=== PATIENT | female | born 1935 | race Caucasian/White ===

== ENCOUNTER 2017-10-05 14:32 | Emergency (ER) | payer MEDICARE, BC, OTHER ==
[2017-10-05 14:56] VITALS: BP 127/57
--- NOTE | 2017-10-05 15:51 | RAD ---
Indication: Posterior LEFT knee pain and edema. No preceding injury. Comparison: No relevant prior exams available on the [facility] PACS for comparison. Technique: LEFT knee: AP, tunnel, crosstable lateral, and sunrise views. Report: Negative for joint effusion, fracture, or malalignment. Minimal osteophytosis. Negative for significant joint space narrowing. Unremarkable soft tissue contours. IMPRESSION: Kellgren and Stewart grade 1 osteoarthritis.
--- NOTE | 2017-10-05 16:08 | UC ---
Knee Pain HPI - HPI Summary HPI Summary: 82 yo female with left knee pain (popliteal) x about a day last pm her leg buckled and she fell on knee hurts to lift leg no hip pain - History of Current Complaint Chief Complaint: UCLowerExtremity Stated Complaint: LEG COMPLAINT Time Seen by Provider: 10/05/17 14:57 Hx Obtained From: Patient Onset/Duration: Gradual Onset, Lasting Days Severity Initially: Moderate Severity Currently: Moderate Location Of Injury: leftt knee pain Pain Intensity: 6 - wt bearing Pain Scale Used: 0-10 Numeric Character: Dull, Aching Aggravating Factor(s): Movement, Weight Bearing Alleviating Factor(s): Rest Associated Signs And Symptoms: Positive: Negative Able to Bear Weight: Yes - Allergies/Home Medications Allergies/Adverse Reactions: Allergies Allergy/AdvReac Type Severity Reaction Status Date / Time Nabumetone [From Relafen] Allergy Swelling Verified 10/05/17 14:44 Of Face,Lips,& Throat Sulfa Antibiotics Allergy Rash Verified 10/05/17 14:44 PMH/Surg Hx/FS Hx/Imm Hx Endocrine History: Diabetes, Hypothyroidism, Dyslipidemia Cardiovascular History: Hypertension - Surgical History Surgical History: Yes Surgery Procedure, Year, and Place: HYSTERECTOMY 1984-APPENDECTOMY AGE 15- DETACHED RETINA-CLEARED BY ORBIT XRAY IN 2003 - Family History Known Family History: Positive: Hypertension Negative: Other - no breast cancer - Social History Alcohol Use: None Substance Use Type: None Smoking Status (MU): Never Smoked Tobacco Review of Systems Constitutional: Negative Skin: Negative Eyes: Negative ENT: Negative Respiratory: Negative Cardiovascular: Negative Gastrointestinal: Negative Genitourinary: Negative Motor: Negative Neurovascular: Negative Musculoskeletal: Arthralgia Neurological: Negative Psychological: Negative Is Patient Immunocompromised?: No All Other Systems Reviewed And Are Negative: Yes Physical Exam Triage Information Reviewed: Yes Appearance: Well-Appearing, No Pain Distress, Well-Nourished Vital Signs: Initial Vital Signs Temp 99.6 F 10/05/17 14:49 Pulse 74 10/05/17 14:49 Resp 16 10/05/17 14:49 BP 127/57 10/05/17 14:49 Pulse Ox 97 10/05/17 14:49 Vital Signs Reviewed: Yes Eyes: Positive: Conjunctiva Clear ENT: Positive: Hearing grossly normal. Negative: Nasal congestion, Nasal drainage, Trismus, Muffled voice, Uvula midline Neck: Positive: Supple, Nontender, No Lymphadenopathy Respiratory: Positive: Lungs clear, Normal breath sounds Cardiovascular: Positive: RRR, No Murmur Musculoskeletal: Positive: Strength Intact, No Edema - left calf not tender or warm, ROM Limited @ - left knee- pain with full extension, Other: - tender left popliteal fossa/no venous cords palpated Psychological Exam: Normal Skin Exam: Normal Knee Pain Course/Dx - Differential Dx/Diagnosis Provider Diagnoses: left knee pain. mild DJD. ? Bakers cyst Discharge - Discharge Plan Condition: Stable Disposition: HOME Patient Education Materials: Bakers Cyst (ED), Knee Pain (ED) Referrals: Prateek Hayes MD [Medical Doctor] - As Soon As Possible Additional Instructions: I am unsure of the cause of the pain behind your left knee It may be a Louis's Cyst You need further work up Dr. Hayes is the orthopedist decontaminator if you leg starts to swell or turns red/warm to touch you need to go to the ER try the knee immobilizer when wt bearing Images Front/Back of Body, Lg ([place]): 1 - circumference =R&L 2 - 10 cm below tibial turbercle. L=R
== END 2017-10-05 16:23 | disposition home or self-care (01) ==
LOC: UCEAST 14:32
DX: M25.562 Pain in left knee (principal); M17.12 Unilateral primary osteoarthritis, left knee; E11.9 Type 2 diabetes mellitus without complications; E03.9 Hypothyroidism, unspecified; E78.5 Hyperlipidemia, unspecified; I10 Essential (primary) hypertension; Z90.710 Acquired absence of both cervix and uterus; Z88.2 Allergy status to sulfonamides; Z88.8 Allergy status to other drugs, medicaments and biological substances
CPT/HCPCS: 99211; G0463

== ENCOUNTER 2017-12-14 17:12 | Emergency (ER) | payer MEDICARE, BC, OTHER ==
[2017-12-14 17:24] VITALS: BP 146/66
[2017-12-14] MEDS ORDERED: Acetaminophen TAB* 325 MG PO ONE (17:44)
--- NOTE | 2017-12-14 17:58 | UC ---
Enzo Hassan Gabriel, scribed for Brittney Sutherland MD on 12/14/17 at 1743 . Upper Extremity HPI - HPI Summary HPI Summary: This patient is a 82 year old F 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 Pt was bending over and pushing a box across the floor and she "tipped over" forward. It was a low impact fall since she was already bent over and land she landed on the carpet. Pt states she has frontal head discomfort since, but it getting better. Pt also reports discomfort in forearm. States put arm out to support self. No LOC. Pt denies bleeding from ears,, nose, mouth. No neck pain, back pain, ABD pain, SOB, nausea, increased LE pain from baseline, bruising, and any abrasions. no bleeding. Pt is on Plavix. She was able to get up by herself and ambulate after, she also ambulated into . pt has a cane but rarely uses. Pt is on plavix for a prior CVA. No analgesia taken pt's live with SO son present with her in room Patients medication reviewed during this visit. - History of Current Complaint Chief Complaint: UCUpperExtremity Stated Complaint: HEAD INJURY Time Seen by Provider: 12/14/17 17:20 Hx Obtained From: Patient Hx Last Menstrual Period: post menopause Onset/Duration: Lasting Minutes - 30, Still Present Severity Initially: Moderate Severity Currently: Moderate Pain Intensity: 6 Pain Scale Used: 0-10 Numeric Aggravating Factor(s): Movement Alleviating Factor(s): Rest, Other: - time Associated Signs And Symptoms: Negative: Bruising - Allergies/Home Medications Allergies/Adverse Reactions: Allergies Allergy/AdvReac Type Severity Reaction Status Date / Time nabumetone [From Relafen] Allergy Swelling Verified 12/14/17 17:25 Of Face,Lips,& Throat Sulfa (Sulfonamide Allergy Rash Verified 12/14/17 17:25 Antibiotics) PMH/Surg Hx/FS Hx/Imm Hx Previously Healthy: Yes Cardiovascular History: Cardiac Disease, Hypertension Neurological History: CVA - Surgical History Surgical History: Yes Surgery Procedure, Year, and Place: HYSTERECTOMY 1984-APPENDECTOMY AGE 15- DETACHED RETINA-CLEARED BY ORBIT XRAY IN 2003. MEDTRONIC LINQ 11-OK FOR UP TO 3T-PLACED AT [facility] 06/2016-ALL INFO DOCUTMENTED - Family History Known Family History: Positive: Hypertension, Renal Disease Negative: Respiratory Disease, Seizure Disorder, Other - no breast cancer - Social History Occupation: Retired Lives: With Family Alcohol Use: None Substance Use Type: None Smoking Status (MU): Never Smoked Tobacco Review of Systems Constitutional: Negative Skin: Other - no brusing, no abraison ENT: Negative Respiratory: Negative Musculoskeletal: Other: - RUE pain Neurological: Headache - frontal All Other Systems Reviewed And Are Negative: Yes Physical Exam Triage Information Reviewed: Yes Appearance: Well-Appearing, No Pain Distress, Well-Nourished Vital Signs: Initial Vital Signs Temp 97.7 F 12/14/17 17:17 Pulse 77 12/14/17 17:17 Resp 16 12/14/17 17:17 BP 146/66 12/14/17 17:17 Pulse Ox 99 12/14/17 17:17 Vital Signs Reviewed: Yes Eye Exam: Normal Eyes: Positive: Conjunctiva Clear ENT Exam: Normal ENT: Positive: Normal ENT inspection, Hearing grossly normal, Pharynx normal, TMs normal Dental Exam: Normal Neck exam: Normal Neck: Positive: Supple, Nontender, No Lymphadenopathy Respiratory Exam: Normal Respiratory: Positive: Chest non-tender, Lungs clear, Normal breath sounds, No respiratory distress, No accessory muscle use Cardiovascular Exam: Normal Cardiovascular: Positive: RRR, No Murmur, Pulses Normal Abdominal Exam: Normal Abdomen Description: Positive: Nontender, No Organomegaly, Soft Musculoskeletal: Positive: Other: - no pain c/t/l/s Full AROM c spine without difficulty or limitation Full AROM LUE RUE: + abduction, extend right shoulder + flex/ext elbow with mild discomfort prox forearm + pronate/supinate with mild discomfort prox forearm + flex/ext wrist minimal discomfort with direct palp right prox forearm, dorsal side no crepitus, ecchymosis, edema Neurological Exam: Normal Psychological Exam: Normal Skin Exam: Normal, Other - No ecchymosis, abraison Diagnostics - Radiology forearm Xray Radiology Interpretation Completed By: Radiologist - SOFT TISSUE SWELLING, NO FRACTURE IS SEEN. Dr. Sutherland has reviewed this report. CT BRain Radiology Interpretation Completed By: Radiologist - 1. NO EVIDENCE FOR ACUTE INTRACRANIAL ABNORMALITY. 2. TINY AIR-FLUID LEVEL WITHIN THE LEFT MAXILLARY SINUS Dr. Sutherland has reviewed this report. Re-Evaluation - Re-Evaluation First Eval Comment: reviewed imagingwith pt and son. apap Q6-8. ice. stretch. cane. return precautions Upper Extremity Course/Dx - Course Course Of Treatment: BP noted and advised to follow up with PCP. Pt with mechanical fall forward while bending forward. Pt struck frontal scalp and discomfort to right forearm. No bleeding, skin wounds. will CT head and forearm - low suspicion for fx or bleed. APAP. reassess - Differential Dx/Diagnosis Provider Diagnoses: hypertension, contusion Discharge - Discharge Plan Condition: Stable Disposition: HOME Patient Education Materials: Contusion in Adults (ED) Referrals: Estefanía MOTLEY,Roxanne Munguia [Primary Care Provider] - Additional Instructions: Your blood pressure was elevated during today's visit. Please follow up with your primary care provider in 1-2 weeks. - Okay to take Tylenol every 6-8 hours for discomfort. Take with food - anticipate increased discomfort over the next 1-2 days. This is normal after a fall - okay to apply ice (wrapped in a towel) 20 minutes at a time, 2-3 times a day for pain. Do not put directly on your skin - this may cause vides bite - slow, gentle stretching exercises is important to help with body aches following a fall - call your doctor or return with questions or concerns The documentation as recorded by the Enzo short Gabriel accurately reflects the service I personally performed and the decisions made by me, Brittney Sutherland MD.
--- NOTE | 2017-12-14 18:15 | RAD ---
INDICATION: Right forearm injury. TECHNIQUE: 2 views of the right forearm were obtained. FINDINGS: There is soft tissue swelling in the proximal forearm. The bones are normal limits. No fracture is seen. IMPRESSION: SOFT TISSUE SWELLING, NO FRACTURE IS SEEN.
--- NOTE | 2017-12-14 18:34 | RAD ---
INDICATION: Head injury. COMPARISON: Comparison is made with a prior CT of the brain from May 13, 2016. TECHNIQUE: Contiguous axial sections of the brain were obtained from the skull base to the vertex without contrast. FINDINGS: The ventricles, cisterns and sulci are enlarged consistent with diffuse atrophy. There are small areas of decreased density in the subcortical and periventricular white matter suggestive of mild chronic small vessel ischemic changes. No other focal abnormality or mass effect is seen. There is no evidence for hemorrhage. There is a tiny air-fluid level within the left maxillary sinus. The visualized portion of the paranasal sinuses and mastoid air cells otherwise appear clear. IMPRESSION: 1. NO EVIDENCE FOR ACUTE INTRACRANIAL ABNORMALITY. 2. TINY AIR-FLUID LEVEL WITHIN THE LEFT MAXILLARY SINUS
== END 2017-12-14 18:54 | disposition home or self-care (01) ==
LOC: UCEAST 17:12
DX: S09.90XA Unspecified injury of head, initial encounter (principal); S50.11XA Contusion of right forearm, initial encounter; W18.30XA Fall on same level, unspecified, initial encounter; Y93.89 Activity, other specified; Y92.9 Unspecified place or not applicable; I11.9 Hypertensive heart disease without heart failure; Z86.73 Personal history of transient ischemic attack (TIA), and cerebral infarction without residual deficits; Z79.01 Long term (current) use of anticoagulants; Z88.2 Allergy status to sulfonamides; Z88.8 Allergy status to other drugs, medicaments and biological substances
CPT/HCPCS: 70450; 99212; A9270-GY; G0463

== ENCOUNTER 2018-02-15 07:57 | Emergency (ER) | payer MEDICARE, BC, OTHER ==
--- OUTSIDE RECORDS SUMMARY | 2018-02-15 08:08 | XMS REPORT ---
:1935 External Reference #:[id number] Author Organization [facility] Address [address] [place] [address] Phone [phone] Care Team Providers Name Role Phone Roxanne José Primary Care Physician Unavailable Payers Type Date Identification Numbers Payment Provider Subscriber Medicare Primary Policy Number: [id number] Medicare - NGS Emma Vergara PayID: [id number] [address] [place] [address] [employer] Policy Number: [id number] [place] [employer] Emma Vergara Group Number: [id number] [address] [address] PayID: [id number] [place] [id number] Commercial Policy Number: [id number] Janice Neeraj Vergara Group Number: [id number] [address] PayID: [id number] [place] [address] Problems Date Description Provider Status Onset: Hearing loss Active Onset: Gastroesophageal reflux disease Active Onset: Hyperthyroidism Active Onset: Tachycardia Active Onset: Arthritis Active Onset: Neuralgia Active Onset: Anxiety attack Active Onset: 05/02/2015 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 Active Onset: 05/02/2015 Cortical senile cataract Vale Charles O.D. 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 Active Onset: 02/13/2016 Retinal detachment Vale Charles O.D. Active Onset: 02/13/2016 Hypermetropia Vale Charles O.D. Active Onset: 02/13/2016 Regular astigmatism Vale Charles O.D. Active Onset: 02/13/2016 Presbyopia Vale Charles O.D. 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 twice a day prn Omeprazole Active Capsules DR 20mg Unknown 000 Synthroid Active Tablets 75mcg Unknown 000 Atenolol Active Tablets 50mg Unknown [address] 81mg twice a Unknown 000 day by mouth Vitamin B-12 Active Tablets Sub 500mcg Unknown 000 Clonazepam Active Tablets 1mg Unknown 000 Lexapro Active Tablets 10mg Unknown 000 Vitamin D3 Active Tablets 1000Unit Unknown 000 Carbamazepine ER Active Caps ER 200mg Unknown 000 12HR Atorvastatin Active Tablets 20mg Unknown Calcium 000 Clopidogrel Active Tablets 75mg Unknown Bisulfate 000 Medications Administered in Office Medication Date Status Form Strength Qnty SIG Indications Ordering Provider Crizal Administered Injection [place] 3 Elinor Thrasher Results Description No Information Procedures Date CPT Code Description Status 01/15/2017 85390 Est Patient Comprehensive Exam Completed 02/13/2016 51550 Determination Of Refractive State Completed 02/13/2016 17935 Est Patient Comprehensive Exam Completed 05/02/2015 51791 Est Patient Comprehensive Exam Completed 04/28/2014 95283 Determination Of Refractive State Completed 04/28/2014 93012 Est Patient Comprehensive Exam Completed 09/21/2013 39297 Est Patient Comprehensive Exam Completed 03/24/2013 75263 Est Patient Intermediate Exam Completed 09/21/2012 54775 Pachymetry Completed 03/25/2012 45367 Est Patient Intermediate Exam Completed 03/25/2011 59881 Est Patient Comprehensive Exam Completed 07/24/2010 07062 Est Patient Intermediate Exam Completed 03/20/2010 48260 Est Patient Comprehensive Exam Completed 06/21/2009 68741 Determination Of Refractive State Completed 06/21/2009 72147 Est Patient Comprehensive Exam Completed 12/11/2008 36600 Est Patient Intermediate Exam Completed 07/24/2008 21952 Determination Of Refractive State Completed 07/24/2008 61838 Est Patient Comprehensive Exam Completed 11/11/2006 60422 Recheck Completed 01/15/2006 11000 Determination Of Refractive State Completed 01/15/2006 11635 Est Patient Comprehensive Exam Completed 08/15/2003 113 Crizal Completed Encounters Type Date Location Provider CPT E/M Dx Office Visit 09/21/2012 11:15a Scar Alvarez MD, Dave Carrillo M.D. [id number] 366.15 pc 371.57 Office Visit 09/24/2011 1:00p Scar Alvarez MD, Dave Carrillo M.D. 69591 371.57 pc Office Visit 09/02/2010 4:15p Scar Alvarez MD, Denise Bell O.D. 47756 375.15 pc Office Visit 08/26/2010 2:15p Scar Alvarez MD, Denise Bell O.D. 77861 375.15 pc 371.57 Office Visit 08/01/2010 11:45a Scar Alvarez MD, Denise Bell O.D. 54746 371.57 pc Plan of Care 02/10/2018 - Vale Charles O.D.H25.13 Age-related nuclear cataract, bilateralComments:You have nuclear sclerosis, which is hardening of your natural lens. This is normal as a person ages.Follow up:1 year You can expect to have your eyes dilated at your next visit. If Dr. Charles orders any additional testing, it may require extra time. We recommend that you bring sunglasses, as dilation drops often make you light sensitive until they wear off. We always recommend you bring someone to drive you home if you are uncomfortable driving with your eyes dilated. If you have any questions before your next visit, feel free to call our office at .H18.51 Endothelial corneal dystrophyComments:You have Fuch's corneal dystrophy. This may cause reduced vision. If you are noticing blurred vision, especially in the morning, use Karolina 128 ointment in affected eyes before bedtime.H52.03 Hypermetropia, [id number] Regular astigmatism, bilateralComments: Astigmatism is a common vision condition that happens when a person's cornea is not symmetrical. Dr. Charles has given you a prescription to correct for this.H52.4 PresbyopiaComments:Smoking can increase the risk of developing or worsening any eye related disease, as well as affect your overall health. If you are a smoker, we strongly recommend that you quit.If you are not a smoker, we strongly recommend that you do not start. You have presbyopia. This is when the lens in your eye loses the ability to change focus, and happens as we age. A pair of reading glasses will help you see up close.
--- OUTSIDE RECORDS SUMMARY | 2018-02-15 08:08 | XMS REPORT ---
:1935 External Reference #:[id number] Author Organization [facility] [employer] Address [address] [place] [address] Phone [phone] Care Team Providers Name Role Phone Roxanne José Primary Care Physician Unavailable Payers Type Date Identification Numbers Payment Provider Subscriber Medicare Primary Policy Number: [id number] Medicare - NGS Emma Vergara PayID: [id number] [address] [place] [address] [employer] Policy Number: [id number] [place] [employer] Emma Vergara Group Number: [id number] [address] [address] PayID: [id number] [place] [address] Commercial Policy Number: [id number] Janice Neeraj Vergara Group Number: [id number] [address] PayID: [id number] [place] [address] Problems Date Description Provider Status Onset: Hearing [...] Marital Status Has been 1 time 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 twice a day prn Omeprazole [...] Procedures Date CPT Code Description Status 01/15/2017 08907 Est Patient Comprehensive Exam Completed 02/13/2016 82602 Determination Of Refractive State Completed 02/13/2016 48145 Est Patient Comprehensive Exam Completed 05/02/2015 67493 Est Patient Comprehensive Exam Completed 04/28/2014 08305 Determination Of Refractive State Completed 04/28/2014 30871 Est Patient Comprehensive Exam Completed 09/21/2013 97332 Est Patient Comprehensive Exam Completed 03/24/2013 75149 Est Patient Intermediate Exam Completed 09/21/2012 53982 Pachymetry Completed 03/25/2012 53568 Est Patient Intermediate Exam Completed 03/25/2011 23043 Est Patient Comprehensive Exam Completed 07/24/2010 09120 Est Patient Intermediate Exam Completed 03/20/2010 94557 Est Patient Comprehensive Exam Completed 06/21/2009 50752 Determination Of Refractive State Completed 06/21/2009 78643 Est Patient Comprehensive Exam Completed 12/11/2008 32071 Est Patient Intermediate Exam Completed 07/24/2008 69609 Determination Of Refractive State Completed 07/24/2008 21295 Est Patient Comprehensive Exam Completed 11/11/2006 54295 Recheck Completed 01/15/2006 41951 Determination Of Refractive State Completed 01/15/2006 63978 Est Patient Comprehensive Exam Completed 08/15/2003 113 Crizal Completed Encounters Type Date Location Provider CPT E/M Dx Office Visit 09/21/2012 11:15a Scar Alvarez MD, Dave Carrillo M.D. 99753 366.15 pc 371.57 Office Visit 09/24/2011 1:00p Scar Alvarez MD, Dave Carrillo M.D. 89104 371.57 pc Office Visit 09/02/2010 4:15p Scar Alvarez MD, Denise Bell O.D. 67595 375.15 pc Office Visit 08/26/2010 2:15p Scar Alvarez MD, Denise Bell O.D. 42326 375.15 pc 371.57 Office Visit 08/01/2010 11:45a Scar Alvarez MD, Denise Bell O.D. 35800 371.57 pc Plan of Care 02/10/2018 - [...] ointment in affected eyes before bedtime.H52.03 Hypermetropia, [id number] Regular astigmatism, bilateralComments: Astigmatism is a common [...]
--- OUTSIDE RECORDS SUMMARY | 2018-02-15 08:09 | XMS REPORT ---
:1935 External Reference #:[id number] Author Organization [facility] Address [address] [address] Phone [phone] Care Team Providers Name Role Phone Roxanne José PA Primary Care Physician Unavailable Payers Type Date Identification Numbers Payment Provider Subscriber Medicare Primary Effective: Policy Number: Medicare Emma Vergara 2000 [id number] PayID: [id number] [address] [place] [address] Medigap Part B Effective: 2012 Policy Number: BS Facets Emma Vergara [id number] PayID: [id number] [address] [address] [place] [address] Medigap Part B Policy Number: [id number] [facility] Emma Vergara Group Number: [id number] [address] PayID: [id number] [place] [address] Problems Date Description Provider Status Onset: 05/30/2015 Trigeminal neuralgia Gui Rich M.D. Active Onset: 03/20/2016 Essential hypertension Ria Brothers M.D. Active Onset: 06/02/2016 Cerebral artery occlusion Ria Brothers M.D. Active Onset: 06/02/2016 Mixed hyperlipidemia Ria Brothers M.D. Active Onset: 12/05/2016 Presence of other cardiac implants Ria Brothers M.D. Active and grafts Onset: 01/22/2017 Sinus node dysfunction Ria Brothers M.D. Active Onset: 01/22/2017 Supraventricular premature beats Ria Brothers M.D. Active Onset: 01/22/2017 History of cerebrovascular accident Ria Brothers M.D. Active without residual deficits Onset: 10/09/2017 Localized, primary osteoarthritis Ruthy Tolliver M.D. Active Family History Date Family Member(s) Problem(s) Comments General Heart Disease General Hypertension General Stroke General Cancer Father Emphysema Mother Kidney Disease First Brother Emphysema Second Brother Liver Cancer Third Brother Lung Cancer First Sister Cerebrovascular Accident (CVA) ? arrhythmia, in [place], occured 2016. Social History Type Date Description Comments Lives With Occupation Retired Cigarette Use Never Smoked Cigarettes ETOH Use Never used alcohol Smoking Patient has never smoked Recreational Drug Use Denies Drug Use Daily Caffeine once or twice a week hot chocolate only Exercise Type/Frequency Exercises sporadically General Hx Text Worked in a [employer] ([place]) Allergies, Adverse Reactions, Alerts Date Description Reaction Status Severity Comments 04/12/2013 Relafen active 04/12/2013 Sulfa Antibiotics active Medications Medication Date Status Form Strength Qnty SIG Indications Ordering Provider Clonazepam 00/00/ Active Tablets 1mg 20tabs 1 tab Unknown 0000 three times a day . MDD=3 Lexapro 00/00/ Active Tablets 10mg 30tabs 1 po bid Unknown 0000 Refresh 00/00/ Active Solution 1% 1 gtt each Unknown Liquigel 0000 eye prn Karolina 128 00/00/ Active Solution 2% 1 gtt each Unknown 0000 eye bid Synthroid 00/00/ Active Tablets 75mcg 90tabs 1 po qd Unknown 0000 Carbamazepine 00/00/ Active Tablets 200mg 180tab 1 tab by Gui Mcintosh 0000 s mouth Hilario, twice a M.D. day Atenolol 0000/ Active Tablets 50mg 180tab 1 by mouth Ria 0000 s every Deneen, morning M.D. and 1 tab every evening Vitamin B-12 00/00/ Active Tablets 500mcg 1 tab po Unknown 0000 every day Natural Vitamin D-3 00/00/ Active Capsule 1000mg 1 cap po Unknown 0000 daily Atorvastatin 00/00/ Active Tablets 20mg take 1 Unknown Calcium 0000 tablet at bedtime Clopidogrel 00/00/ Active Tablets 75mg 90tabs 1 by mouth Gui Mcintosh Bisulfate 0000 every day Rama Rich Acetaminophen 00/00/ Active Tablets 325mg 2 tablets Unknown 0000 by mouth every 6 hours as needed for pain/fever Vitamin C / Active Tablets 500mg 1 by mouth Unknown 0000 twice a day Omeprazole / Hx Capsules 20mg 1 po qam Unknown 0000 - DR 2015 Aspirin Low / Hx Tablets 81mg 30tabs 1 po qd Unknown Dose 0000 - 2016 Iron Supplement / Hx Tablets 325(65Fe) by mouth Unknown 0000 - mg every day 2016 Acetaminophen / Hx Tablets 500mg 2 tab by Unknown Extra Strength 0000 - mouth daily 2015 needed for arthritis Medications Administered in Office Medication Date Status Form Strength Qnty SIG Indications Ordering Provider Depomedrol 40MG 10/09/ Administered Injection Ruthy 2017 Rama Tolliver Inj, 03/18/ Administered Injection Mario Gorman Regadenoson, 0.1 2015 MG Rama Tong, FACC, FASNC Aminophylline 03/18/ Administered Injection Mario Gorman 2015 Rama Tong, FACC, FASDOMINGO Technetium TC 03/18/ Administered Injection Mario Gorman 99M Tetrofosmin, 2016 Ran, Per Unit Dose Up M.D., To 40 FACC, Millicuries FASNC Technetium TC 03/18/ Administered Injection Ria 99M Tetrofosmin, 2016 Deneen, Per Unit Dose Up M.D. To 40 Millicuries Vital Signs Date Vital Result Comment 01/22/2018 Height 60 inches 5'0" Weight 180.75 lb with shoes Heart Rate 80 /min BP Systolic Sitting 128 mmHg Rue reg cuff BP Diastolic Sitting 60 mmHg Rue reg cuff BP Systolic Standing 122 mmHg Rue reg cuff BP Diastolic Standing 70 mmHg Rue reg cuff Respiratory Rate 16 /min BMI (Body Mass Index) 35.3 kg/m2 11/04/2017 Height 60 inches 5'0" Weight 179.00 lb Heart Rate 72 /min BP Systolic 150 mmHg BP Diastolic 60 mmHg Pain Level 10 BMI (Body Mass Index) 35.0 kg/m2 11/02/2017 Height 60 inches 5'0" Weight 179.00 lb Heart Rate 71 /min BP Systolic Sitting 136 mmHg BP Diastolic Sitting 72 mmHg Respiratory Rate 17 /min BMI (Body Mass Index) 35.0 kg/m2 10/21/2017 Height 60 inches 5'0" Weight 179.00 lb BP Systolic 126 mmHg BP Diastolic 60 mmHg Body Temperature 97.5 F Pain Level 8 BMI (Body Mass Index) 35.0 kg/m2 10/09/2017 Height 63 inches 5'3" Weight 179.00 lb BP Systolic 148 mmHg BP Diastolic 80 mmHg Body Temperature 97.6 F BMI (Body Mass Index) 31.7 kg/m2 07/24/2017 Height 63.5 inches 5'3.50" Weight 180.00 lb w/ shoes Heart Rate 70 /min reg BP Systolic Sitting 130 mmHg Lue, lg cuff BP Diastolic Sitting 70 mmHg Lue, lg cuff Respiratory Rate 16 /min BMI (Body Mass Index) 31.4 kg/m2 Ejection Fraction 60% as of 04/2006 echo 05/28/2017 Height 63.5 inches 5'3.50" Weight 178.25 lb with shoes Heart Rate 76 /min BP Systolic Sitting 148 mmHg Rue reg cuff BP Diastolic Sitting 66 mmHg Rue reg cuff BP Systolic Standing 142 mmHg Rue reg cuff BP Diastolic Standing 66 mmHg Rue reg cuff Respiratory Rate 16 /min BMI (Body Mass Index) 31.1 kg/m2 Ejection Fraction 60% 04/27/2006-echo 03/03/2017 Height 63.5 inches 5'3.50" Weight 176.00 lb with shoes Heart Rate 72 /min BP Systolic Sitting 134 mmHg Rue reg cuff BP Diastolic Sitting 56 mmHg Rue reg cuff BP Systolic Standing 138 mmHg Rue regc uff BP Diastolic Standing 66 mmHg Rue regc uff Respiratory Rate 16 /min BMI (Body Mass Index) 30.7 kg/m2 Ejection Fraction 60% echo 04/200601/22/2017 Height 63.5 inches 5'3.50" Weight 172.00 lb w/ shoes Heart Rate 72 /min reg BP Systolic Sitting 138 mmHg Lue, reg cuff BP Diastolic Sitting 70 mmHg Lue, reg cuff BP Systolic Standing 130 mmHg Lue BP Diastolic Standing 66 mmHg Lue Respiratory Rate 16 /min BMI (Body Mass Index) 30.0 kg/m2 12/05/2016 Height 63.5 inches 5'3.50" Weight 172.00 lb Heart Rate 64 /min BP Systolic Sitting 142 mmHg left arm, reg cuff BP Diastolic Sitting 74 mmHg left arm, reg cuff BP Systolic Standing 134 mmHg left arm, reg cuff BP Diastolic Standing 72 mmHg left arm, reg cuff Respiratory Rate 16 /min BMI (Body Mass Index) 30.0 kg/m2 Ejection Fraction 55-60% 05/15/16 Fernando 10/08/2016 Height 63.5 inches 5'3.50" Weight 178.00 lb Heart Rate 68 /min BP Systolic Sitting 116 mmHg BP Diastolic Sitting 60 mmHg Respiratory Rate 16 /min BMI (Body Mass Index) 31.0 kg/m2 08/08/2016 Height 63.5 inches 5'3.50" Weight 168.00 lb Heart Rate 78 /min BP Systolic Sitting 136 mmHg BP Diastolic Sitting 64 mmHg BMI (Body Mass Index) 29.3 kg/m2 06/27/2016 Height 63.5 inches 5'3.50" Weight 169.00 lb with shoes Heart Rate 64 /min BP Systolic Sitting 132 mmHg Ra reg cuff BP Diastolic Sitting 64 mmHg Ra reg cuff BP Systolic Standing 132 mmHg Ra reg cuff BP Diastolic Standing 66 mmHg Ra reg cuff Respiratory Rate 17 /min BMI (Body Mass Index) 29.5 kg/m2 Ejection Fraction 60% 04/27/06 06/16/2016 Height 63.5 inches 5'3.50" Weight 170.00 lb Heart Rate 69 /min BP Systolic Sitting 130 mmHg BP Diastolic Sitting 72 mmHg Respiratory Rate 16 /min O2 % BldC Oximetry 97 % BMI (Body Mass Index) 29.6 kg/m2 06/02/2016 Height 63.5 inches 5'3.50" Weight 170.00 lb without shoes Heart Rate 75 /min BP Systolic Sitting 110 mmHg Ra reg cuff BP Diastolic Sitting 60 mmHg Ra reg cuff BP Systolic Standing 118 mmHg Ra reg cuff BP Diastolic Standing 74 mmHg Ra reg cuff Respiratory Rate 17 /min BMI (Body Mass Index) 29.6 kg/m2 Ejection Fraction 60% date 04/27/06 ECHO 03/20/2016 Height 63.5 inches 5'3.50" Weight 175.00 lb with shoes Heart Rate 72 /min regular BP Systolic Sitting 112 mmHg right arm reg cuff BP Diastolic Sitting 64 mmHg right arm reg cuff BP Systolic Standing 116 mmHg right arm reg cuff BP Diastolic Standing 68 mmHg right arm reg cuff Respiratory Rate 18 /min BMI (Body Mass Index) 30.5 kg/m2 12/07/2015 Height 63.5 inches 5'3.50" Weight 173.31 lb with shoes Heart Rate 84 /min BP Systolic Sitting 132 mmHg Ra reg cuff BP Diastolic Sitting 62 mmHg Ra reg cuff BP Systolic Standing 136 mmHg Ra reg cuff BP Diastolic Standing 58 mmHg Ra reg cuff Respiratory Rate 16 /min BMI (Body Mass Index) 30.2 kg/m2 05/30/2015 Height 63.5 inches 5'3.50" Weight 180.00 lb Heart Rate 80 /min BP Systolic Sitting 130 mmHg BP Diastolic Sitting 70 mmHg Respiratory Rate 17 /min BMI (Body Mass Index) 31.4 kg/m2 04/11/2014 Height 63.5 inches 5'3.50" Weight 184.00 lb Heart Rate 72 /min BP Systolic Standing 136 mmHg BP Diastolic Standing 64 mmHg Respiratory Rate 16 /min BMI (Body Mass Index) 32.1 kg/m2 04/12/2013 Heart Rate 72 /min BP Systolic Sitting 126 mmHg BP Diastolic Sitting 26 mmHg Respiratory Rate 15 /min Results Test Date Test Result H/L Range Note Urinalysis Profile 05/13/2016 Urine Color Yellow Urine Appearance Clear Urine Specific [place] > 1.060 High 1.010-1.030 Urine pH 5.0 5-9 Urine Urobilinogen Negative Negative Urine Ketones Negative Negative Urine Protein Negative Negative Urine Leukocytes Negative Negative Urine Blood Negative Negative Urine Nitrite Negative Negative Urine Bilirubin Negative Negative Urine Glucose Negative Negative Type & Screen 05/13/2016 Patient Blood Type A Negative Antibody Screen NEGATIVE Laboratory test finding 05/13/2016 Troponin-I (TnI) 0.00 ng/mL <0.03 1 Lipid Profile (Trig/Chol/HDL) 05/13/2016 Triglycerides 215 mg/dL 2 Cholesterol 224 mg/dL 3 HDL Cholesterol 44.7 mg/dL 4 LDL Cholesterol 136 mg/dL 5 Comp Metabolic Panel 05/13/2016 Sodium 135 mmol/L 133-145 Potassium 4.2 mmol/L 3.5-5.0 Chloride 101 mmol/L 101-111 Co2 Carbon Dioxide 29 mmol/L 22-32 Anion Gap 5 mmol/L 2-11 Glucose 95 mg/dL 70-100 Blood Urea Nitrogen 26 mg/dL High 6-24 Creatinine 1.04 mg/dL High 0.51-0.95 BUN/Creatinine Ratio 25.0 High 8-20 Calcium 8.7 mg/dL 8.6-10.3 Total Protein 6.5 g/dL 6.4-8.9 Albumin 3.7 g/dL 3.2-5.2 Globulin 2.8 g/dL 2-4 Albumin/Globulin Ratio 1.3 1-3 Total Bilirubin 0.20 mg/dL 0.2-1.0 Alkaline Phosphatase 97 U/L 34-104 Alt 11 U/L 7-52 Ast 15 U/L 13-39 Egfr Non- 50.6 >60 Egfr 65.1 >60 6 Laboratory test finding 05/13/2016 Partial Thrombo Time 27.5 seconds 26.0 -36.3 PTT Inr/Protime 05/13/2016 Inr 0.91 0.89-1.11 Laboratory test finding 05/13/2016 Lactic Acid 0.7 mmol/L 0.5-2.0 7 CBC Auto Diff 05/13/2016 White Blood Count 6.7 10^3/uL 3.5-10.8 Red Blood Count 3.81 10^6/uL Low 4.0-5.4 Hemoglobin 10.0 g/dL Low 12.0-16.0 Hematocrit 31 % Low 35-47 Mean Corpuscular Volume 81 fL 80-97 Mean Corpuscular Hemoglobin 26 pg Low 27-31 Mean Corpuscular HGB Conc 33 g/dL 31-36 Red Cell Distribution Width 18 % High 10.5-15 Platelet Count 345 10^3/uL 150-450 Mean Platelet Volume 7 um3 Low 7.4-10.4 Abs Neutrophils 4.4 10^3/uL 1.5-7.7 Abs Lymphocytes 1.4 10^3/uL 1.0-4.8 Abs Monocytes 0.6 10^3/uL 0-0.8 Abs Eosinophils 0.1 10^3/uL 0-0.6 Abs Basophils 0.1 10^3/uL 0-0.2 Abs Nucleated RBC 0 10^3/uL Granulocyte % 66.5 % 38-83 Lymphocyte % 21.6 % Low 25-47 Monocyte % 9.4 % High 1-9 Eosinophil % 1.7 % 0-6 Basophil % 0.8 % 0-2 Nucleated Red Blood Cells % 0 1 Reference Range and Interpretation: TnI (ng/mL) Interpretation Less Than 0.03 ng/mL Not supportive of diagnosis of [place] 0.03 - 0.50 ng/mL Indeterminate: suggest serial studies if clinically indicated. Greater than 0.5 ng/mL Consistent with diagnosis of [place] 2 Desirable <150 Borderline high 150-199 High 200-499 Very High >500 3 Desirable <200 Borderline high 200-239 High >239 4 Low <40 Desirable: 40-60 High: >60 5 Desirable: <100 mg/dL Near Optimal: 100-129 mg/dL Borderline High: 130-159 mg/dL High: 160-189 mg/dL Very High: >189 mg/dL 6 Because ethnic data is not always readily available, this report includes an eGFR for both -Americans and non- Americans. The National Kidney Disease Education Program (NKDEP) does not endorse the use of the MDRD equation for patients that are not between the ages of 18 and 70, are , have extremes of body size, muscle mass, or nutritional status, or are non- or non-. According to the National Kidney Foundation, irrespective of diagnosis, the stage of the disease is based on the level of kidney function: Stage Description GFR(mL/min/1.73 m(2)) 1 Kidney damage with normal or decreased GFR 90 2 Kidney damage with mild decrease in GFR 60-89 3 Moderate decrease in GFR 30-59 4 Severe decrease in GFR 15-29 5 Kidney failure <15 (or dialysis) 7 [facility] Severe Sepsis and Septic Shock Management Bundle Measure requires all lactic acids initially measuring >2.0 mmol/L be repeated. Procedures Date CPT Code Description Status 01/22/2018 50643 EKG Tracing & Interpretation Completed 12/30/2017 19806 Implantable Cardio System Loop Recorder Sys Remota Data Completed Acquistio 12/30/2017 71927 Interrogation Dev Loop Recorder Incl Physician Completed Analysis,Rev,Repor 11/29/2017 47991 Implantable Cardio System Loop Recorder Sys Remota Data Completed Acquistio 11/29/2017 57849 Interrogation Dev Loop Recorder Incl Physician Completed Analysis,Rev,Repor 10/29/2017 87432 Implantable Cardio System Loop Recorder Sys Remota Data Completed Acquistio 10/29/2017 59878 Interrogation Dev Loop Recorder Incl Physician Completed Analysis,Rev,Repor 10/09/2017 00882 Inject/Drain Joint/Bursa Major Completed 09/28/2017 94795 Implantable Cardio System Loop Recorder Sys Remota Data Completed Acquistio 09/28/2017 89838 Interrogation Dev Loop Recorder Incl Physician Completed Analysis,Rev,Repor 08/28/2017 42620 Implantable Cardio System Loop Recorder Sys Remota Data Completed Acquistio 08/28/2017 25398 Interrogation Dev Loop Recorder Incl Physician Completed Analysis,Rev,Repor 07/28/2017 52521 Interrogation Dev Loop Recorder Incl Physician Completed Analysis,Rev,Repor 07/28/2017 75907 Implantable Cardio System Loop Recorder Sys Remota Data Completed Acquistio 06/27/2017 57082 Implantable Cardio System Loop Recorder Sys Remota Data Completed Acquistio 06/27/2017 65620 Interrogation Dev Loop Recorder Incl Physician Completed Analysis,Rev,Repor 05/28/2017 78088 EKG Tracing & Interpretation Completed 05/27/2017 11387 Implantable Cardio System Loop Recorder Sys Remota Data Completed Acquistio 05/27/2017 12796 Interrogation Dev Loop Recorder Incl Physician Completed Analysis,Rev,Repor 04/26/2017 70614 Implantable Cardio System Loop Recorder Sys Remota Data Completed Acquistio 04/26/2017 48925 Interrogation Dev Loop Recorder Incl Physician Completed Analysis,Rev,Repor 03/26/2017 75972 Implantable Cardio System Loop Recorder Sys Remota Data Completed Acquistio 03/26/2017 16467 Interrogation Dev Loop Recorder Incl Physician Completed Analysis,Rev,Repor 02/23/2017 15380 Implantable Cardio System Loop Recorder Sys Remota Data Completed Acquistio 02/23/2017 90432 Interrogation Dev Loop Recorder Incl Physician Completed Analysis,Rev,Repor 01/23/2017 63912 Interrogation Dev Loop Recorder Incl Physician Completed Analysis,Rev,Repor 01/23/2017 82555 Implantable Cardio System Loop Recorder Sys Remota Data Completed Acquistio 01/22/2017 10412 EKG Tracing & Interpretation Completed 12/23/2016 95356 Implantable Cardio System Loop Recorder Sys Remota Data Completed Acquistio 12/23/2016 36596 Interrogation Dev Loop Recorder Incl Physician Completed Analysis,Rev,Repor 12/05/2016 36994 EKG Tracing & Interpretation Completed 11/22/2016 57587 Implantable Cardio System Loop Recorder Sys Remota Data Completed Acquistio 11/22/2016 08841 Interrogation Dev Loop Recorder Incl Physician Completed Analysis,Rev,Repor 10/22/2016 75198 Implantable Cardio System Loop Recorder Sys Remota Data Completed Acquistio 10/22/2016 26438 Interrogation Dev Loop Recorder Incl Physician Completed Analysis,Rev,Repor 09/21/2016 48386 Implantable Cardio System Loop Recorder Sys Remota Data Completed Acquistio 09/21/2016 88912 Interrogation Dev Loop Recorder Incl Physician Completed Analysis,Rev,Repor 08/21/2016 29832 Interrogation Dev Loop Recorder Incl Physician Completed Analysis,Rev,Repor 08/21/2016 08785 Implantable Cardio System Loop Recorder Sys Remota Data Completed Acquistio 08/08/2016 02162 Nerve Conduction 07-08 Studies Completed 07/21/2016 06656 Implantable Cardio System Loop Recorder Sys Remota Data Completed Acquistio 07/21/2016 28755 Interrogation Dev Loop Recorder Incl Physician Completed Analysis,Rev,Repor 06/19/2016 54566 Implant Cardiac Loop Recorder Completed 06/02/2016 46029 EKG Tracing & Interpretation Completed 05/15/2016 86409 Color Flow Doppler/Interp & Reprt Completed 05/15/2016 93108 Pulse Wave/Continuous-Interp.RPT Completed 05/15/2016 94329 Echocardiography, Transesophageal, Real Time W/Image 2D Completed W/W/O M-M 05/14/2016 02044 EKG, Interpretation Only Completed 03/18/2016 59745 Stress Test Completed 03/18/2016 50573 Myocardial Perfusion Imaging Tomographic (Spect) Completed Multiple Studies 12/07/2015 38528 EKG Tracing & Interpretation Completed Encounters Type Date Location Provider CPT E/M Dx Office Visit 11/04/2017 [facility] Ruthy Tolliver M.D. 69234 M25.562 11:15a Of Maria G M17.12 M25.462 S83.522D Office Visit 11/02/2017 11:45a [facility] Gui Rich, 17917 G50.0 Services Of Brendan Ontiveros M13.0 Z79.899 Z86.73 Office Visit 10/21/2017 11:15a [facility] Of Ruthy Tolliver M.D. 62746 M25.562 Maria G M17.12 M25.462 Office Visit 10/09/2017 2:45p [facility] Of Ruthy Tolliver M.D. 81790 M25.562 Maria G M17.12 M25.462 Office Visit 07/24/2017 11:40a [facility] Ria Brothers M.D. 86788 I63.9 [employer] [place] [facility] [place].1 I10 E78.2 I49.5 Office Visit 05/28/2017 1:00p [facility] Ria Brothers M.D. 76704 R00.0 [employer] F41.9 I49.1 I49.5 Office Visit 03/03/2017 11:45a [facility] Ria Brothers M.D. 75784 Z95.818 [employer] I49.5 Office Visit 01/22/2017 2:00p [facility] Ria Brothers M.D. 78916 I49.5 [employer] [place] [facility] [place].1 R00.2 Z86.73 D64.9 Office Visit 12/05/2016 1:00p [facility] Devi Brothers M.D. 86352 I63.9 [facility] E78.2 I10 Z95.818 D64.9 Office Visit 10/08/2016 1:45p [facility] Gui Rich, 66720 G56.03 Services Of [facility] M.D. G50.0 Z86.73 Z79.02 Office Visit 06/16/2016 10:45a [facility] Gui Rich, 22167 G50.0 Services Of [employer] M.D. G56.00 Z86.73 Z79.02 Office Visit 06/02/2016 1:00p [facility] Devi Brothers M.D. 15426 I63.9 [facility] R00.2 E78.2 I10 Office Visit 05/15/2016 1:30p [facility] [place], 37491 I63.9 M.DDiana I10 E78.5 Z79.82 Office Visit 05/15/2016 8:43a [facility] Shayla Jang, 76514 G45.9 Assoc,pc [employer] Hospitalists E03.9 Office Visit 05/14/2016 1:29p [facility] [place] [place], 06180 I63.9 M.D. I10 E78.5 Z79.82 Office Visit 05/13/2016 8:42a [facility] Isiah Zimmerman M.D. 79349 G45.9 Hospitalists E03.9 Office Visit 03/20/2016 4:00p [facility] Ria Brothers M.D. 56471 R07.9 [facility] I10 D64.9 E03.9 Office Visit 12/07/2015 2:00p [facility] Ria Brothers M.D. 98894 R07.9 [facility] M79.621 R06.02 Office Visit 05/30/2015 10:30a [facility] Gui Rich, 18705 350.1 Services Of [facility] Marycarmen.Michael 724.2 781.2 Office Visit 04/11/2014 11:45a [facility] Gui Rich 32162 350.1 Services Of [employer] Marycarmen.Michael Office Visit 04/12/2013 11:45a [facility] Gui Rich 31299 350.1 Services Of [facility] M.Michael Office Visit 07/14/2012 11:45a [facility] Gui Rich, 90642 350.1 Services Of [facility] Marycarmen.Michael 354.0 785.9 Plan of Care 01/22/2018 - Ria Brothers M.D.I63.9 Cerebral infarction, unspecifiedComments: The heart monitor did not show any rhythm problems other than the early beats.Follow up:6 month OV with Qi Ward [employer] Annual OV with MD with ECG.Recommendations:Continue Atenalol.I49.1 Atrial premature rhkcvfhnsfulwgR64.2 Mixed hyperlipidemia
[2018-02-15 08:12] VITALS: BP 139/73
--- NOTE | 2018-02-15 08:57 | RAD ---
HISTORY: Neck pain, trauma COMPARISONS: None TECHNIQUE: Multiple contiguous axial CT scans were obtained of the cervical spine without intravenous contrast, with coronal and sagittal multiplanar reformations. FINDINGS: BRAIN: The visualized brain is unremarkable CENTRAL CANAL: Evaluation of the central canal is limited on CT technique; however, there is no obvious canalicular mass or epidural hemorrhage. ALIGNMENT: There is straightening of the cervical lordosis. VERTEBRAL BODIES: There is multilevel anterolateral marginal osteophyte formation. There is no displaced fracture. JOINTS: There is uncovertebral and facet osteoarthritis. There is osteoarthritis of the atlantoaxial articulation. MUSCULATURE: Unremarkable INTERVERTEBRAL DISCS: There is diffuse loss of intervertebral disc height. AXIAL IMAGES: C2-C3: There is no osseous neural foraminal narrowing or central canal stenosis. C3-C4: There is bilateral uncovertebral and facet hypertrophy. There is mild bilateral neural foraminal narrowing. There is no osseous central canal stenosis. C4-C5: There is broad-based disc osteophyte complex with bilateral uncovertebral facet hypertrophy. There is moderate bilateral neural foraminal narrowing. There is no osseous central canal stenosis. C5-C6: There is bilateral uncovertebral and facet hypertrophy. There is severe left and moderate right neural foraminal narrowing. There is no osseous central canal stenosis. C6-C7: There is no osseous neural foraminal narrowing or central canal stenosis. C7-T1: There is no osseous neural foraminal narrowing or central canal stenosis. SOFT TISSUES: There is calcification of the carotid bifurcations bilaterally.. The prevertebral fat stripe is preserved. OTHER: None. IMPRESSION: 1. STRAIGHTENING OF THE CERVICAL LORDOSIS. 2. DEGENERATIVE DISC DISEASE AND OSTEOARTHRITIS. 3. ATHEROSCLEROSIS. 4. NO ACUTE OSSEOUS INJURY TO THE SPINE.
--- NOTE | 2018-02-15 09:00 | RAD ---
Indication: Back pain. CT of the brain was performed without IV contrast. Ventricular structures are midline. No midline shift is noted. The extra-axial spaces are unremarkable. Central and cortical atrophy is noted. There is no evidence of intracranial mass or hemorrhage. No other high or low density lesions are identified. When compared to previous exam of December 14, 2017 no significant change is noted. IMPRESSION: Central and cortical atrophy without evidence of intracranial mass or hemorrhage.
--- NOTE | 2018-02-15 16:27 | UC ---
Hesham Hassan Angela, scribed for Mahamed Armendariz MD on 02/15/18 at 0822 . Head Injury HPI - HPI Summary HPI Summary: This pt is a 83 y/o female presenting to [facility] c/o head pain s/p fall and head strike today. Pt reports she woke up this morning to go to the bathroom. She states she lost her balance and she fell forward. Pt notes positive head strike , she struck her forehead. No LOC. Pt denies dizziness, chest pain, palpitations , nausea, vomiting. Pt reports some blurred vision for more than [address] Alvarez dilated her pupil on the left. PMHx includes atrial fibrillation. She is on anticoagulants, Plavix. - History Of Current Complaint Chief Complaint: UCHeadInjury Stated Complaint: HEAD INJURY Time Seen by Provider: 02/15/18 08:14 Hx Obtained From: Patient Hx Last Menstrual Period: post menopause Onset/Duration: Sudden Onset, Still Present Severity Initially: Moderate Pain Intensity: 6 Pain Scale Used: 0-10 Numeric Aggravating Factor(s): Nothing Alleviating Factor(s): Nothing Associated Signs And Symptoms: Negative: LOC (Time In Secs./Mins/Hrs), Memory Loss, Nausea, Vomiting - Allergies/Home Medications Allergies/Adverse Reactions: Allergies Allergy/AdvReac Type Severity Reaction Status Date / Time nabumetone [From Relafen] Allergy Swelling Verified 02/15/18 08:22 Of Face,Lips,& Throat Sulfa (Sulfonamide Allergy Rash Verified 02/15/18 08:22 Antibiotics) PMH/Surg Hx/FS Hx/Imm Hx Endocrine History: Hypothyroidism Other Endocrine History: DENIES: diabetes Cardiovascular History: Atrial Fibrillation Other Cardiovascular History: trigeminal neuralgia Neurological History: CVA - Surgical History Surgical History: Yes Surgery Procedure, Year, and Place: HYSTERECTOMY 1984-APPENDECTOMY AGE 15- DETACHED RETINA-CLEARED BY ORBIT XRAY IN 2003. MEDTRONIC LINQ 11-OK FOR UP TO 3T-PLACED AT [facility] [place]-ALL INFO DOCUTMENTED - Family History Known Family History: Positive: Hypertension, Renal Disease Negative: Respiratory Disease, Seizure Disorder, Other - no breast cancer - Social History Alcohol Use: None Substance Use Type: None Smoking Status (MU): Never Smoked Tobacco Review of Systems Constitutional: Negative Skin: Negative Eyes: Blurred Vision - since 1 week ago ENT: Negative Respiratory: Negative Cardiovascular: Negative Gastrointestinal: Negative Genitourinary: Negative Motor: Negative Neurovascular: Negative Musculoskeletal: Negative Neurological: Headache Psychological: Negative All Other Systems Reviewed And Are Negative: Yes Physical Exam - Summary Physical Exam Summary: VITAL SIGNS: Reviewed. GENERAL: Patient is a well-developed and nourished female who is lying comfortable in the stretcher. Patient is not in any acute respiratory distress. HEAD AND FACE: Normocephalic. Erythematous area on the central forehead. EYES: PERRLA, EOMI x 2. EARS: Hearing grossly intact. MOUTH: Oropharynx within normal limits. NECK: Supple, trachea is midline, no adenopathy, no JVD, no carotid bruit. Some c-spine tenderness. CHEST: Symmetric, no tenderness at palpation LUNGS: Clear to auscultation bilaterally. No wheezing or crackles. CVS: Regular rate and rhythm, S1 and S2 present, no murmurs or gallops appreciated. ABDOMEN: Soft, non-tender. Bowel sounds are normal. No abdominal abnormal pulsations. EXTREMITIES: Full ROM in all major joints, no edema, no cyanosis or clubbing. NEURO: Alert and oriented x 3. No acute neurological deficits. Speech is normal and follows commands. SKIN: Dry and warm Triage Information Reviewed: Yes Vital Signs: Initial Vital Signs Temp 98 F 02/15/18 08:09 Pulse 80 02/15/18 08:09 Resp 15 02/15/18 08:09 BP 139/73 02/15/18 08:09 Pulse Ox 98 02/15/18 08:09 Vital Signs Reviewed: Yes Diagnostics - Laboratory Diagnostic Studies Completed/Ordered: Brain CT, as read by radiologist. IMPRESSION: Central and cortical atrophy without evidence of intracranial mass or hemorrhage. Cervical spine CT, as read by radiologist. IMPRESSION: 1. Straightening of the cervical lordosis. 2. Degenerative disc disease and osteoarthritis. 3. Atherosclerosis. 4. No acute osseous injury to the spine. Dr. Armendariz has reviewed these radiology reports. - EKG Cardiac Rate: NL - at 71 bpm Cardiac Rhythm: Sinus: Normal - EKG at 08:26: No ST elevations. Normal axis Ectopy: PVCs Re-Evaluation - Re-Evaluation First Eval Re-Evaluation Time: 09:03 Comment: I reviewed the CT results with pt and family member. Pt will be discharged home. Head Injury Course/Dx - Course Course Of Treatment: This pt is a 83 y/o female presenting to [facility] c/o head pain s/p fall and head strike today. Pt reports she woke up this morning to go to the bathroom. She states she lost her balance and she fell forward. Pt notes positive head strike, she struck her forehead. No LOC. Pt denies dizziness, chest pain, palpitations, nausea, vomiting. Pt reports some blurred vision for more than [address] Alvarez dilated her pupil on the left. PMHx includes atrial fibrillation. She is on anticoagulants, Plavix. Initially the pt was recommended to go to the emergency room for further assessment. However, she declines at this time. She refuses to go to the ER, she understands the advice but she declines. Brain CT: Central and cortical atrophy without evidence of intracranial mass or hemorrhage. Cervical spine CT: 1. Straightening of the cervical lordosis. 2. Degenerative disc disease and osteoarthritis. 3. Atherosclerosis. 4. No acute osseous injury to the spine. I discussed all the CT findings with the patient and powerhouse helper. Pt was instructed to return to the urgent care or go to ER immediately if any of the symptoms return or worsens. Plan of care was discussed with the patient, and pt understands and agrees. All questions were answered to patient satisfaction. There were no further complaints or concerns. Pt is hemodynamically stable, alert and oriented x3. The patient was found to have increased blood pressure in UC. The patient will follow up with PCP for better control of BP. - Differential Dx/Diagnosis Provider Diagnoses: Head contusion. Fall Discharge - Sign-Out/Discharge Documenting (check all that apply): Discharge/Admit/Transfer - Discharge - Discharge Plan Condition: Stable Disposition: HOME Patient Education Materials: Fall Prevention for Older Adults (ED), Contusion in Adults (ED) Referrals: Roxanen Corrales [Primary Care Provider] - Additional Instructions: FOLLOW UP WITH YOUR PRIMARY CARE PROVIDER WITHIN ONE WEEK FOR HIGH BLOOD PRESSURE NOTED TODAY. RETURN TO URGENT CARE OR THE ED FOR ANY WORSENING OR NEW SYMPTOMS. The documentation as recorded by the Hesham short Angela accurately reflects the service I personally performed and the decisions made by me, Mahamed Armendariz MD.
== END 2018-02-15 09:06 | disposition home or self-care (01) ==
LOC: UCEAST 07:57
DX: S00.83XA Contusion of other part of head, initial encounter (principal); W18.00XA Striking against unspecified object with subsequent fall, initial encounter; Y93.89 Activity, other specified; Y92.009 Unspecified place in unspecified non-institutional (private) residence as the place of occurrence of the external cause; M50.30 Other cervical disc degeneration, unspecified cervical region; M47.812 Spondylosis without myelopathy or radiculopathy, cervical region; I70.90 Unspecified atherosclerosis; H53.8 Other visual disturbances; E03.9 Hypothyroidism, unspecified; I48.91 Unspecified atrial fibrillation; Z79.01 Long term (current) use of anticoagulants; G50.0 Trigeminal neuralgia; Z88.2 Allergy status to sulfonamides; Z88.8 Allergy status to other drugs, medicaments and biological substances
CPT/HCPCS: 70450; 72125; 93005; 99212; G0463

== ENCOUNTER 2018-11-20 12:39 | Inpatient (IN) | payer MEDICARE, BC, OTHER ==
--- NOTE | 2018-11-20 13:21 | ED ---
Complex/Multi-Sys Presentation - HPI Summary HPI Summary: 83 year old F presenting to [facility] from [facility] office after being seen by Kati ELAINE, accompanied by son Ronaldo with concern for dehydration, GI bleed or pneumonia after persistent copious vomiting that is thick and brown and copious diarrhea and persistent cough. Pt has chief complaint of productive cough since 2 days ago. This cough was preceded by URI/ bronchitis a few weeks ago that was not treated with antibiotics and now has worsened. The patient rates chest pain with cough 5/10 in severity. Symptoms aggravated by nothing. Symptoms alleviated by nothing. Patient reports vomiting x2 (PA reported more), diarrhea x10. Patient additionally notes chest pain radiating to her back and abdominal pain. Son reports decreased appetite, and altered mental status (more irritable than usual in the last week). Pt was seen if [facility] last week and had some edema and BNP was 195. Pt has PMH mitral valve prolapse, kidney disease and kidney stones and trigeminal neuralgia. Per ARGENTINA Welch patient takes Plavix for "conductive heart disorder", also Synthroid, atenolol, tegretol (for trigeminal neuralgia), atorvastatin and lexapro. Last week with edema noted in the office pt was given lasix, but she is not taking that. Patient is not taking an antibiotic currently. Vital signs while in room: HR 81 bpm, BP 149/81. - History Of Current Complaint Chief Complaint: EDNauseaVomitDiarrh Time Seen by Provider: 11/20/18 13:13 Hx Obtained From: Patient, Family/Cell Coverer - Son, Other: - ARGENTINA Welch, at [facility] Onset/Duration: Lasting Days - 2, Still Present Timing: Constant Severity Currently: Severe Severity Initially: Moderate Location: Pain At: - chest with coughing, Radiates To: - back Character: Dull Aggravating Factor(s): Nothing Alleviating Factor(s): Nothing Associated Signs And Symptoms: Positive: Weakness, Cough, Nausea, Vomiting, Diarrhea, Abdominal Pain, Back Pain, Decreased Oral Intake, Anticoagulation Therapy - plavix, Other - vomiting x2, diarrhea x10, chest pain radiating to her back, abdominal pain, decreased appetite Related History: Recent Illness - URI/bronchitis - Allergies/Home Medications Allergies/Adverse Reactions: Allergies Allergy/AdvReac Type Severity Reaction Status Date / Time nabumetone [From Relafen] Allergy Swelling Verified 02/15/18 08:22 Of Face,Lips,& Throat Sulfa (Sulfonamide Allergy Rash Verified 02/15/18 08:22 Antibiotics) Home Medications: Home Medications Acetaminophen TAB* [Tylenol TAB*] 650 mg PO Q4H PRN 11/20/18 [History Confirmed 11/20/18] Furosemide TAB* [Lasix TAB*] 20 mg PO DAILY 11/20/18 [History Confirmed 11/20/18 ] raNITIdine HCl [Acid Chef & Owner] 150 mg PO BID 11/20/18 [History Confirmed 11/20/18 ] PMH/Surg Hx/FS Hx/Imm Hx Previously Healthy: No Endocrine/Hematology History: Reports: Hx Thyroid Disease, Hx Anemia Denies: Hx Diabetes Cardiovascular History: Reports: Hx Hypertension, Hx Valvular Heart Disease - MVP Denies: Hx Pacemaker/ICD GI History: Reports: Hx Gastroesophageal Reflux Disease History: Reports: Hx Kidney Stones, Hx Renal Disease Musculoskeletal History: Reports: Hx Arthritis Sensory History: Reports: Hx Cataracts, Hx Contacts or Glasses, Hx Eye Injury - Retina detachment on left eye, Hx Hearing Aid Opthamlomology History: Reports: Hx Cataracts, Hx Contacts or Glasses, Hx Eye Injury - Retina detachment on left eye EENT History: Reports: Hx Hearing Aid Neurological History: Reports: Other Neuro Impairments/Disorders - Pt states tegretol used for right cheek, trigeminal neuralgia Psychiatric History: Reports: Hx Anxiety, Hx Depression, Hx Panic Disorder - Cancer History Hx Chemotherapy: No Hx Radiation Therapy: No - Surgical History Surgery Procedure, Year, and Place: HYSTERECTOMY 1984-APPENDECTOMY AGE 15- DETACHED RETINA-CLEARED BY ORBIT XRAY IN 2003. MEDTRONIC LINQ 11-OK FOR UP TO 3T-PLACED AT [facility] [place] 06/2016-ALL INFO DOCUMENTED - Immunization History Date of Tetanus Vaccine: 2012 Infectious Disease History: No Infectious Disease History: Denies: Hx of Known/Suspected MRSA, Traveled Outside the [place] in Last 30 Days - Family History Known Family History: Positive: Hypertension, Renal Disease, Other - no breast cancer Negative: Respiratory Disease, Seizure Disorder - Social History Alcohol Use: None Hx Substance Use: No Substance Use Type: Reports: None Hx Tobacco Use: No Smoking Status (MU): Never Smoked Tobacco Review of Systems Constitutional: Negative Positive: Chest Pain - radiating to back Positive: Cough - productive Positive: Abdominal Pain, Vomiting - x2, Diarrhea - x10 Positive: no symptoms reported Musculoskeletal: Negative Skin: Negative Neurological: Other - change in mental status per son, more irritable x 1 week Positive: Weakness - generalized Psychological: Normal - calm, cooperative in ED All Other Systems Reviewed And Are Negative: Yes Physical Exam - Summary Physical Exam Summary: Appearance: ill-appearing, moderate pain distress, well-nourished Skin: Warm, color reflects adequate perfusion, dry Head: Normal Head/Face inspection, atraumatic Eyes: Conjunctiva clear ENT: Normal inspection Neck: Supple, no nodes, no JVD Respiratory: inspiratory and expiratory wheezes, rhonchi at the left base Cardio: RRR, No murmur, pulses normal, brisk capillary refill Abdomen: Soft, nontender, no masses, nondistended, no guarding, no rebound, no CVAT Bowel sounds: Present Musculoskeletal: Strength Intact/ROM intact, no calf tenderness, no edema. Psychological: calm, cooperative, mild confusion Neuro: Alert, muscle tone normal, no focal deficit GCS: 14 Triage Information Reviewed: Yes Vital Signs On Initial Exam: Initial Vitals Temp Pulse Resp BP Pulse Ox 100.0 F 81 16 149/81 96 11/20/18 13:05 11/20/18 13:05 11/20/18 13:05 11/20/18 13:05 11/20/18 13:05 Vital Signs Reviewed: Yes Diagnostics - Vital Signs Vital Signs Temp Pulse Resp BP Pulse Ox 11/20/18 13:05 100.0 F 81 16 149/81 96 - Laboratory Result Diagrams: 11/21/18 07:01 11/21/18 07:01 Lab Statement: Any lab studies that have been ordered have been reviewed, and results considered in the medical decision making process. - Radiology CXR Radiology Interpretation Completed By: Radiologist Summary of Radiographic Findings: NO ACTIVE CARDIOPULMONARY DISEASE. ED physician has reviewed this report. - CT Brain CT Interpretation Completed By: Radiologist Summary of CT Findings: NO ACUTE INTRACRANIAL PATHOLOGY. CHRONIC SMALL VESSEL ISCHEMIC CHANGE. MODERATE SINUS MUCOSAL INFLAMMATORY DISEASE, WITH AIR-FLUID LEVELS IN THE MAXILLARY SINUSES AND SPHENOID SINUS . IN THE CORRECT CLINICAL SETTING, THIS MAY REPRESENT ACUTE SINUSITIS. ED physician has reviewed this report. - EKG 1313 Cardiac Rate: NL - BPM EKG Rhythm: Sinus Rhythm ST Segment: Non-Specific Ectopy: None, PACs - 1 EKG Comparison: No Significant Change - From 02/15/18 Summary of EKG Findings: An EKG at 13:13 reveals nml AV/IV CT, nml QTc, and nml axis. No acute changes. Re-Evaluation - Re-Evaluation First Eval Re-Evaluation Time: 16:16 Change: Improved Comment: She is still wheezing on right but increased airation. She has a headache and requests Tylenol. Complex Multi-Symp Course/Dx Course Of Treatment: Nuses notes reviewed. Pt was discussed with ARGENTINA Welch prior to admission. Patient medications reviewed this visit. Allergies noted. High blood pressure noted. In ED course, patient given Zithromax, Rocephin, Duoneb, and IV fluids for possible UTI and possible community acquired pneumonia. Labs showed normal WBC count, elevated CRP, minimally elevated BNP, elevated TSH, low T3,mild anemia, normal lactic acid x 2, hypocalcemia. Influenza tests were negative. Urinalysis consistent with UTI. EKG showed SR with no acute changes. CT Brain done for altered mental status noted by son and ARGENTINA showed no acute intracranial abnormality,and CXR showed no acute processes (despite clinically appearing to have pneumonia with inspiratory and expiratory wheezes and rhonchi left base, temp 100 and preceding URI). Discussed with Dr. Betancourt, hospitalist, at 16:04, who agrees to admit patient. The Hospitalist will admit the patient. - Diagnoses Differential Diagnoses/HQI/PQRI: Metabolic Abnormality, Sepsis, Urinary Tract Infection, Other - dehydration Provider Diagnoses: Pneumonia, Urinary tract infection, Bronchospasm, Vomiting and diarrhea - Physician Notifications Discussed Care Of Patient With: [place] Betancourt Time Discussed With Above Provider: 16:04 Instructed by Provider To: Other - Dr. Betancourt, hospitalist, agrees to admit patient. Discharge - Sign-Out/Discharge Documenting (check all that apply): Patient Departure - Admit Patient Received Moderate/Deep Sedation with Procedure: No - Discharge Plan Condition: Improved Disposition: ADMITTED TO [facility] - Billing Disposition and Condition Condition: IMPROVED Disposition: Admitted to [facility] - Attestation Statements Document Initiated by Scribe: Yes Documenting Scribe: Krystal Romeo Provider For Whom Scribe is Documenting (Include Credential): Marilyn Shelton MD Scribe Attestation: I, Krystal Romeo, scribed for Marilyn Shelton MD on 11/24/18 at 0002. Scribe Documentation Reviewed: Yes Provider Attestation: The documentation as recorded by the scribe, Krystal Romeo accurately reflects the service I personally performed and the decisions made by me, Marilyn Shelton MD Status of Scribe Document: Viewed
[2018-11-20] MEDS ORDERED: NS 0.9% 1000 ML** 1,000 ML IV.FLUID IV ONE (13:26)
[2018-11-20] MEDS ORDERED: cefTRIAXone(*) 1 GM in NS 0.9% 50 ML* 50 ML IVPB ONE (13:32)
[2018-11-20] MEDS ORDERED: ED Azithromycn 500 mg/250 ml 500 MG/250 ML PREMIX.SET IVPB ONE ×2 (13:32→15:06)
[2018-11-20 14:56] LABS: Hematocrit 32 % (35-47); Hemoglobin 10.5 g/dl (12.0-16.0); Mean Corpuscular HGB Conc 33 g/dl (31-36); Mean Corpuscular Hemoglobin 29 pg (27-31); Mean Corpuscular Volume 88 fL (80-97); Mean Platelet Volume 6.6 fL (7.4-10.4); Platelet Count 312 10^3/ul (150-450); Red Blood Count 3.61 10^6/ul (4.00-5.40); Red Cell Distribution Width 25 % (10.5-15); White Blood Count 8.8 10^3/ul (3.5-10.8)
[2018-11-20] MEDS ORDERED: Azithromycin IV(*) 500 MG in NS 0.9% 250 ML* 250 ML IVPB ONE (15:00)
[2018-11-20 15:03] LABS: Activated Partial Thrombo Time 30.1 seconds (26.0-36.3); INR 0.95 (0.77-1.02)
[2018-11-20 15:19] LABS: Albumin 3.9 g/dL (3.2-5.2); Albumin/Globulin Ratio 1.3 (1-3); C Reactive Protein 189.34 mg/L (<8.01); EGFR Non-African American 48.7 (>60); Potassium 3.6 mmol/L (3.5-5.0); Total Bilirubin 0.3 mg/dL (0.2-1.0); Total Protein 6.9 g/dL (6.4-8.9)
[2018-11-20 15:21] LABS: Troponin I 0.01 ng/mL (<0.04)
[2018-11-20 15:23] LABS: ABS Basophils 0 10^3/ul (0-0.2); ABS Eosinophils 0.1 10^3/ul (0-0.6); ABS Lymphocytes 1.3 10^3/ul (1.0-4.8); ABS Neutrophils 6.3 10^3/ul (1.5-7.7); ABS Nucleated RBC 0 10^3/ul; Eosinophil % 1.6 %; Lymphocyte % 15.1 %; Nucleated Red Blood Cells % 0
[2018-11-20] MEDS ORDERED: Albuterol/Ipratropium NEB.SOL* Albuterol 2.5 MG/Ipratropium 0.5 MG 3 ML INH ONE (15:50)
[2018-11-20 16:03] LABS: Influenza A Molecular NEGATIVE (Negative); Influenza B Molecular NEGATIVE (Negative)
[2018-11-20 16:13] LABS: Urine Appearance Cloudy; Urine Bacteria 1+ (Absent); Urine Bilirubin Negative (Negative); Urine Blood 2+ (Negative); Urine Color Yellow; Urine Glucose Negative (Negative); Urine Ketones Trace (Negative); Urine Nitrite Negative (Negative); Urine Protein Negative (Negative); Urine Red Blood Cell Trace(0-2/hpf) (Absent); Urine Specific Gravity 1.008 (1.010-1.030); Urine Squamous Epithelial Cell Present (Absent); Urine Urobilinogen Negative (Negative); Urine White Blood Cell 2+(11-20/hpf) (Absent)
[2018-11-20] MEDS ORDERED: Acetaminophen TAB* 325 MG PO ONE (16:19)
[2018-11-20 16:55] LABS: TSH (Thyroid Stimulating Horm) 9.42 mcIU/mL (0.34-5.60)
[2018-11-20 16:57] LABS: Free T3 2.1 pg/mL (2.5-3.9)
[2018-11-20 16:58] LABS: Free T4 0.67 ng/dL (0.61-1.12)
[2018-11-20] MEDS ORDERED: NS 0.9% 1000 ML** 1,000 ML IV SCH (18:45)
[2018-11-20] MEDS: Heparin VIAL(*) 5000 UNITS/ML VIAL (FIVE THOUSAND) SUBCUT SCH (21:34)
[2018-11-20] MEDS: Atenolol TAB* 50 MG PO SCH (23:25)
[2018-11-20] MEDS: clonazePAM TAB(*) 1 MG PO SCH (23:25)
[2018-11-20] MEDS: carBAMazepine TAB(*) 200 MG PO SCH (23:25)
[2018-11-20] MEDS: Atorvastatin* 20 MG TAB PO SCH (23:25)
--- NOTE | 2018-11-21 00:34 | HP ---
CC: ARGENTINA Amador * HISTORY AND PHYSICAL: DATE OF ADMISSION: 11/20/18 PRIMARY CARE PROVIDER: ARGENTINA Amador. ATTENDING PHYSICIAN: Dr. Lev Rondon * (dictated by Deyanira Landry NP) CHIEF COMPLAINT: Not feeling well for few weeks including nasal congestion, cough and now with vomiting and diarrhea and concerns for a dehydration. HISTORY OF PRESENT ILLNESS: Ms. Vergara is an 83-year-old female with past medical history significant for hypothyroidism, anemia, hypertension, GERD, arthritis, anxiety, depression who states that few weeks ago, she initially began not feeling well with nasal congestion, mucus production, and hoarseness. She was seen by her primary care provider who diagnosed her with a viral urinary tract infection and recommended supportive care. A few nights after the diagnosis, she took Mucinex and said this made her sick and her primary also recommended saline nasal spray, but she had not been using that. She had been using acetaminophen and a vaporizer. She states she had been finally feeling better and then last night she developed thick clear mucus and return of her cough having 5/10 back and abdominal pain. She had 3 episodes of dark emesis that she described as dark mucus. She also reported some loose stools. She denied any fevers, reported intermittent chills. She had had some chest discomfort earlier in the week at rest. She is unsure what day that was. She reports that her cough has resolved today and reported few loose stools today and reports some nausea. When her symptoms were started she reported some facial discomfort has resolved. She reports frequent urination at baseline with occasional urinary incontinence. Denies dysuria. She denies any joint pain, muscle pain. She reports having a poor appetite, but reports that this happens occasionally and resolves on its own. Due to concerns when they called her PCP for dehydration, she came to the emergency room for further evaluation. While in the emergency room, she had labs showing no leukocytosis. She had a low- grade fever of 100.0, slightly elevated creatinine, slightly anemic, but near her baseline, significantly elevated CRP of 189.34, BNP 167, TSH 9.42. She had a urinalysis significant that appears to be a UTI. Influenza A and B negative. She had an EKG showing sinus rhythm. The hospitalists was asked to evaluate the patient for admission. PAST MEDICAL HISTORY: 1. Hypothyroidism. 2. Anemia. 3. Hypertension. 4. GERD. 5. Arthritis. 6. Anxiety, depression. 7. Trigeminal neuralgia. 8. History of ischemic stroke. PAST SURGICAL HISTORY: 1. Status post repair of a left retinal detachment. 2. Status post hysterectomy. 3. Status post appendectomy. HOME MEDICATIONS: Include: 1. Clonazepam 1 mg oral twice daily. 2. Refresh 1 drop to both eyes every 2 hours as needed for dry eye. 3. Ranitidine 150 mg oral twice daily. 4. Furosemide 20 mg oral daily. 5. Tegretol 200 mg oral twice daily. 6. Levothyroxine 75 mcg oral daily. 7. Plavix 75 mg oral daily. 8. Acetaminophen 650 oral every 4 hours as needed for fever or pain. 9. Atorvastatin 20 mg oral every evening. 10. Atenolol 50 mg oral twice daily. ALLERGIES: RELAFEN causes facial, lip, and throat swelling. SULFA causes a rash. FAMILY HISTORY: She denies family history of coronary artery disease and diabetes. Her brother with a history of lung cancer and her brother with a history of liver cancer. SOCIAL HISTORY: She denies tobacco, alcohol, or recreational drug use. Her , Neeraj Vergara, will be her surrogate decision maker in the event she is unable to make decisions for herself. REVIEW OF SYSTEMS: I performed an 11-point review of systems. All the pertinent positives and negatives are mentioned in the history of present illness. Remaining review of systems are negative. PHYSICAL EXAMINATION GENERAL APPEARANCE: She is alert, pleasant, and appears to be in no acute distress. VITAL SIGNS: Temperature 100.0, heart rate 81, respiratory rate 16, O2 sat 96% on room air, blood pressure 149/81. HEENT: Normocephalic, atraumatic. Pupils are equal and reactive to light. Extraocular movements are intact. No tenderness with palpation of face. NECK: She is able to bend her neck. There is no lymphadenopathy noted. RESPIRATORY: Scattered rhonchi, bilateral. CARDIOVASCULAR: Regular rate and rhythm. S1 and S2 present. No murmurs, rubs , or gallops heard. ABDOMEN: Soft, nontender, nondistended. There are hypoactive bowel sounds x4. EXTREMITIES: No lower extremity edema bilateral. DP and PT pulses are 1+ and symmetric. MUSCULOSKELETAL: There is no clubbing or cyanosis noted. The patient exhibits good strength in all extremities. She has full range of motion of all joints. There is no tenderness with palpation. No redness or swelling of any joints. She is able to touch her chin to chest. NEUROLOGIC: Alert and oriented. PSYCHOLOGICAL: Calm and cooperative. SKIN: There are no rashes or abnormalities seen on the exposed skin. DIAGNOSTIC STUDIES/LAB DATA: Sodium 134, potassium 3.6, chloride 100, CO2 26, BUN 16, creatinine 1.07. White blood cell count 8.8, hemoglobin 10.5, hematocrit 32, platelet count 312. CRP 189.34, BNP 167. Influenza A and B is negative. Urinalysis significant for specific gravity 1.008, trace ketones, blood 2+, 2+ leukocyte esterase, 2+ wbc's, squamous epithelial cells present and bacteria 1+. EKG shows a sinus rhythm, rate of 85. There are no acute signs of ischemia. The EKG is similar to previous EKG from 02/15/18. Chest x-ray from today. Radiologist's impression: No active cardiopulmonary disease. Brain CT from today. Radiologist's impression: No acute intracranial pathology. Chronic small vessel ischemic changes. Moderate sinus mucosal inflammatory disease with air fluid levels in the maxillary sinus and sphenoid sinus. In a correct clinical setting, this may represent acute sinusitis. IMPRESSION: Ms. Vergara is an 83-year-old female with past medical history significant for hypothyroidism, anemia, hypertension, gastroesophageal reflux disease, arthritis, anxiety, depression, trigeminal neuralgia and history of ischemic stroke, who presents to the emergency room with complaints of vomiting , recent upper respiratory infection, chest pain this week and thick mucus production. She will be admitted as an inpatient for left lower lobe pneumonia , possibly urinary tract infection. ASSESSMENT/PLAN: 1. Left lower lobe pneumonia. She appears to have an area of consolidation in her left lower lobe. I suspect this represents pneumonia. She has a low-grade fever. Currently has no leukocytosis, but significant elevation in her CRP. She is influenza A and B negative. She received a dose of azithromycin and ceftriaxone in the ER. I will continue this. We will check urine antigens for legionella and S. pneumoniae. Also, get a sputum sample if she is able to produce one. Additionally, blood cultures have been recollected and are pending. I do not hear significant wheezing. I do not feel that she needs steroids at this time. 2. Suspected urinary tract infection. Already going to cover her with ceftriaxone for her pneumonia. She should be placed on ceftriaxone. She denies any urinary tract infections at this time. 3. Significantly elevated C-reactive protein. Again, I suspect this is in the setting of pneumonia and possible urinary tract infection. She has no pain or stiffness in any of her joints. No redness or swelling. She is able to move all joints including her shoulders, elbows, wrist, hips, knees, and ankles. She has no meningeal signs. She is able to touch her chin to her chest without any difficulty. 3. Reported altered mental status. At this point, there is no family at bedside. I am unclear if she still has some altered mental status. She had a negative brain CT. We will give her supportive care. 4. Hypertension. I am going to continue her home atenolol and hold her Lasix as I gave her IV fluids overnight. This can be resumed when she no longer needs IV fluids. 5. Trigeminal neuralgia. We will continue her on her Tegretol. She is noted to have mild hyponatremia. This could be in the setting of her Tegretol, just monitor this closely while she is here. 6. Hypothyroidism. Her TSH is elevated. It is unclear off of her medical list if she has recently had her Synthroid adjusted. I would like to get primary care medication list just to make sure that her levothyroxine has not recently been adjusted. If it has, I recommend considering increasing her levothyroxine, her T4 is within normal range. 7. Anemia. She appears to be near her baseline. 8. Irritable bowel syndrome. Continue supportive care. 9. Anxiety, depression. Continue her on her clonazepam. 10. Gastroesophageal reflux disease. Continue ranitidine or hospital auto substitute. 11. Hypertension. We will continue her on atenolol. 12. Hyperlipidemia. Continue Lipitor. 13. History of cerebrovascular accident. We will continue her on her statin and Plavix. 14. Fluids, electrolytes, and nutrition: Be on a heart healthy diet. 15. Code status: Full code. 16. DVT prophylaxis. She is at high risk, will be on subcu heparin. 17. Disposition: Inpatient. TIME SPENT: Time for this admission was approximately 60 minutes, greater than half of that was spent with the patient discussing medications, past medical history, the events leading up to her arrival today, and performing her physical examination. Case has been reviewed with the attending, Dr. Rondon, who agrees with the plan of care. DEYANIRA LANDRY, ENVIRONMENTAL INTERN [id number]/CPS #: [id number] [place]
[2018-11-21] MEDS ORDERED: Levothyroxine TAB* 75 MCG TAB PO SCH (06:00)
[2018-11-21] MEDS: Heparin VIAL(*) 5000 UNITS/ML VIAL (FIVE THOUSAND) SUBCUT SCH ×3 (06:11→20:26)
[2018-11-21 07:22] LABS: Hematocrit 27 % (35-47); Mean Corpuscular HGB Conc 33 g/dl (31-36); Mean Corpuscular Hemoglobin 29 pg (27-31); Mean Corpuscular Volume 88 fL (80-97); Mean Platelet Volume 6.7 fL (7.4-10.4); Platelet Count 280 10^3/ul (150-450); Red Blood Count 3.08 10^6/ul (4.00-5.40); Red Cell Distribution Width 25 % (10.5-15)
[2018-11-21 07:31] LABS: BUN/Creatinine Ratio 10.9 (8-20); Calcium 8.1 mg/dL (8.6-10.3); EGFR African American 70.2 (>60); Potassium 3.6 mmol/L (3.5-5.0)
[2018-11-21 07:46] LABS: ABS Basophils 0 10^3/ul (0-0.2); ABS Eosinophils 0.1 10^3/ul (0-0.6); ABS Lymphocytes 1.1 10^3/ul (1.0-4.8); ABS Monocytes 0.6 10^3/ul (0-0.8); ABS Neutrophils 5.2 10^3/ul (1.5-7.7); ABS Nucleated RBC 0 10^3/ul; Lymphocyte % 16.1 %; Nucleated Red Blood Cells % 0
[2018-11-21] MEDS: Famotidine TAB* 20 MG PO SCH (09:51)
[2018-11-21] MEDS: clonazePAM TAB(*) 1 MG PO SCH ×2 (09:52→20:25)
[2018-11-21] MEDS: Atenolol TAB* 50 MG PO SCH ×2 (09:52→20:26)
[2018-11-21] MEDS: Clopidogrel TAB* 75 MG PO SCH (09:52)
[2018-11-21] MEDS: carBAMazepine TAB(*) 200 MG PO SCH ×2 (09:52→20:26)
[2018-11-21] MEDS: cefTRIAXone(*) 1 GM in NS 0.9% 50 ML* 50 ML IVPB SCH (13:30)
[2018-11-21] MEDS: Azithromycin IV(*) 500 MG in NS 0.9% 250 ML* 250 ML IVPB SCH (14:16)
[2018-11-21] MEDS ORDERED: Furosemide TAB* 20 MG PO ONE (16:05)
--- NOTE | 2018-11-21 16:07 | PN ---
Subjective Interval History: afebrile, no acute events still congested. yellow brown productive cough. no SOB some abdominal discomfort from lower left to center but sometimes gets with her IBS and/or "gas" pains. was urinating a lot. expiratory wheeze relates nausea reaction to most oral antibiotics. Son Prateek expressed concerns that she is very anxious and incontinent or urine here. Objective Active Medications: Acetaminophen (Tylenol Tab*) 650 mg PO Q4H PRN PRN Reason: FEVER/PAIN Atenolol (Tenormin Tab*) 50 mg PO BID [facility] Last Admin: 11/21/18 09:52 Dose: 50 mg Atorvastatin Calcium (Lipitor*) 20 mg PO QPM [facility] Last Admin: 11/20/18 23:25 Dose: 20 mg Carbamazepine (Tegretol Tab(*)) 200 mg PO BID [facility] Last Admin: 11/21/18 09:52 Dose: 200 mg Clonazepam (Klonopin Tab(*)) 1 mg PO BID [facility] Last Admin: 11/21/18 09:52 Dose: 1 mg Clopidogrel Bisulfate (Plavix Tab*) 75 mg PO DAILY [facility] Last Admin: 11/21/18 09:52 Dose: 75 mg Famotidine (Pepcid Tab*) 20 mg PO DAILY [facility]; Protocol Last Admin: 11/21/18 09:51 Dose: 20 mg Heparin Sodium (Porcine) (Heparin Vial(*)) 5,000 units SUBCUT Q8HR [facility] Last Admin: 11/21/18 14:16 Dose: 5,000 units Ceftriaxone Sodium 1 gm/ (Sodium Chloride) 50 mls @ 200 mls/hr IVPB Q24H [facility] Last Admin: 11/21/18 13:30 Dose: 200 mls/hr Azithromycin 500 mg/ Sodium (Chloride) 250 mls @ 250 mls/hr IVPB Q24H [facility] Last Admin: 11/21/18 14:16 Dose: 250 mls/hr Levothyroxine Sodium (Synthroid Tab*) 82.5 mcg PO DAILY@0600 [facility] Vital Signs - 8 hr 11/21/18 11/21/18 11/21/18 09:52 10:00 11:19 Temperature 98.0 F Pulse Rate 85 Respiratory 18 18 16 Rate Blood Pressure 153/66 (mmHg) O2 Sat by Pulse 99 97 Oximetry Oxygen Devices in Use Now: Nasal Cannula Appearance: NAD. Eyes: No Scleral Icterus Ears/Nose/Mouth/Throat: NL Teeth, Lips, Gums Neck: NL Appearance and Movements; NL JVP, Trachea Midline Respiratory: Symmetrical Chest Expansion and Respiratory Effort, Clear to Auscultation Cardiovascular: NL Sounds; No Murmurs; No JVD, RRR Abdominal: NL Sounds; No Tenderness; No Distention Extremities: - - traced edema b/l lower extremities Skin: No Rash or Ulcers Neurological: Alert and Oriented x 3 Nutrition: Taking PO's Result Diagrams: 11/21/18 07:01 11/21/18 07:01 Additional Lab and Data: Laboratory Results - last 24 hr 11/21/18 11/21/18 07:01 07:01 WBC 7.0 RBC 3.08 L Hgb 9.0 L Hct 27 L MCV 88 MCH 29 MCHC 33 RDW 25 H Plt Count 280 MPV 6.7 L Neut % (Auto) 73.1 Lymph % (Auto) 16.1 [place] % (Auto) 9.1 Eos % (Auto) 1.0 Baso % (Auto) 0.7 Absolute Neuts (auto) 5.2 Absolute Lymphs (auto) 1.1 Absolute Monos (auto) 0.6 Absolute Eos (auto) 0.1 Absolute Basos (auto) 0 Absolute Nucleated RBC 0 Nucleated RBC % 0 Sodium 138 Potassium 3.6 Chloride 107 Carbon Dioxide 25 Anion Gap 6 BUN 10 Creatinine 0.92 Est GFR ( Amer) 70.2 Est GFR (Non-Af Amer) 58.0 BUN/Creatinine Ratio 10.9 Glucose 98 Calcium 8.1 L Microbiology and Other Data: Microbiology 11/20/18 15:33 Blood Venous Aerobic Blood Culture - Preliminary No Growth Day 1 11/20/18 15:33 Blood Venous Anaerobic Blood Culture - Preliminary No Growth Day 1 11/20/18 14:47 Blood Venous Aerobic Blood Culture - Preliminary No Growth Day 1 11/20/18 14:47 Blood Venous Anaerobic Blood Culture - Preliminary No Growth Day 1 11/21/18 09:45 Sputum Expectorated Gram Stain - Final 11/20/18 13:28 Urine Legionella Urinary Antigen - Final Negative Legionella Antigen 11/20/18 13:28 Urine Streptococcus pneumoniae Ag Screen - Final Negative S. pneumo Antigen 11/20/18 15:33 Nasal Influenza Types A,B Antigen - Final Specimen received for Influenza A/B Molecular testing Assess/Plan/Problems-Billing Assessment: 83 yo female PMH severe anxiety, hypothryoidism, IBS, GERD, anemia p/w fever, nasal congestion, urinary incontinence, productive cough, nausea, vomiting and abdominal pain. CFTZ/Azithromycin. Imaging most consistent with acute sinusitis. UTI. - Patient Problems (1) UTI (urinary tract infection) Current Visit: Yes Status: Acute Comment: Continue cftx f/u cultures symptoms of urinary incontience, suprapubic pain UA: LE 2+, 1+ bacteria. (2) Fever Current Visit: Yes Status: Acute Code(s): R50.9 - FEVER, UNSPECIFIED SNOMED Code(s): 246879178 Comment: likely secondary to UTI & acute sinusitis. resolved. (3) Sinusitis Current Visit: Yes Status: Acute Code(s): J32.9 - CHRONIC SINUSITIS, UNSPECIFIED SNOMED Code(s): 29494872 Comment: continue CFTX (4) Abdominal pain Current Visit: Yes Status: Acute Code(s): R10.9 - UNSPECIFIED ABDOMINAL PAIN SNOMED Code(s): 55035064 Comment: likely 2/2 IBS and UTI. nontender today on exam. (5) Anxiety and depression Current Visit: Yes Status: Acute Code(s): F41.9 - ANXIETY DISORDER, UNSPECIFIED; F32.9 - MAJOR DEPRESSIVE DISORDER, SINGLE EPISODE, UNSPECIFIED SNOMED Code(s): 50128182 Comment: on klonopin 1mg BID (6) IBS (irritable bowel syndrome) Current Visit: Yes Status: Acute Status and Disposition: medicine inpatient. PT ordered. likely d/c in next 24-48 hours.
[2018-11-21] MEDS: Acetaminophen TAB* 325 MG PO PRN ×2 (16:19→23:20)
[2018-11-21] MEDS: Atorvastatin* 20 MG TAB PO SCH (17:38)
[2018-11-21] MEDS: Nystatin TOP POWDER* 15 GM BTL TOPICAL SCH (20:26)
[2018-11-21] MEDS: Benzocaine/Menthol LOZ* 1 LOZENGE MT PRN (23:21)
[2018-11-22] MEDS: Heparin VIAL(*) 5000 UNITS/ML VIAL (FIVE THOUSAND) SUBCUT SCH ×3 (05:13→23:17)
[2018-11-22] MEDS: Levothyroxine TAB* 88 MCG TAB PO SCH (05:13)
[2018-11-22] MEDS: GuaiFENesin DM* 5 ML UDC PO PRN ×2 (05:22→23:17)
[2018-11-22] MEDS: Clopidogrel TAB* 75 MG PO SCH (09:22)
[2018-11-22] MEDS: Atenolol TAB* 50 MG PO SCH ×2 (09:22→23:17)
[2018-11-22] MEDS: Furosemide TAB* 20 MG PO SCH (09:22)
[2018-11-22] MEDS: carBAMazepine TAB(*) 200 MG PO SCH ×2 (09:22→23:16)
[2018-11-22] MEDS: Famotidine TAB* 20 MG PO SCH (09:22)
[2018-11-22] MEDS: clonazePAM TAB(*) 1 MG PO SCH ×2 (09:22→23:16)
[2018-11-22] MEDS: Nystatin TOP POWDER* 15 GM BTL TOPICAL SCH ×2 (09:25→23:17)
[2018-11-22] MEDS: Acetaminophen TAB* 325 MG PO PRN ×4 (09:29→23:02)
[2018-11-22] MEDS: cefTRIAXone(*) 1 GM in NS 0.9% 50 ML* 50 ML IVPB SCH (13:00)
[2018-11-22] MEDS: Azithromycin IV(*) 500 MG in NS 0.9% 250 ML* 250 ML IVPB SCH (14:06)
[2018-11-22] MEDS: Atorvastatin* 20 MG TAB PO SCH (17:48)
--- NOTE | 2018-11-22 18:51 | PN ---
Subjective Date of Service: 11/22/18 Interval History: Pt states she had an awful night. PASTRANA especially on top of head 05/14 that was relieved with Tylenol. Coughing productively but turning clearer. Fell at home 1 month ago. Worried about going home and being able to take care of her given his advanced age. States they have VNS already but that they have not been coming since she has been "so sick". Scheduled for physical therapy right across street from her house - at [facility]. Per PT, pt mentioned that she had been in hospital for 2 weeks instead of 2 days. Pt later denied this and was oriented to time on my assessment. Intermittent abdominal pain. Objective Active Medications: Acetaminophen (Tylenol Tab*) 650 mg PO Q4H PRN PRN Reason: FEVER/PAIN Last Admin: 11/22/18 17:47 Dose: 650 mg Atenolol (Tenormin Tab*) 50 mg PO BID [facility] Last Admin: 11/22/18 09:22 Dose: 50 mg Atorvastatin Calcium (Lipitor*) 20 mg PO QPM [facility] Last Admin: 11/22/18 17:48 Dose: 20 mg Carbamazepine (Tegretol Tab(*)) 200 mg PO BID [facility] Last Admin: 11/22/18 09:22 Dose: 200 mg Clonazepam (Klonopin Tab(*)) 1 mg PO BID [facility] Last Admin: 11/22/18 09:22 Dose: 1 mg Clopidogrel Bisulfate (Plavix Tab*) 75 mg PO DAILY [facility] Last Admin: 11/22/18 09:22 Dose: 75 mg Famotidine (Pepcid Tab*) 20 mg PO DAILY [facility]; Protocol Last Admin: 11/22/18 09:22 Dose: 20 mg Furosemide (Lasix Tab*) 20 mg PO DAILY [facility] Last Admin: 11/22/18 09:22 Dose: 20 mg Guaifenesin/Dextromethorphan (Robitussin Dm*) 10 ml PO Q6H PRN PRN Reason: COUGH Last Admin: 11/22/18 05:22 Dose: 10 ml Heparin Sodium (Porcine) (Heparin Vial(*)) 5,000 units SUBCUT Q8HR [facility] Last Admin: 11/22/18 14:06 Dose: 5,000 units Ceftriaxone Sodium 1 gm/ (Sodium Chloride) 50 mls @ 200 mls/hr IVPB Q24H [facility] Last Admin: 11/22/18 13:00 Dose: 200 mls/hr Azithromycin 500 mg/ Sodium (Chloride) 250 mls @ 250 mls/hr IVPB Q24H [facility] Last Admin: 11/22/18 14:06 Dose: 250 mls/hr Levothyroxine Sodium (Synthroid Tab*) 88 mcg PO DAILY@0600 [facility] Last Admin: 11/22/18 05:13 Dose: 88 mcg Nystatin (Nystatin Top Powder*) 1 applic TOPICAL BID [facility] Last Admin: 11/22/18 09:25 Dose: 1 applic Throat Lozenges (Chloraseptic Corina*) 1 corina MT Q6H PRN PRN Reason: SORE THROAT Last Admin: 11/21/18 23:21 Dose: 1 corina Vital Signs - 8 hr 11/22/18 11/22/18 11/22/18 11:02 15:25 17:49 Temperature 98.7 F 97.5 F Pulse Rate 66 75 Respiratory 16 16 16 Rate Blood Pressure 141/64 131/66 (mmHg) O2 Sat by Pulse 98 100 Oximetry Oxygen Devices in Use Now: Nasal Cannula Appearance: NAD Eyes: No Scleral Icterus Ears/Nose/Mouth/Throat: NL Teeth, Lips, Gums Neck: NL Appearance and Movements; NL JVP, Trachea Midline Respiratory: - - rhonchi and referred GI sounds at left lung base Cardiovascular: NL Sounds; No Murmurs; No JVD Abdominal: NL Sounds; No Tenderness; No Distention Extremities: - - trace edema Skin: No Rash or Ulcers Neurological: Alert and Oriented x 3, - - or Nutrition: Taking PO's Result Diagrams: 11/21/18 07:01 11/21/18 07:01 Microbiology and Other Data: Microbiology 11/20/18 15:33 Blood Venous Aerobic Blood Culture - Preliminary No Growth Day 2 11/20/18 15:33 Blood Venous Anaerobic Blood Culture - Preliminary No Growth Day 2 11/20/18 14:47 Blood Venous Aerobic Blood Culture - Preliminary No Growth Day 2 11/20/18 14:47 Blood Venous Anaerobic Blood Culture - Preliminary No Growth Day 2 11/21/18 09:45 Sputum Expectorated Gram Stain - Final 11/20/18 13:28 Urine Legionella Urinary Antigen - Final Negative Legionella Antigen 11/20/18 13:28 Urine Streptococcus pneumoniae Ag Screen - Final Negative S. pneumo Antigen 11/20/18 15:33 Nasal Influenza Types A,B Antigen - Final Specimen received for Influenza A/B Molecular testing Assess/Plan/Problems-Billing Assessment: 83 yo female PMH severe anxiety, hypothryoidism, IBS, GERD, anemia p/w fever, nasal congestion, urinary incontinence, productive cough, nausea, vomiting and abdominal pain. CFTZ/Azithromycin. Imaging most consistent with acute sinusitis. UTI. - Patient Problems (1) UTI (urinary tract infection) Current Visit: Yes Status: Acute Comment: Continue cftx f/u cultures - called lab they still need another day ?multiple orgs symptoms of urinary incontience, suprapubic pain UA: LE 2+, 1+ bacteria. (2) Fever Current Visit: Yes Status: Acute Code(s): R50.9 - FEVER, UNSPECIFIED SNOMED Code(s): 017424352 Comment: likely secondary to UTI & acute sinusitis. resolved. repeat CXR PA/LAT in AM given intermittent AMS, hypoxia, cough. ?blossomed pna? (3) Sinusitis Current Visit: Yes Status: Acute Code(s): J32.9 - CHRONIC SINUSITIS, UNSPECIFIED SNOMED Code(s): 66869824 Comment: continue CFTX (4) Abdominal pain Current Visit: Yes Status: Acute Code(s): R10.9 - UNSPECIFIED ABDOMINAL PAIN SNOMED Code(s): 08967624 Comment: likely 2/2 IBS and UTI. nontender today on exam. (5) Anxiety and depression Current Visit: Yes Status: Acute Code(s): F41.9 - ANXIETY DISORDER, UNSPECIFIED; F32.9 - MAJOR DEPRESSIVE DISORDER, SINGLE EPISODE, UNSPECIFIED SNOMED Code(s): 66911910 Comment: on klonopin 1mg BID (6) IBS (irritable bowel syndrome) Current Visit: Yes Status: Acute Status and Disposition: medicine inpatient. Likely d/c in next 24 hours. PT rec of no acute needs. VNS ordered (though pt later states already has but not coming??)
[2018-11-22] MEDS: Benzocaine/Menthol LOZ* 1 LOZENGE MT PRN (23:16)
[2018-11-23] MEDS: Heparin VIAL(*) 5000 UNITS/ML VIAL (FIVE THOUSAND) SUBCUT SCH ×2 (05:17→14:06)
[2018-11-23] MEDS: Levothyroxine TAB* 88 MCG TAB PO SCH (05:17)
[2018-11-23] MEDS: Acetaminophen TAB* 325 MG PO PRN ×2 (06:11→11:57)
[2018-11-23] MEDS: Clopidogrel TAB* 75 MG PO SCH (08:00)
[2018-11-23] MEDS: Atenolol TAB* 50 MG PO SCH (08:00)
[2018-11-23] MEDS: Furosemide TAB* 20 MG PO SCH (08:00)
[2018-11-23] MEDS: Famotidine TAB* 20 MG PO SCH (08:00)
[2018-11-23] MEDS: carBAMazepine TAB(*) 200 MG PO SCH (08:00)
[2018-11-23] MEDS: clonazePAM TAB(*) 1 MG PO SCH (08:00)
[2018-11-23] MEDS: Nystatin TOP POWDER* 15 GM BTL TOPICAL SCH (08:01)
[2018-11-23] MEDS ORDERED: Amoxicillin/Clavulanate TAB* 875 MG PO SCH (09:00)
[2018-11-23 11:55] VITALS: BP 117/54
[2018-11-23] MEDS: Azithromycin IV(*) 500 MG in NS 0.9% 250 ML* 250 ML IVPB SCH (13:28)
[2018-11-23] MEDS ORDERED: Loperamide LIQ* 2 MG/10 ML UDC PO ONE (13:42)
--- NOTE | 2018-11-23 15:19 | DS ---
DISCHARGE SUMMARY: DATE OF ADMISSION: 11/20/18 DATE OF DISCHARGE: 11/23/18 PRIMARY CARE PROVIDER: ARGENTINA Harkins. ADMITTING PROVIDER: Shayla He NP. ATTENDING PHYSICIAN ON DAY OF DISCHARGE: Esvin Polanco MD. CHIEF COMPLAINT: Nasal congestion, cough, fevers, abdominal pain, nausea, vomiting, diarrhea. PRINCIPAL DIAGNOSES: 1. Enterococcus faecalis urinary tract infection. 2. Acute sinusitis. HISTORY OF PRESENT ILLNESS: Emma Vergara is an 83-year-old female with past medical history of hypothyroidism, anemia, hypertension, GERD, anxiety, depression, arthritis, irritable bowel syndrome. Please see H&P for full details. Briefly, she had been recently diagnosed with a viral upper respiratory tract infection and recommended supportive care by her PCP. She had been getting Mucinex nasal spray without relief. She developed thick clear mucus and return of a cough, had some pain in her back and abdomen, and 3 days of more productive, darker colored mucus and some loose stools, intermittent chills, and some chest discomfort earlier in the week. She had some urinary incontinence and increased frequency. She was referred to [facility] [place], where she was found to have near fever of 100.0. She had urinalysis suspicious for urinary tract infection, was empirically started on ceftriaxone (additionally with azithromycin as the admitting provider could not rule out a component of community-acquired pneumonia given the cough, but the chest x-ray official read did not show any acute cardiopulmonary disease). She had an elevated CRP of 189 , but no leukocytosis. Her BNP was 167. Her urine culture eventually would grow back Enterococcus faecalis pansensitive, except to tetracycline and quinupristin/dalfopristin and she was changed to Augmentin on the day of discharge and will continue a course of that. She had a CT of the brain on admission, which demonstrated no acute intracranial pathology, with moderate sinus mucosal inflammatory disease with air-fluid levels in the maxillary sinus and sphenoid sinus with correct clinical settings may represent acute sinusitis. She underwent physical therapy and did well. There was a concern of the family that the patient's is also elderly and somewhat infirm and we have arranged for visiting nurses service to establish (vs re-establish) care with them. She had sputum cultures with normal jim. Blood cultures are negative x2 days. She had negative influenza swabs and she should follow up with her primary care doctor. Also, of note, her TSH was elevated at 9.42, free T3 was low at 2.1, free T4 was normal at 0.67. Her Synthroid was increased from 75 mcg to 88 mcg daily and should be repeated in 4 to 6 weeks. DISCHARGE MEDICATIONS: Include: 1. Acetaminophen 650 mg p.o. q.4 hours p.r.n. 2. Augmentin 875 mg p.o. b.i.d. for 4 days. 3. Atenolol 50 mg p.o. b.i.d. 4. Atorvastatin 20 mg q.p.m. 5. Tegretol 200 mg p.o. b.i.d. 6. Klonopin 1 mg p.o. b.i.d. 7. Plavix 75 mg daily. 8. Ranitidine 150 mg p.o. b.i.d. 9. Lasix 20 mg daily. 10. Robitussin 10 mg p.o. q.6 hours p.r.n. 11. Levothyroxine 88 mcg p.o. daily (increase from 75 mcg p.o. daily). FOLLOWUP: The patient should follow up with Roxanne José within 7 days of discharge. Visiting nurses service should be establishing. DISPOSITION: Home, improved. TIME SPENT: Time spent on discharge 35 minutes. [id number]/CPS #: [id number] MTDD
== END 2018-11-23 15:00 | disposition home health service (06) | DRG 689 ==
LOC: ED 12:39 → MED 18:32
PROVIDERS: ADMIT Internal Medicine; ATTEND Internal Medicine
DX: N39.0 Urinary tract infection, site not specified (principal); I60.2 Nontraumatic subarachnoid hemorrhage from anterior communicating artery; B95.2 Enterococcus as the cause of diseases classified elsewhere; J01.80 Other acute sinusitis; E03.9 Hypothyroidism, unspecified; D64.9 Anemia, unspecified; I10 Essential (primary) hypertension; K21.9 Gastro-esophageal reflux disease without esophagitis; M19.90 Unspecified osteoarthritis, unspecified site; F41.9 Anxiety disorder, unspecified; F32.9 Major depressive disorder, single episode, unspecified; K58.9 Irritable bowel syndrome, unspecified; R10.9 Unspecified abdominal pain; G50.0 Trigeminal neuralgia; Z79.1 Long term (current) use of non-steroidal anti-inflammatories (NSAID); Z79.02 Long term (current) use of antithrombotics/antiplatelets; Z79.899 Other long term (current) drug therapy; Z88.2 Allergy status to sulfonamides; Z88.8 Allergy status to other drugs, medicaments and biological substances; Z80.1 Family history of malignant neoplasm of trachea, bronchus and lung; Z80.0 Family history of malignant neoplasm of digestive organs
CPT/HCPCS: 36415; 70450; 71045; 71046; 80048; 80053; 81003; 81015; 82550; 83605; 83880; 84439; 84443; 84481; 84484; 85025; 85610; 85730; 86140; 87040; 87070; 87077; 87086; 87186; 87205; 87899; 93005; 99284; A9270-GY; G8978-GP-CI; G8979-GP-CI; G8980-GP-CI; J0456; J0696; J1644

== ENCOUNTER 2018-12-23 18:08 | Emergency (ER) | payer MEDICARE, BC, OTHER ==
--- NOTE | 2018-12-23 19:34 | ED ---
Head Injury - HPI Summary HPI Summary: 83 yo WF c/o neck pain s/p fall while transferring groceries with her , they both fell and her landed on top of her, SHe thinks her head was hit but doesn't recall but does c/o of neck pain, denies LOC, blurry vision, w/ o focal deficits, pt drove herself here to - History Of Current Complaint Chief Complaint: UCHeadInjury Stated Complaint: HEAD INJURY Time Seen by Provider: 12/23/18 18:20 Hx Obtained From: Patient Hx Last Menstrual Period: post Pain Intensity: 4 - Allergies/Home Medications Allergies/Adverse Reactions: Allergies Allergy/AdvReac Type Severity Reaction Status Date / Time nabumetone [From Relafen] Allergy Swelling Verified 12/23/18 18:29 Of Face,Lips,& Throat Sulfa (Sulfonamide Allergy Rash Verified 12/23/18 18:29 Antibiotics) PMH/Surg Hx/FS Hx/Imm Hx Previously Healthy: Yes Endocrine/Hematology History: Reports: Hx Thyroid Disease, Hx Anemia Denies: Hx Diabetes Cardiovascular History: Reports: Hx Hypertension, Hx Valvular Heart Disease - MVP Denies: Hx Pacemaker/ICD GI History: Reports: Hx Gastroesophageal Reflux Disease History: Reports: Hx Kidney Stones, Hx Renal Disease Musculoskeletal History: Reports: Hx Arthritis Sensory History: Reports: Hx Cataracts, Hx Contacts or Glasses, Hx Eye Injury - Retina detachment on left eye, Hx Hearing Aid Opthamlomology History: Reports: Hx Cataracts, Hx Contacts or Glasses, Hx Eye Injury - Retina detachment on left eye Neurological History: Reports: Other Neuro Impairments/Disorders - Pt states tegretol used for right cheek, trigeminal neuralgia Psychiatric History: Reports: Hx Anxiety, Hx Depression, Hx Panic Disorder - Cancer History Hx Chemotherapy: No Hx Radiation Therapy: No - Surgical History Surgery Procedure, Year, and Place: HYSTERECTOMY 1984-APPENDECTOMY AGE 15- DETACHED RETINA-CLEARED BY ORBIT XRAY IN 2003. MEDTRONIC LINQ 11-OK FOR UP TO 3T-PLACED AT [facility] [place] 06/2016-ALL INFO DOCUMENTED - Immunization History Date of Tetanus Vaccine: 2012 Date of Influenza Vaccine: Fall 2014 Infectious Disease History: No Infectious Disease History: Denies: Hx of Known/Suspected MRSA, Traveled Outside the [place] in Last 30 Days - Family History Known Family History: Positive: Hypertension, Renal Disease, Other - no breast cancer Negative: Respiratory Disease, Seizure Disorder - Social History Alcohol Use: None Hx Substance Use: No Substance Use Type: Reports: None Hx Tobacco Use: No Smoking Status (MU): Never Smoked Tobacco Review of Systems - ROS Summary Review of Systems Summary: Constitutional: Negative Eyes: Negative ENT: Negative Cardiovascular: Negative Respiratory: Negative Gastrointestinal: Negative Genitourinary: Negative Musculoskeletal: neck pain Skin: Negative Neurological: Negative Psychological: Normal All Other Systems Reviewed And Are Negative: Yes All Other Systems Reviewed And Are Negative: Yes Physical Exam - Summary Physical Exam Summary: Vital Signs Reviewed: Yes Appearance: Positive: No Pain Distress Skin: Positive: Warm Head/Face: Positive: Normal Head/Face Inspection Eyes: Positive: Normal ENT: Positive: Normal ENT inspection Neck: Positive: Supple Respiratory/Lung Sounds: Positive: Clear to Auscultation. Negative: Rales, Rhonchi, Wheezes Cardiovascular: Positive: Normal, RRR, S1, S2 Abdomen Description: Positive: Nontender Musculoskeletal: Positive: neck ROM intact, mild TTP in paraspinal muscle in cervical spine Neurological: Positive: Normal, CN Intact II-III, NO focal deficits Psychiatric: Positive: Normal, Affect/Mood Appropriate Triage Information Reviewed: Yes Vital Signs On Initial Exam: Initial Vitals Temp Pulse Resp BP Pulse Ox 37.2 C 75 17 152/74 97 12/23/18 18:17 12/23/18 18:17 12/23/18 18:17 12/23/18 18:17 12/23/18 18:17 Diagnostics - Vital Signs Vital Signs Temp Pulse Resp BP Pulse Ox 12/23/18 18:17 37.2 C 75 17 152/74 97 - Laboratory Lab Statement: Any lab studies that have been ordered have been reviewed, and results considered in the medical decision making process. Head Injury Course/Dx Assessment/Plan: right intraventricular hemorrhage s/p fall- [place] called, pt to be transferred to [facility] [place] ER, Dr Gao informed - Diagnoses Differential Diagnosis/HQI/PQRI: Intracranial Bleed Provider Diagnoses: Fall, Neck pain, acute, Intraventricular hemorrhage Discharge - Sign-Out/Discharge Documenting (check all that apply): Patient Departure All imaging exams completed and their final reports reviewed: Yes - Discharge Plan Condition: Stable Disposition: HOME Referrals: Estefanía MOTLEY,Roxanne Munguia [Primary Care Provider] - - Billing Disposition and Condition Condition: STABLE Disposition: Home
[2018-12-23 20:31] VITALS: BP 154/73
== END 2018-12-23 20:56 | disposition short-term general hospital (02) ==
LOC: UCEAST 18:08
DX: M54.2 Cervicalgia (principal); I61.5 Nontraumatic intracerebral hemorrhage, intraventricular; Z88.2 Allergy status to sulfonamides; Z88.8 Allergy status to other drugs, medicaments and biological substances; W19.XXXA Unspecified fall, initial encounter
CPT/HCPCS: 70450; 72125; 99213; G0463

== ENCOUNTER 2018-12-23 21:09 | Inpatient (IN) | payer MEDICARE, BC, OTHER ==
--- NOTE | 2018-12-23 21:24 | ED ---
Head Injury - HPI Summary HPI Summary: Patient is an 83 y/o female who presents to the ED s/p head injury. She was sent here from the for further evaluation. A brain CT at the revealed Posttraumatic right intraventricular hemorrhage. A cervical spine CT was negative. Patient states she fell earlier today and hit the back of her head on a small rock. She states she also hit the same area a few weeks ago as well. She denies any LOC. Patient currently reports neck pain, but denies any head pain or headache. She is on Plavix for a TIA. - History Of Current Complaint Stated Complaint: HEAD INJURY PER EMS Time Seen by Provider: 12/23/18 21:13 Hx Obtained From: Patient, Medical Records Hx Last Menstrual Period: post Mechanism Of Injury: Blunt Trauma - fell onto rock Onset/Duration: Started Hours Ago, Still Present Severity Currently: None Pain Intensity: 0 Pain Scale Used: 0-10 Numeric Location of Head Injury: Other: - posterior apex Associated Signs And Symptoms: Neck Pain Anticoagulant Therapy: Platelet Inhibitors - Plavix - Allergies/Home Medications Allergies/Adverse Reactions: Allergies Allergy/AdvReac Type Severity Reaction Status Date / Time nabumetone [From Relafen] Allergy Swelling Verified 12/23/18 18:29 Of Face,Lips,& Throat Sulfa (Sulfonamide Allergy Rash Verified 12/23/18 18:29 Antibiotics) PMH/Surg Hx/FS Hx/Imm Hx Endocrine/Hematology History: Reports: Hx Thyroid Disease, Hx Anemia Denies: Hx Diabetes Cardiovascular History: Reports: Hx Hypertension, Hx Valvular Heart Disease - MVP Denies: Hx Pacemaker/ICD GI History: Reports: Hx Gastroesophageal Reflux Disease History: Reports: Hx Kidney Stones, Hx Renal Disease Musculoskeletal History: Reports: Hx Arthritis Sensory History: Reports: Hx Cataracts, Hx Contacts or Glasses, Hx Eye Injury - Retina detachment on left eye, Hx Hearing Aid Opthamlomology History: Reports: Hx Cataracts, Hx Contacts or Glasses, Hx Eye Injury - Retina detachment on left eye Neurological History: Reports: Hx Transient Ischemic Attacks (TIA), Other Neuro Impairments/Disorders - Pt states tegretol used for right cheek, trigeminal neuralgia Psychiatric History: Reports: Hx Anxiety, Hx Depression, Hx Panic Disorder - Cancer History Hx Chemotherapy: No Hx Radiation Therapy: No - Surgical History Surgery Procedure, Year, and Place: HYSTERECTOMY 1984-APPENDECTOMY AGE 15- DETACHED RETINA-CLEARED BY ORBIT XRAY IN 2003. MEDTRONIC LINQ 11-OK FOR UP TO 3T-PLACED AT [facility] [place] 06/2016-ALL INFO DOCUMENTED - Immunization History Date of Tetanus Vaccine: 2012 Date of Influenza Vaccine: Fall 2014 Infectious Disease History: No Infectious Disease History: Denies: Hx of Known/Suspected MRSA, Traveled Outside the US in Last 30 Days - Family History Known Family History: Positive: Hypertension, Renal Disease, Other - no breast cancer Negative: Respiratory Disease, Seizure Disorder - Social History Alcohol Use: None Hx Substance Use: No Substance Use Type: Reports: None Hx Tobacco Use: No Smoking Status (MU): Never Smoked Tobacco Review of Systems Positive: Myalgia - neck pain. Negative: Other - head pain Positive: Other - swelling to back of head Neurological: Other - NEGATIVE: LOC Negative: Headache All Other Systems Reviewed And Are Negative: Yes Physical Exam - Summary Physical Exam Summary: Appearance: Well appearing, no pain distress Skin: warm, dry, reflects adequate perfusion Head/face: small area of swelling to posterior apex Eyes: EOMI, CATALINA ENT: mucous membranes moist Neck: supple, non-tender Respiratory: CTA, breath sounds present Cardiovascular: irregularly irregular rhythm, pulses symmetrical, loop recorder left chest Abdomen: non-tender, soft Bowel Sounds: present Musculoskeletal: normal, strength/ROM intact Neuro: normal, sensory motor intact, A&Ox3 Triage Information Reviewed: Yes Vital Signs On Initial Exam: Initial Vitals Temp Pulse Resp BP Pulse Ox 98.6 F 70 18 165/65 98 12/23/18 21:11 12/23/18 21:11 12/23/18 21:11 12/23/18 21:11 12/23/18 21:11 Vital Signs Reviewed: Yes - Janet Coma Scale Best Eye Response: 4 - Spontaneous Best Motor Response: 6 - Obeys Commands Best Verbal Response: 5 - Oriented Coma Scale Total: 15 Diagnostics - Vital Signs Vital Signs Temp Pulse Resp BP Pulse Ox 12/23/18 21:11 98.6 F 70 18 165/65 98 - Laboratory Result Diagrams: 12/23/18 21:21 12/23/18 21:21 Lab Statement: Any lab studies that have been ordered have been reviewed, and results considered in the medical decision making process. - Radiology CXR Radiology Interpretation Completed By: ED Physician Summary of Radiographic Findings: No acute pulmonary disease. Pending official radiology report. - EKG 21:27 Cardiac Rate: Other Rate - AFib - 67 EKG Rhythm: Atrial Fibrillation ST Segment: Normal Summary of EKG Findings: Nl axis National Institutes Of Health - NIH Scale Level of Consciousness: Alert/Keenly Responsive Ask Patient the Month and His/Her Age: Both Correct Ask Pt to Open/Close Eyes and Food Service Coordinator/Release Non-Paretic Hand: Both Correctly Best Gaze (Only Horizontal Eye Movement): Normal Visual Field Testing: No Visual Loss Facial Paresis-Pt to Smile & Close Eyes or Grimace Symmetry: Normal/Symmetrical Motor Function - Right Arm: No Drift-Holds 10 Seconds Motor Function - Left Arm: No Drift-Holds 10 Seconds Motor Function - Right Leg: No Drift-Holds 10 Seconds Motor Function - Left Leg: No Drift-Holds 10 Seconds Limb Ataxia-Must be out of Proportion to Weakness Present: Absent Sensory (Use Pinprick to Test Arms/Legs/Trunk/Face): Normal Best Language (Describe Picture, Name Items): No Aphasia Dysarthria (Read Several Words): Normal Extinction and Inattention: No Abnormality Total Score: 0 Head Injury Course/Dx Course Of Treatment: Nurse's notes reviewed. Patient with small intraventricular hemorrhage seen on CT performed at urgent care. Neck CT negative. Patient does have atrial fibrillation as well and is only on Plavix. Discussed with neurosurgery who would like to have platelets transfused. Patient has neurologically intact with a GCS of 15. Discussed with the hospitalist will admit for further. Repeat head CT in the morning. - Diagnoses Differential Diagnosis/HQI/PQRI: Intracranial Bleed, Other - Medication reaction /side effect Provider Diagnoses: Traumatic intraventricular hemorrhage - Physician Notifications Discussed Care Of Patient With: Vassilios Dimopoulos Time Discussed With Above Provider: 21:16 Instructed by Provider To: Other - Admit the pt to the hospitalist, and give platelets. At 21:35 Dr. Aguirre accepts pt for admission. - Critical Care Time Critical Care Time: 30-74 min - Critical care time is exclusive of separately billable procedures. Discharge - Sign-Out/Discharge Documenting (check all that apply): Patient Departure - Admit Patient Received Moderate/Deep Sedation with Procedure: No - Discharge Plan Condition: Guarded Disposition: ADMITTED TO [facility] Referrals: Estefanía MOTLEY,Roxanne Munguia [Primary Care Provider] - - Billing Disposition and Condition Condition: GUARDED Disposition: Admitted to [facility] - Attestation Statements Document Initiated by Scribe: Yes Documenting Scribe: Rebecca Triana Provider For Whom Valorieibe is Documenting (Include Credential): Pierce Gao MD Scribe Attestation: Rebecca Hassan, scribed for Pierce Gao MD on 12/23/18 at 2157. Scribe Documentation Reviewed: Yes Provider Attestation: The documentation as recorded by the Rebecca short accurately reflects the service I personally performed and the decisions made by me, Pierce Gao MD Status of Scribe Document: Viewed
[2018-12-23 21:33] LABS: Hematocrit 32 % (33-41); Hemoglobin 10.7 g/dL (12.0-16.0); Mean Corpuscular HGB Conc 33 g/dL (31-36); Mean Corpuscular Hemoglobin 30 pg (27-31); Mean Corpuscular Volume 92 fL (80-97); Mean Platelet Volume 6.8 fL (7.4-10.4); Platelet Count 254 10^3/uL (150-450); Red Blood Count 3.51 10^6 /uL (3.70-4.87); Red Cell Distribution Width 13 % (10.5-15); White Blood Count 7.4 10^3/uL (3.5-10.8)
[2018-12-23 21:42] LABS: Activated Partial Thrombo Time 31.2 seconds (26.0-36.3); INR 0.85 (0.77-1.02)
[2018-12-23 21:48] LABS: ALT 17 U/L (7-52); Albumin 4.1 g/dL (3.2-5.2); Albumin/Globulin Ratio 1.6 (1-3); Alkaline Phosphatase 85 U/L (34-104); BUN/Creatinine Ratio 22.6 (8-20); Blood Urea Nitrogen 24 mg/dL (6-24); CO2 Carbon Dioxide 29 mmol/L (22-32); Calcium 9.1 mg/dL (8.6-10.3); Chloride 102 mmol/L (101-111); EGFR African American 59.6 (>60); EGFR Non-African American 49.3 (>60); Globulin 2.6 g/dL (2-4); Glucose 101 mg/dL (70-100); Sodium 137 mmol/L (135-145); Total Protein 6.7 g/dL (6.4-8.9)
[2018-12-23] MEDS ORDERED: Al Hydrox/Mg Hydrox/Simet LIQ* 30 ML UDC PO PRN (21:53)
[2018-12-23] MEDS ORDERED: Ondansetron INJ* 2 MG/ML VIAL IV PRN (21:53)
[2018-12-23 22:21] LABS: Anion Gap 6 mmol/L (2-11)
[2018-12-23 22:47] LABS: ABS Basophils 0.1 10^3/ul (0-0.2); ABS Eosinophils 0.2 10^3/ul (0-0.6); ABS Lymphocytes 2.1 10^3/ul (1.0-4.8); ABS Monocytes 0.6 10^3/ul (0-0.8); ABS Neutrophils 4.5 10^3/ul (1.5-7.7); ABS Nucleated RBC 0 10^3/ul; Eosinophil % 2.7 %; Lymphocyte % 28.2 %; Nucleated Red Blood Cells % 0
[2018-12-24] MEDS: carBAMazepine TAB(*) 200 MG PO SCH ×3 (00:02→21:48)
[2018-12-24] MEDS: clonazePAM TAB(*) 1 MG PO SCH ×3 (00:02→21:48)
[2018-12-24] MEDS: Acetaminophen TAB* 325 MG PO PRN ×2 (00:02→21:51)
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
[2018-12-24] MEDS: Levothyroxine TAB* 88 MCG TAB PO SCH (05:43)
[2018-12-24 06:06] LABS: ABS Basophils 0 10^3/ul (0-0.2); ABS Eosinophils 0.2 10^3/ul (0-0.6); ABS Lymphocytes 1.6 10^3/ul (1.0-4.8); ABS Monocytes 0.4 10^3/ul (0-0.8); ABS Neutrophils 2.4 10^3/ul (1.5-7.7); ABS Nucleated RBC 0 10^3/ul; Eosinophil % 3.4 %; Hematocrit 30 % (33-41); Hemoglobin 9.7 g/dL (12.0-16.0); Lymphocyte % 34.5 %; Mean Corpuscular HGB Conc 33 g/dL (31-36); Mean Corpuscular Hemoglobin 30 pg (27-31); Mean Corpuscular Volume 92 fL (80-97); Nucleated Red Blood Cells % 0; Platelet Count 266 10^3/uL (150-450); Red Blood Count 3.21 10^6 /uL (3.70-4.87); Red Cell Distribution Width 13 % (10.5-15); White Blood Count 4.6 10^3/uL (3.5-10.8)
[2018-12-24 06:36] LABS: BUN/Creatinine Ratio 22.2 (8-20); Calcium 8.7 mg/dL (8.6-10.3); EGFR African American 64.5 (>60); EGFR Non-African American 53.3 (>60)
[2018-12-24] MEDS: Famotidine TAB* 20 MG PO SCH (10:27)
[2018-12-24] MEDS: Atenolol TAB* 50 MG PO SCH (10:27)
[2018-12-24 12:05] LABS: Potassium Redraw 4.5 mmol/L (3.5-5.0)
[2018-12-24 12:15] LABS: % Iron Saturation 21 % (15-55); Iron 66 ug/dL (50-212); Total Iron Binding Capacity 321 mcg/dL (250-450); Transferrin 229 mg/dL (203-362)
[2018-12-24 12:37] LABS: Ferritin 53.3 ng/mL (11-307)
[2018-12-24 12:41] LABS: Folate 14.98 ng/mL (>3.99)
--- NOTE | 2018-12-24 17:41 | PN ---
Subjective Date of Service: 12/24/18 Interval History: Patient is asymptomatic besides occasional headache and neck/back pain which is chronic. Patient states she remembers the whole incident of falling and did not lose conciousness and did not have prodromal symptoms. Patient feels very comfortable on her feet. Patient denies CP, SOB, F/C, N/V, abdominal pain, diarrhea, or other pain. Family History: Unchanged from Admission Social History: Unchanged from Admission Past Medical History: Unchanged from Admission Objective Active Medications: Acetaminophen (Tylenol Tab*) 650 mg PO Q4H PRN PRN Reason: FEVER/PAIN Last Admin: 12/24/18 00:02 Dose: 650 mg Al Hydrox/Mg Hydrox/Simethicone (Maalox Plus*) 30 ml PO Q6H PRN PRN Reason: INDIGESTION Atenolol (Tenormin Tab*) 50 mg PO DAILY [facility] Last Admin: 12/24/18 10:27 Dose: 50 mg Atorvastatin Calcium (Lipitor*) 20 mg PO 2100 [facility] Carbamazepine (Tegretol Tab(*)) 200 mg PO BID [facility] Last Admin: 12/24/18 10:27 Dose: 200 mg Clonazepam (Klonopin Tab(*)) 1 mg PO BID [facility] Last Admin: 12/24/18 10:27 Dose: 1 mg Famotidine (Pepcid Tab*) 20 mg PO DAILY [facility] Last Admin: 12/24/18 10:27 Dose: 20 mg Levothyroxine Sodium (Synthroid Tab*) 88 mcg PO DAILY@0600 [facility] Last Admin: 12/24/18 05:43 Dose: 88 mcg Ondansetron HCl (Zofran Inj*) 4 mg IV Q4H PRN PRN Reason: NAUSEA/VOMITING Vital Signs - 8 hr 12/24/18 12/24/18 12/24/18 10:00 10:01 11:00 Temperature Pulse Rate 68 67 66 Respiratory 18 20 20 Rate Blood Pressure 140/53 114/58 (mmHg) O2 Sat by Pulse 97 97 95 Oximetry 12/24/18 12/24/18 12/24/18 12:00 13:00 16:00 Temperature 98.6 F 98.1 F Pulse Rate 66 63 Respiratory 18 16 Rate Blood Pressure 121/57 133/67 (mmHg) O2 Sat by Pulse 96 95 Oximetry Oxygen Devices in Use Now: None Appearance: Patient is an 83yo female who appears stated age and is sitting in the bed in NAD. Eyes: No Scleral Icterus, PERRLA Ears/Nose/Mouth/Throat: NL Teeth, Lips, Gums, Clear Oropharnyx, Mucous Membranes Moist Neck: NL Appearance and Movements; NL JVP, Trachea Midline Respiratory: Symmetrical Chest Expansion and Respiratory Effort, Clear to Auscultation Cardiovascular: NL Sounds; No Murmurs; No JVD, RRR, No Edema Abdominal: NL Sounds; No Tenderness; No Distention, No Hepatosplenomegaly Lymphatic: No Cervical Adenopathy Extremities: No Edema, No Clubbing, Cyanosis Skin: No Rash or Ulcers, No Nodules or Sclerosis Neurological: Alert and Oriented x 3, NL Sensation, NL Muscle Strength and Tone , - - CN II-XII intact. Result Diagrams: 12/24/18 05:47 12/24/18 05:47 Microbiology and Other Data: Microbiology 12/23/18 23:00 Nasal Screen MRSA (PCR) - Final Nasal Mrsa Not Detected Assess/Plan/Problems-Billing Assessment: Patient is an 83yo female with a PMH for CVA, UTI, CKD, who is admitted after a mechanical fall with an intraparenchymal hemorrhage and is stable. Patient's family has concerns about her behaviors and frequent falling. - Patient Problems (1) Intraparenchymal hematoma of brain due to trauma Current Visit: Yes Status: Acute Code(s): S06.369A - TRAUM HEMOR CEREB, W LOC OF UNSP DURATION, INIT SNOMED Code(s): 848006705 Comment: - Small, appreciate neurosurgical input - No hydrocephalus - No deficits, from trauma. - Transfer out of ICU and decrease neuro checks to q8h. - PT/OT consult pending. (2) History of CVA (cerebrovascular accident) Current Visit: Yes Status: Acute Code(s): Z86.73 - PRSNL HX OF TIA (TIA), AND CEREB INFRC W/O RESID DEFICITS SNOMED Code(s): 288199117 Comment: - No residual deficits, hold plavix due to intraparencymal hemorrhage. - Continue Lipitor (3) HTN (hypertension) Current Visit: No Status: Chronic Code(s): I10 - ESSENTIAL (PRIMARY) HYPERTENSION SNOMED Code(s): 69073839 Comment: - Controlled. Continue atenolol. (4) Hypothyroidism Current Visit: No Status: Chronic Code(s): E03.9 - HYPOTHYROIDISM, UNSPECIFIED SNOMED Code(s): 61675192 Comment: - Continue levothyroxine - Check TSH due to concern for mental deterioration. (5) DVT prophylaxis Current Visit: No Status: Acute Code(s): UJZ3146 - SNOMED Code(s): 112909854 Comment: - SCDs with intraparenchymal hemorrhage. (6) Full code status Current Visit: No Status: Acute Code(s): Z78.9 - OTHER SPECIFIED HEALTH STATUS SNOMED Code(s): 604201275 Status and Disposition: Inpatient, Hopeful discharge tomorrow.
[2018-12-24 18:21] LABS: TSH (Thyroid Stimulating Horm) 0.65 mcIU/mL (0.34-5.60)
[2018-12-24] MEDS ORDERED: Atorvastatin* 20 MG TAB PO SCH (21:00)
--- NOTE | 2018-12-25 01:27 | CONS ---
CONSULTATION REPORT: DATE OF CONSULT: 12/24/18 HISTORY OF PRESENT ILLNESS: The patient is a very pleasant 83-year-old female with a history of ischemic stroke, who was on Plavix, who presented to the emergency room from urgent care after she was reported to have sustained a fall. The patient reports that her lost his footing and fell on her, and then she fell backwards, hitting her head on a rock. The patient denies loss of consciousness, denies any neck pain, denies any back pain, denies any loss of memory. The patient denies any vision , hearing, or speech difficulties. She denies any seizure. Denies any weakness , numbness, or tingling of her extremities. She was able to ambulate. She denies urinary or GI incontinence. PAST MEDICAL HISTORY: Urinary tract infection, CVA, hypothyroidism, anemia, hypertension, GERD, arthritis, anxiety and depression, trigeminal neuralgia, CKD , early dementia versus cognitive impairment. PAST SURGICAL HISTORY: Left retinal detachment repair, history of hysterectomy , history of appendectomy. MEDICATIONS: The patient was on: 1. Clonazepam. 2. Refresh eye drops. 3. Ranitidine. 4. Lasix. 5. Tegretol. 6. Synthroid. 7. Plavix. 8. Tylenol. 9. Atorvastatin. 10. Atenolol. ALLERGIES: NABUMETONE and SULFA. FAMILY HISTORY: Noncontributory. SOCIAL HISTORY: Tobacco negative. Alcohol negative. Recreational drugs use negative. The patient lives at home with her who is her healthcare proxy. PHYSICAL EXAM: The patient is not in acute distress. She is awake, alert, and oriented x3. Her pupils are equal and reactive. Cranial nerves II through XII grossly intact. Motor 4-5/5 in all extremities. No pronator drift. Sensory grossly intact to light touch. Deep tendon reflexes +1 bilaterally. No clonus. No Babinski's. Matt's negative. Straight leg test negative in the sitting position. Patient has no tenderness to palpation throughout the patient's cervical, thoracic or lumbar spine. She has free range of motion of the cervical spine. DIAGNOSTIC STUDIES/LAB DATA: Studies: Patient had a CT scan of the brain revealing a very small right intraventricular hemorrhage. The patient had a CT scan of the cervical spine revealing degenerative disk disease without evidence of fracture or subluxation. ASSESSMENT AND PLAN: The patient is a very pleasant 83-year-old female with past medical history of atrial fibrillation, chronic kidney disease, cerebrovascular accident, who was on Plavix, who presented after a reported fall with CT scan findings consistent with a very small right intraventricular hemorrhage. The patient is currently admitted by the emergency service and she was monitored overnight, currently admitted to intensive care unit and she received platelets. She had a V/Q scan today that did not reveal any progression of the intraventricular hemorrhage and actually revealed almost clinical resolution. The patient does have some mild ventriculomegaly with possible ex vacuo phenomenon. The patient at this point is doing quite well. Her repeat CT revealed resolution of intraventricular hemorrhage. The patient was scheduled for an MRI that confirmed the presence of intraventricular hemorrhage without evidence of infarction or other foci of past hemorrhage. The patient at this point remains neurologically intact. No neurosurgical intervention is needed. On FLAIR imaging of the MRI, there is no significant transependymal absorption, so her ventriculomegaly most likely is the result of her cerebral atrophy. No further images or intervention at this time. Thank very much for allowing us to participate in the care of this patient. Please do not hesitate to contact our office in case you have any further questions or concerns regarding the care of this patient. [id number]/[facility] #: [id number] MERLINE
[2018-12-25] MEDS: Levothyroxine TAB* 88 MCG TAB PO SCH (05:21)
[2018-12-25 05:42] LABS: Hematocrit 30 % (33-41); Hemoglobin 10.1 g/dL (12.0-16.0); Mean Corpuscular HGB Conc 33 g/dL (31-36); Mean Corpuscular Hemoglobin 31 pg (27-31); Mean Corpuscular Volume 92 fL (80-97); Platelet Count 258 10^3/uL (150-450); Red Blood Count 3.31 10^6 /uL (3.70-4.87); Red Cell Distribution Width 13 % (10.5-15); White Blood Count 4.3 10^3/uL (3.5-10.8)
[2018-12-25 05:59] LABS: Calcium 8.6 mg/dL (8.6-10.3); EGFR African American 63.8 (>60); EGFR Non-African American 52.7 (>60); Magnesium 2.3 mg/dL (1.9-2.7); Potassium 3.9 mmol/L (3.5-5.0)
[2018-12-25 06:32] LABS: ABS Basophils 0 10^3/ul (0-0.2); ABS Eosinophils 0.2 10^3/ul (0-0.6); ABS Lymphocytes 1.5 10^3/ul (1.0-4.8); ABS Monocytes 0.4 10^3/ul (0-0.8); ABS Neutrophils 2.1 10^3/ul (1.5-7.7); ABS Nucleated RBC 0 10^3/ul; Eosinophil % 4.1 %; Lymphocyte % 35.8 %; Nucleated Red Blood Cells % 0.1; Polychromasia 1+
[2018-12-25 08:13] LABS: Urine Appearance Cloudy; Urine Bacteria Absent (Absent); Urine Bilirubin Negative (Negative); Urine Blood Negative (Negative); Urine Color Yellow; Urine Glucose Negative (Negative); Urine Ketones Negative (Negative); Urine Nitrite Positive (Negative); Urine Protein Negative (Negative); Urine Red Blood Cell Trace(0-2/hpf) (Absent); Urine Specific Gravity 1.014 (1.010-1.030); Urine Squamous Epithelial Cell Present (Absent); Urine Urobilinogen Negative (Negative); Urine White Blood Cell Trace(0-5/hpf) (Absent)
[2018-12-25] MEDS: clonazePAM TAB(*) 1 MG PO SCH (08:25)
[2018-12-25] MEDS: carBAMazepine TAB(*) 200 MG PO SCH (08:25)
[2018-12-25] MEDS: Atenolol TAB* 50 MG PO SCH (08:26)
[2018-12-25] MEDS: Famotidine TAB* 20 MG PO SCH (08:26)
[2018-12-25 11:44] VITALS: BP 145/50
--- NOTE | 2018-12-26 03:51 | DS ---
CC: ARGENTINA Amador; Dr. Eddie Mathias.* DISCHARGE SUMMARY: DATE OF ADMISSION: 12/23/18 DATE OF DISCHARGE: 12/25/18 PRIMARY CARE PROVIDER: ARGENTINA Amador MY ATTENDING WHILE IN HOSPITAL: Dr. Prateek Rangel.* (DICTATED BY ARGENTINA MILLER) CONSULTING NEUROSURGEON: Dr. Eddie Mathias. PRIMARY DISCHARGE DIAGNOSES: 1. Mechanical fall. 2. Tiny intraventricular hemorrhage. 3. History of urinary tract infection. 4. History of ischemic stroke. 5. Hypothyroidism. 6. Anemia. 7. Hypertension. 8. Gastroesophageal reflux disease. 9. Arthritis. 10. Anxiety and depression. 11. Trigeminal neuralgia. 12. Chronic kidney disease. 13. Mild cognitive impairment. STUDIES DONE WHILE IN THE HOSPITAL: Chest x-ray from 12/23/18 read as mild cardiopulmonary disease. Brain CT from 12/24/18 read as significant resolution of tiny right lateral ventricle intraventricular hemorrhage. No new intracranial hemorrhage or mass affect. Brain MRI read as small amount of intraventricular hemorrhage, diffuse involutional change, chronic small vessel ischemic changes. CT from 12/23/18 read as posttraumatic right intraventricular hemorrhage, age- related atrophy and mild chronic small vessel ischemic disease. MEDICATIONS AT DISCHARGE: 1. Refresh eye drops, 1 drop to both eyes q.2 hours as needed. 2. Clonazepam 1 mg p.o. b.i.d. 3. Tegretol 200 mg p.o. b.i.d. 4. Atenolol 50 mg p.o. b.i.d. 5. Clopidogrel 75 mg p.o. daily. 6. Atorvastatin 20 mg p.o. q.p.m. 7. Tylenol 650 mg p.o. q.4 hours as needed. 8. Ranitidine 150 mg p.o. b.i.d. 9. Guaifenesin 10 mL p.o. q.6 hours as needed. 10. Levothyroxine 88 mcg p.o. daily. 11. Loperamide 2 mg p.o. q.4 hours as needed. HOSPITAL COURSE: This is a brief summary of the patient's presentation. For more details, please see the history and physical from Dr. Brittny Aguirre from . In brief, patient is an 83-year-old female with a past medical history as above who presented to the emergency department after a mechanical fall when her was walking at the stairs and fell backwards onto her. She did not lose consciousness. She did not have prodromal symptoms. She hit her head and she reports she injured her neck while trying not to hit her head on the ground. Patient had no neurological deficits; however, she was found to be acting strangely soon after the fall. She was taken to urgent care by ambulance , which showed a posttraumatic right intraventricular hemorrhage and was sent to the emergency department. The patient in the emergency department was referred to the hospitalist service for right intraventricular hemorrhage. Patient was again found to have no neurological deficits. Patient had a repeat CT scan which was stable. Patient had numerous normal neuro checks. There was concern for possible hydrocephalus due to the intraventricular hemorrhage and patient had an MRI which showed no hydrocephalus and was read otherwise as above. Patient was seen in consultation by Dr. Mathias of Neurosurgery, who did not recommend any further images or intervention. Patient was seen in consultation by Physical Therapy and Occupational Therapy, who recommended she use a walker, but otherwise stated that she had no PT needs. Patient's was entirely appropriate with only mild forgetfulness during her hospitalization, and this was discussed with the patient's son who stated that she does not act entirely different at home than she does out in the world. The patient was stable and was discharged on . PHYSICAL EXAMINATION ON THE DATE OF DISCHARGE: General: The patient is an 83- year- old female who appears her stated age and sitting comfortably in bed, in no acute distress. Vital Signs: Temperature 97.8, pulse rate 67, respiratory rate 18, oxygen saturation 98% on room air, blood pressure 145/50. HEENT: Head normocephalic, atraumatic. Sclerae nonicteric. No conjunctival injection. Nasal mucosa moist. Oral mucosa moist. Neck: Supple, nontender. No lymphadenopathy. No carotid bruits auscultated. No JVD. Cardiac: Regular rate and rhythm. No clicks, murmurs, gallops, or rubs. Pulses are 2+ in the dorsalis pedis, posterior tibialis, and radial areas. Respiratory: Clear to auscultation bilaterally. No wheezes, rales, or rhonchi. Good air exchange bilaterally. Abdomen: Soft, nontender, nondistended. Bowel sounds present. Normoactive in all 4 quadrants. No hepatosplenomegaly. No abdominal bruits auscultated. No hepatojugular reflux. Genitourinary: No suprapubic or CVA tenderness. Skin: Clear, dry, and intact. No rash. Neuro: Cranial nerves II through XII intact. No focal deficits. Alert and oriented x3. Psychiatric: Pleasant and cooperative. DISCHARGE PLAN: Patient will be discharged to home. The patient should follow up with primary care provider within 1 week for general medical management. The patient has been cleared by her neurosurgeon who restarted her clopidogrel for secondary stroke prevention, this will be done. Patient is mildly anemic. Patient has normal B12, folate, and iron studies. Patient has been recommended to have endoscopy numerous times in the past, this would be recommended at this time as well. Patient should be referred to a geriatric psychiatrist if she continues to have aggressive and restless behaviors. Patient should have a heart healthy diet without caffeine and engage in activities as tolerated. Patient will be established by VNS and have to be evaluated by physical and occupational therapy at home. TIME SPENT: Approximately 60 minutes was spent on the discharge of this present , 30 of which was spent [id number] with the patient obtaining history and physical and discussing treatment plan. ARGENTINA MILLER [id number]/[facility] #: [id number] MTDD
[2018-12-26] MEDS ORDERED: Clopidogrel TAB* 75 MG PO SCH (09:00)
== END 2018-12-25 15:02 | disposition home health service (06) | DRG 87 ==
LOC: ED 21:09 → ICU 21:53 → MEDTELE 12-24 17:00
PROVIDERS: ADMIT Pediatrics; ATTEND Pediatrics
PROC: 30233R1 Transfusion of Nonautologous Platelets into Peripheral Vein, Percutaneous Approach (ICD-10-PCS; principal; 2018-12-23)
DX: S06.340A Traumatic hemorrhage of right cerebrum without loss of consciousness, initial encounter (principal); I48.91 Unspecified atrial fibrillation; W03.XXXA Other fall on same level due to collision with another person, initial encounter; Y92.096 Garden or yard of other non-institutional residence as the place of occurrence of the external cause; E03.9 Hypothyroidism, unspecified; D64.9 Anemia, unspecified; I10 Essential (primary) hypertension; K21.9 Gastro-esophageal reflux disease without esophagitis; M19.90 Unspecified osteoarthritis, unspecified site; F41.9 Anxiety disorder, unspecified; F32.9 Major depressive disorder, single episode, unspecified; G50.0 Trigeminal neuralgia; I12.9 Hypertensive chronic kidney disease with stage 1 through stage 4 chronic kidney disease, or unspecified chronic kidney disease; N18.9 Chronic kidney disease, unspecified; G31.84 Mild cognitive impairment of uncertain or unknown etiology; F03.90 Unspecified dementia, unspecified severity, without behavioral disturbance, psychotic disturbance, mood disturbance, and anxiety; Z86.73 Personal history of transient ischemic attack (TIA), and cerebral infarction without residual deficits; Z79.1 Long term (current) use of non-steroidal anti-inflammatories (NSAID); Z79.02 Long term (current) use of antithrombotics/antiplatelets; Z79.899 Other long term (current) drug therapy; Z88.2 Allergy status to sulfonamides; Z88.8 Allergy status to other drugs, medicaments and biological substances; Z82.49 Family history of ischemic heart disease and other diseases of the circulatory system; Z84.1 Family history of disorders of kidney and ureter; Z87.440 Personal history of urinary (tract) infections
CPT/HCPCS: 36415; 70450; 70551; 71045; 80048; 80053; 81003; 81015; 82607; 82728; 82746; 83540; 83550; 83735; 84443; 85025; 85610; 85730; 86850; 86900; 86901; 87086; 87641; 93005; 99285; A9270-GY; G8978-GP-CI; G8979-GP-CI; G8980-GP-CI; G8987-GO-CI; G8988-GO-CI; G8989-GO-CI; P9035

== ENCOUNTER 2019-03-06 20:05 | Emergency (ER) | payer MEDICARE, BC, OTHER ==
--- OUTSIDE RECORDS SUMMARY | 2019-03-06 20:15 | XMS REPORT | Continuity of Care Document ---
:1935 External Reference #:[id number] Author Name TeresaMarisa ty Care Team Providers Name Role Phone Roxanne Sanchez PA Primary Care Physician Unavailable Payers Date Identification Numbers Payment Provider Subscriber Effective: 1998 Policy Number: [id number] Medicare Emma Vergara PayID: [id number] [address] [place] [address] Effective: 2012 Policy Number: [id number] Facets Emma Main Jai PayID: [id number] [address] [address] [place] [address] Policy Number: [id number] Formerly [facility] Emma Vergara Group Number: [id number] [address] PayID: [id number] [place] [address] Problems Active Problems Provider Date Trigeminal neuralgia Gui Rich M.D. Onset: 05/30/2015 Essential hypertension Ria Brothers M.D. Onset: 03/20/2016 Cerebral artery occlusion Ria Brothers M.D. Onset: 06/02/2016 Mixed hyperlipidemia Ria Brothers M.D. Onset: 06/02/2016 Presence of other cardiac implants and Ria Brothers M.D. Onset: 12/05/2016 grafts Sinus node dysfunction Ria Brothers M.D. Onset: 01/22/2017 Supraventricular premature beats Ria Brothers M.D. Onset: 01/22/2017 History of cerebrovascular accident without Ria Brothers M.D. Onset: 2016 residual deficits Localized, primary osteoarthritis Ruthy Tolliver M.D. Onset: 10/09/2017 Family History Date Family Member(s) Observation Comments General Heart Disease General Hypertension General Stroke General Cancer Father Emphysema Mother Kidney Disease First Brother Emphysema Second Brother Liver Cancer Third Brother Lung Cancer First Sister Cerebrovascular Accident (CVA) ? arrhythmia, in [place], occured 2017. Social History Type Date Description Comments Sex Unknown Lives With Occupation Retired Tobacco Use Start: Unknown Never Smoked Cigarettes Smoking Status Reviewed: 03/04/19 Never Smoked Cigarettes ETOH Use Never used alcohol Tobacco Use Start: Unknown Patient has never smoked Recreational Drug Use Denies Drug Use Exercise Type/Frequency Exercises sporadically Allergies, Adverse Reactions, Alerts Active Allergies Reaction Severity Comments Date Relafen 04/12/2013 Sulfa Antibiotics 04/12/2013 Medications Active Medications SIG Qnty Indications Ordering Date Provider Juan Miguel Complete 1 by mouth every Unknown 60mg day Chewtabs Lasix take for leg Unknown pain as needed Synthroid 1 by mouth every Unknown 88mcg Tablets day Acetaminophen 2 tablets by Unknown 325mg mouth every 6 Tablets hours as needed for pain/fever Clopidogrel Bisulfate 1 by mouth every 90tabs Gui Mcintosh day Rama Rich 75mg Tablets Atorvastatin Calcium take 1 tablet at Unknown 20mg bedtime Tablets Vitamin B-12 1 tab po every Unknown Natural day 500mcg Tablets Atenolol 1 by mouth every 60tabs Qutaelina S. 50mg Tablets morning and 1 Rama Tubbs tab every evening Carbamazepine 1 tab by mouth 180tabs Gui Mcintosh 200mg twice a day Rama Rich Tablets Refresh Liquigel 1 gtt each eye Unknown 1% prn Solution Lexapro 1 po bid 30tabs Unknown 10mg Tablets Clonazepam 1 tab three 20tabs Unknown 1mg Tablets times a day . MDD=3 History Medications Vitamin B6 Take one tablet by 90tabs Gui Rich, 02/24/2019 - 50mg Tablets mouth daily. Take M.D. 03/02/2019 with food. Karolina 128 1 gtt each eye bid Unknown - 2% Solution 03/02/2019 Synthroid 1 po qd 90tabs Unknown - 75mcg Tablets 02/14/2019 Omeprazole 1 po qam Unknown - 20mg Capsules 12/06/2015 Aspirin Low Dose 1 po qd 30tabs Unknown - 81mg 10/07/2016 Tablets Vitamin D-3 1 cap po daily Unknown - 1000mg 02/13/2019 Capsule Iron Supplement by mouth every day Unknown - 325(65Fe) 07/05/2018 mg Tablets Acetaminophen Extra 2 tab by mouth Unknown - Strength daily needed for 06/27/2016 500mg Tablets arthritis Vitamin C 1 by mouth twice a Unknown - 500mg Tablets day 02/13/2019 Medications Administered in Office Medication SIG Qnty Indications Ordering Provider Date Depomedrol 40MG Ruthy Tolliver M.D. 10/09/2017 Injection Inj, Regadenoson, 0.1 MG Mario Tong M.D., 03/18/2016 Injection FACC, FASNC Aminophylline Mario Tong M.D., 03/18/2016 Injection FACJunaid, FASNC Technetium TC 99M Mario Tong M.D., 03/18/2016 Tetrofosmin, Per Unit Dose Up LENI KIM To 40 Millicuries Injection Technetium TC 99M Ria Brothers M.D. 03/18/2016 Tetrofosmin, Per Unit Dose Up To 40 Millicuries Injection Vital Signs Date Vital Result Comment 03/04/2019 4:03pm Height 60 inches 5'0" Weight 174.00 lb with shoes Heart Rate 68 /min BP Systolic Sitting 110 mmHg lue reg cuff BP Diastolic Sitting 68 mmHg lue reg cuff BP Systolic Standing 110 mmHg lue reg cuff BP Diastolic Standing 60 mmHg lue reg cuff BMI (Body Mass Index) 34.0 kg/m2 Ejection Fraction 55-60% echo. 08/09/18 02/14/2019 3:16pm Height 60 inches 5'0" Weight 174.00 lb Heart Rate 64 /min BP Systolic 132 mmHg BP Diastolic 72 mmHg BMI (Body Mass Index) 34.0 kg/m2 07/08/2018 2:21pm Height 60 inches 5'0" Weight 183.00 lb Heart Rate 88 /min BP Systolic Sitting 150 mmHg manual cuff left arm BP Diastolic Sitting 80 mmHg manual cuff left arm BP Systolic Standing 148 mmHg manual cuff left arm BP Diastolic Standing 78 mmHg manual cuff left arm Pain Level 7 BMI (Body Mass Index) 35.7 kg/m2 01/22/2018 2:35pm Height 60 inches 5'0" Weight 180.75 lb with shoes Heart Rate 80 /min BP Systolic Sitting 128 mmHg Rue reg cuff BP Diastolic Sitting 60 mmHg Rue reg cuff BP Systolic Standing 122 mmHg Rue reg cuff BP Diastolic Standing 70 mmHg Rue reg cuff Respiratory Rate 16 /min BMI (Body Mass Index) 35.3 kg/m2 11/04/2017 11:29am Height 60 inches 5'0" Weight 179.00 lb Heart Rate 72 /min BP Systolic 150 mmHg BP Diastolic 60 mmHg Pain Level 10 BMI (Body Mass Index) 35.0 kg/m2 11/02/2017 11:48am Height 60 inches 5'0" Weight 179.00 lb Heart Rate 71 /min BP Systolic Sitting 136 mmHg BP Diastolic Sitting 72 mmHg Respiratory Rate 17 /min BMI (Body Mass Index) 35.0 kg/m2 10/21/2017 11:46am Height 60 inches 5'0" Weight 179.00 lb BP Systolic 126 mmHg BP Diastolic 60 mmHg Body Temperature 97.5 F Pain Level 8 BMI (Body Mass Index) 35.0 kg/m2 10/09/2017 3:27pm Height 63 inches 5'3" Weight 179.00 lb BP Systolic 148 mmHg BP Diastolic 80 mmHg Body Temperature 97.6 F BMI (Body Mass Index) 31.7 kg/m2 07/24/2017 11:29am Height 63.5 inches 5'3.50" Weight 180.00 lb w/ shoes Heart Rate 70 /min reg BP Systolic Sitting 130 mmHg Lue, lg cuff BP Diastolic Sitting 70 mmHg Lue, lg cuff Respiratory Rate 16 /min BMI (Body Mass Index) 31.4 kg/m2 Ejection Fraction 60% as of 04/2006 echo 05/28/2017 12:54pm Height 63.5 inches 5'3.50" Weight 178.25 lb with shoes Heart Rate 76 /min BP Systolic Sitting 148 mmHg Rue reg cuff BP Diastolic Sitting 66 mmHg Rue reg cuff BP Systolic Standing 142 mmHg Rue reg cuff BP Diastolic Standing 66 mmHg Rue reg cuff Respiratory Rate 16 /min BMI (Body Mass Index) 31.1 kg/m2 Ejection Fraction 60% 04/27/2006-echo 03/03/2017 11:51am Height 63.5 inches 5'3.50" Weight 176.00 lb with shoes Heart Rate 72 /min BP Systolic Sitting 134 mmHg Rue reg cuff BP Diastolic Sitting 56 mmHg Rue reg cuff BP Systolic Standing 138 mmHg Rue regc uff BP Diastolic Standing 66 mmHg Rue regc uff Respiratory Rate 16 /min BMI (Body Mass Index) 30.7 kg/m2 Ejection Fraction 60% echo 04/200601/22/2017 1:56pm Height 63.5 inches 5'3.50" Weight 172.00 lb w/ shoes Heart Rate 72 /min reg BP Systolic Sitting 138 mmHg Lue, reg cuff BP Diastolic Sitting 70 mmHg Lue, reg cuff BP Systolic Standing 130 mmHg Lue BP Diastolic Standing 66 mmHg Lue Respiratory Rate 16 /min BMI (Body Mass Index) 30.0 kg/m2 12/05/2016 12:57pm Height 63.5 inches 5'3.50" Weight 172.00 lb Heart Rate 64 /min BP Systolic Sitting 142 mmHg left arm, reg cuff BP Diastolic Sitting 74 mmHg left arm, reg cuff BP Systolic Standing 134 mmHg left arm, reg cuff BP Diastolic Standing 72 mmHg left arm, reg cuff Respiratory Rate 16 /min BMI (Body Mass Index) 30.0 kg/m2 Ejection Fraction 55-60% 05/15/16 Fernando 10/08/2016 1:54pm Height 63.5 inches 5'3.50" Weight 178.00 lb Heart Rate 68 /min BP Systolic Sitting 116 mmHg BP Diastolic Sitting 60 mmHg Respiratory Rate 16 /min BMI (Body Mass Index) 31.0 kg/m2 08/08/2016 3:08pm Height 63.5 inches 5'3.50" Weight 168.00 lb Heart Rate 78 /min BP Systolic Sitting 136 mmHg BP Diastolic Sitting 64 mmHg BMI (Body Mass Index) 29.3 kg/m2 06/27/2016 2:25pm Height 63.5 inches 5'3.50" Weight 169.00 lb with shoes Heart Rate 64 /min BP Systolic Sitting 132 mmHg Ra reg cuff BP Diastolic Sitting 64 mmHg Ra reg cuff BP Systolic Standing 132 mmHg Ra reg cuff BP Diastolic Standing 66 mmHg Ra reg cuff Respiratory Rate 17 /min BMI (Body Mass Index) 29.5 kg/m2 Ejection Fraction 60% 04/27/06 06/16/2016 10:56am Height 63.5 inches 5'3.50" Weight 170.00 lb Heart Rate 69 /min BP Systolic Sitting 130 mmHg BP Diastolic Sitting 72 mmHg Respiratory Rate 16 /min O2 % BldC Oximetry 97 % BMI (Body Mass Index) 29.6 kg/m2 06/02/2016 1:06pm Height 63.5 inches 5'3.50" Weight 170.00 lb without shoes Heart Rate 75 /min BP Systolic Sitting 110 mmHg Ra reg cuff BP Diastolic Sitting 60 mmHg Ra reg cuff BP Systolic Standing 118 mmHg Ra reg cuff BP Diastolic Standing 74 mmHg Ra reg cuff Respiratory Rate 17 /min BMI (Body Mass Index) 29.6 kg/m2 Ejection Fraction 60% date 04/27/06 ECHO 03/20/2016 4:03pm Height 63.5 inches 5'3.50" Weight 175.00 lb with shoes Heart Rate 72 /min regular BP Systolic Sitting 112 mmHg right arm reg cuff BP Diastolic Sitting 64 mmHg right arm reg cuff BP Systolic Standing 116 mmHg right arm reg cuff BP Diastolic Standing 68 mmHg right arm reg cuff Respiratory Rate 18 /min BMI (Body Mass Index) 30.5 kg/m2 12/07/2015 1:45pm Height 63.5 inches 5'3.50" Weight 173.31 lb with shoes Heart Rate 84 /min BP Systolic Sitting 132 mmHg Ra reg cuff BP Diastolic Sitting 62 mmHg Ra reg cuff BP Systolic Standing 136 mmHg Ra reg cuff BP Diastolic Standing 58 mmHg Ra reg cuff Respiratory Rate 16 /min BMI (Body Mass Index) 30.2 kg/m2 05/30/2015 10:39am Height 63.5 inches 5'3.50" Weight 180.00 lb Heart Rate 80 /min BP Systolic Sitting 130 mmHg BP Diastolic Sitting 70 mmHg Respiratory Rate 17 /min BMI (Body Mass Index) 31.4 kg/m2 04/11/2014 12:00pm Height 63.5 inches 5'3.50" Weight 184.00 lb Heart Rate 72 /min BP Systolic Standing 136 mmHg BP Diastolic Standing 64 mmHg Respiratory Rate 16 /min BMI (Body Mass Index) 32.1 kg/m2 04/12/2013 11:47am Heart Rate 72 /min BP Systolic Sitting 126 mmHg BP Diastolic Sitting 26 mmHg Respiratory Rate 15 /min Results Test Date Facility Test Result H/L Range Note CBC Auto Diff 07/12/2018 [facility] White Blood 3.7 10^3/uL N 3.5-10.[address] [place] [address] [phone] Red Blood Count 3.39 10^6/uL Low 4.00-5.40 Hemoglobin 7.1 g/dL Low 12.0-16.0 Hematocrit 23 % Low 35-47 Mean Corpuscular Volume 67 fL Low 80-97 1 Mean Corpuscular Hemoglobin 21 pg Low 27-31 Mean Corpuscular HGB Conc 31 g/dL N 31-36 Red Cell Distribution Width 19 % High 10.5-15 Platelet Count 407 10^3/uL N 150-450 Mean Platelet Volume 6.6 um3 Low 7.4-10.4 Abs Neutrophils 2.1 10^3/uL N 1.5-7.7 Abs Lymphocytes 1.0 10^3/uL N 1.0-4.8 Abs Monocytes 0.3 10^3/uL N 0-0.8 Abs Eosinophils 0.2 10^3/uL N 0-0.6 Abs Basophils 0 10^3/uL N 0-0.2 Abs Nucleated RBC 0 10^3/uL Granulocyte % 57.6 % N 38-83 Lymphocyte % 28.2 % N 25-47 Monocyte % 8.1 % High 0-7 Eosinophil % 5.0 % N 0-6 Basophil % 1.1 % N 0-2 Nucleated Red Blood Cells % 0 Comp Metabolic Panel 07/12/2018 [facility] Sodium 139 mmol/L N 135-[address] [place] [address] [phone] Potassium 4.2 mmol/L N 3.5-5.0 Chloride 104 mmol/L N 101-111 Co2 Carbon Dioxide 27 mmol/L N 22-32 Anion Gap 8 mmol/L N 2-11 Glucose 140 mg/dL High 70-100 Blood Urea Nitrogen 17 mg/dL N 6-24 Creatinine 1.02 mg/dL High 0.51-0.95 BUN/Creatinine Ratio 16.7 N 8-20 Calcium 8.7 mg/dL N 8.6-10.3 Total Protein 6.3 g/dL Low 6.4-8.9 Albumin 4.0 g/dL N 3.2-5.2 Globulin 2.3 g/dL N 2-4 Albumin/Globulin Ratio 1.7 N 1-3 Total Bilirubin 0.30 mg/dL N 0.2-1.0 Alkaline Phosphatase 90 U/L N 34-104 Alt 9 U/L N 7-52 Ast 13 U/L N 13-39 Egfr Non- 51.5 >60 Egfr 62.3 >60 2 Laboratory test 07/12/2018 [facility] B-Type 215 pg/mL High [address] [place] [address] Peptide BNP [phone] Comp Metabolic 01/27/2018 [facility] Sodium 138 mmol/L Low 139 -[address] [place] [address] [phone] Potassium 4.8 mmol/L N 3.5-5.0 Chloride 103 mmol/L N 101-111 Co2 Carbon Dioxide 27 mmol/L N 22-32 Anion Gap 8 mmol/L N 2-11 Glucose 102 mg/dL High 70-100 Blood Urea Nitrogen 18 mg/dL N 6-24 Creatinine 1.07 mg/dL High 0.51-0.95 BUN/Creatinine Ratio 16.8 N 8-20 Calcium 8.7 mg/dL N 8.6-10.3 Total Protein 6.3 g/dL Low 6.4-8.9 Albumin 3.7 g/dL N 3.2-5.2 Globulin 2.6 g/dL N 2-4 Albumin/Globulin Ratio 1.4 N 1-3 Total Bilirubin 0.30 mg/dL N 0.2-1.0 Alkaline Phosphatase 85 U/L N 34-104 Alt 9 U/L N 7-52 Ast 14 U/L N 13-39 Egfr Non- 48.9 >60 Egfr 62.8 >60 4 CBC Auto Diff 01/27/2018 [facility] White Blood 4.6 10^3/uL N 3.5-10.[address] [place] [address] [phone] Red Blood Count 3.22 10^6/uL Low 4.0-5.4 Hemoglobin 7.4 g/dL Low 12.0-16.0 Hematocrit 23 % Low 35-47 Mean Corpuscular Volume 70 fL Low 80-97 Mean Corpuscular Hemoglobin 23 pg Low 27-31 Mean Corpuscular HGB Conc 33 g/dL N 31-36 Red Cell Distribution Width 18 % High 10.5-15 Platelet Count 508 10^3/uL High 150-450 Mean Platelet Volume 6.9 um3 Low 7.4-10.4 Abs Neutrophils 2.2 10^3/uL N 1.5-7.7 Abs Lymphocytes 1.7 10^3/uL N 1.0-4.8 Abs Monocytes 0.5 10^3/uL N 0-0.8 Abs Eosinophils 0.2 10^3/uL N 0-0.6 Abs Basophils 0 10^3/uL N 0-0.2 Abs Nucleated RBC 0 10^3/uL Granulocyte % 47.2 % N 38-83 Lymphocyte % 37.1 % N 25-47 Monocyte % 10.1 % High 0-7 Eosinophil % 5.2 % N 0-6 Basophil % 0.4 % N 0-2 Nucleated Red Blood Cells % 0.1 Laboratory 01/27/2018 [facility] TSH (Thyroid Stim 5.02 N 0.34 -5.60 5 test finding [facility] Horm) mcIU/mL [place], [place] [address] [phone] Lipid Panel - 01/27/2018 [facility] Creatine 103 U/L N 10-223 6 JFM [facility] Kinase(CK) [place] [address] [phone] Lipid Profile 01/27/2018 [facility] Triglycerides 168 mg/dL 7 (Trig/Chol/HDL [facility] ) [place] [address] [phone] Cholesterol 157 mg/dL 8 HDL Cholesterol 48.3 mg/dL 9 LDL Cholesterol 75 mg/dL 10 Urinalysis Profile 05/13/2016 [facility] Urine Color Yellow [address] [place] [address] [phone] Urine Appearance Clear N Urine Specific [place] > 1.060 High 1.010-1.030 Urine pH 5.0 N 5-9 Urine Urobilinogen Negative N Negative Urine Ketones Negative N Negative Urine Protein Negative N Negative Urine Leukocytes Negative N Negative Urine Blood Negative N Negative Urine Nitrite Negative N Negative Urine Bilirubin Negative N Negative Urine Glucose Negative N Negative Type & Screen 05/13/2016 [facility] Patient Blood Type A Negative N [address] [place] [address] [phone] Antibody Screen NEGATIVE N Laboratory test 05/13/2016 [facility] Troponin-I (TnI) 0.00 ng/ mL N <0.[address] [place] [address] [phone] Lipid Profile 05/13/2016 [facility] Triglycerides 215 mg/dL N 12 (Trig/Chol/HDL) [address] [place] [address] [phone] Cholesterol 224 mg/dL N 13 HDL Cholesterol 44.7 mg/dL N 14 LDL Cholesterol 136 mg/dL N 15 Comp Metabolic Panel 05/13/2016 [facility] Sodium 135 mmol/L N 133-145 [address] [place] [address] [phone] Potassium 4.2 mmol/L N 3.5-5.0 Chloride 101 mmol/L N 101-111 Co2 Carbon Dioxide 29 mmol/L N 22-32 Anion Gap 5 mmol/L N 2-11 Glucose 95 mg/dL N 70-100 Blood Urea Nitrogen 26 mg/dL High 6-24 Creatinine 1.04 mg/dL High 0.51-0.95 BUN/Creatinine Ratio 25.0 High 8-20 Calcium 8.7 mg/dL N 8.6-10.3 Total Protein 6.5 g/dL N 6.4-8.9 Albumin 3.7 g/dL N 3.2-5.2 Globulin 2.8 g/dL N 2-4 Albumin/Globulin Ratio 1.3 N 1-3 Total Bilirubin 0.20 mg/dL N 0.2-1.0 Alkaline Phosphatase 97 U/L N 34-104 Alt 11 U/L N 7-52 Ast 15 U/L N 13-39 Egfr Non- 50.6 N >60 Egfr 65.1 N >60 16 Laboratory test 05/13/2016 [facility] Partial 27.5 seconds N 26.0-36.[address] [place] [address] PTT [phone] Inr/Protime 05/13/2016 [facility] Inr 0.91 N 0.89-1.[address] [place] [address] [phone] Laboratory test 05/13/2016 [facility] Lactic Acid 0.7 mmol/L N 0.5-2.0 [address] [place] [address] [phone] CBC Auto Diff 05/13/2016 [facility] White Blood 6.7 10^3/uL N 3.5-10.[address] [place] [address] [phone] Red Blood Count 3.81 10^6/uL Low 4.0-5.4 Hemoglobin 10.0 g/dL Low 12.0-16.0 Hematocrit 31 % Low 35-47 Mean Corpuscular Volume 81 fL N 80-97 Mean Corpuscular Hemoglobin 26 pg Low 27-31 Mean Corpuscular HGB Conc 33 g/dL N 31-36 Red Cell Distribution Width 18 % High 10.5-15 Platelet Count 345 10^3/uL N 150-450 Mean Platelet Volume 7 um3 Low 7.4-10.4 Abs Neutrophils 4.4 10^3/uL N 1.5-7.7 Abs Lymphocytes 1.4 10^3/uL N 1.0-4.8 Abs Monocytes 0.6 10^3/uL N 0-0.8 Abs Eosinophils 0.1 10^3/uL N 0-0.6 Abs Basophils 0.1 10^3/uL N 0-0.2 Abs Nucleated RBC 0 10^3/uL N Granulocyte % 66.5 % N 38-83 Lymphocyte % 21.6 % Low 25-47 Monocyte % 9.4 % High 1-9 Eosinophil % 1.7 % N 0-6 Basophil % 0.8 % N 0-2 Nucleated Red Blood Cells % 0 N 1 Consistent with Previous Results Reported on 01/27/18 2 Because ethnic data is not always readily [...] 15-29 5 Kidney failure <15 (or dialysis) 3 >100 to <200 pg/mL: likely compensated congestive heart failure (CHF) 200 to 400 pg/mL: likely moderate CHF >400 pg/mL: likely moderate to severe CHF 4 Because ethnic data is not always readily [...] 15-29 5 Kidney failure <15 (or dialysis) 5 FASTING Copy Result to: ROXANNE SANCHEZ ([id number]) 6 FASTING Copy Result to: ROXANNE SANCHEZ ([id number]) 7 Desirable: <150 Borderline High: 150-199 High: 200-499 Very High: >500 8 Desirable: <200 Borderline High: 200-239 High: >239 9 Low: <40 Desirable: 40-60 High: >60 10 Desirable: <100 Near Optimal: 100-129 Borderline High: 130-159 High: 160-189 Very High: >189 11 Reference Range and Interpretation: TnI (ng/mL) Interpretation Less Than 0.03 ng/mL Not supportive of diagnosis of GA 0.03 - 0.50 ng/mL Indeterminate: suggest serial studies if clinically indicated. Greater than 0.5 ng/mL Consistent with diagnosis of GA 12 Desirable <150 Borderline high 150-199 High 200-499 Very High >500 13 Desirable <200 Borderline high 200-239 High >239 14 Low <40 Desirable: 40-60 High: >60 15 Desirable: <100 mg/dL Near Optimal: 100-129 mg/dL Borderline High: 130-159 mg/dL High: 160-189 mg/dL Very High: >189 mg/dL 16 Because ethnic data is not always readily [...] 15-29 5 Kidney failure <15 (or dialysis) 17 [facility] Severe Sepsis and Septic Shock Management Bundle Measure requires all lactic acids initially measuring >2.0 mmol/L be repeated. Procedures Date Code Description Status 03/04/2019 19404 EKG Tracing & Interpretation Completed 2019 39005 Implantable Cardio System Loop Recorder Sys Remota Data Completed Acquistio 2019 91867 Interrogation Dev Loop Recorder Incl Physician Completed Analysis,Rev,Repor 01/06/2019 66547 Implantable Cardio System Loop Recorder Sys Remota Data Completed Acquistio 01/06/2019 05701 Interrogation Dev Loop Recorder Incl Physician Completed Analysis,Rev,Repor 12/06/2018 [id number] Implantable Cardio System Loop Recorder Sys Remota Data Completed Acquistio 12/06/2018 23816 Interrogation Dev Loop Recorder Incl Physician Completed Analysis,Rev,Repor 11/05/2018 [id number] Implantable Cardio System Loop Recorder Sys Remota Data Completed Acquistio 11/05/2018 56965 Interrogation Dev Loop Recorder Incl Physician Completed Analysis,Rev,Repor 10/05/2018 40942 Interrogation Dev Loop Recorder Incl Physician Completed Analysis,Rev,Repor 10/05/2018 [id number] Implantable Cardio System Loop Recorder Sys Remota Data Completed Acquistio 09/04/2018 97069 Implantable Cardio System Loop Recorder Sys Remota Data Completed Acquistio 09/04/2018 36269 Interrogation Dev Loop Recorder Incl Physician Completed Analysis,Rev,Repor 08/09/2018 19631 ECHO Transthoracic, Real-Time 2D With Doppler And Color Completed Flow 08/09/2018 68383 ECHO Transthoracic, Real-Time 2D With Doppler And Color Completed Flow 08/04/2018 68104 Implantable Cardio System Loop Recorder Sys Remota Data Completed Acquistio 08/04/2018 90225 Interrogation Dev Loop Recorder Incl Physician Completed Analysis,Rev,Repor 07/08/2018 07708 EKG Tracing & Interpretation Completed 07/04/2018 95624 Implantable Cardio System Loop Recorder Sys Remota Data Completed Acquistio 07/04/2018 92552 Interrogation Dev Loop Recorder Incl Physician Completed Analysis,Rev,Repor 06/03/2018 [id number] Interrogation Dev Loop Recorder Incl Physician Completed Analysis,Rev,Repor 06/03/2018 07774 Implantable Cardio System Loop Recorder Sys Remota Data Completed Acquistio 05/03/2018 43923 Implantable Cardio System Loop Recorder Sys Remota Data Completed Acquistio 05/03/2018 67907 Interrogation Dev Loop Recorder Incl Physician Completed Analysis,Rev,Repor 04/02/2018 41259 Implantable Cardio System Loop Recorder Sys Remota Data Completed Acquistio 04/02/2018 87687 Interrogation Dev Loop Recorder Incl Physician Completed Analysis,Rev,Repor 03/02/2018 [id number] Implantable Cardio System Loop Recorder Sys Remota Data Completed Acquistio 03/02/2018 82318 Interrogation Dev Loop Recorder Incl Physician Completed Analysis,Rev,Repor 01/30/2018 [id number] Implantable Cardio System Loop Recorder Sys Remota Data Completed Acquistio 01/30/2018 94035 Interrogation Dev Loop Recorder Incl Physician Completed Analysis,Rev,Repor 01/22/2018 66514 EKG Tracing & Interpretation Completed 12/30/2017 03494 Interrogation Dev Loop Recorder Incl Physician Completed Analysis,Rev,Repor 12/30/2017 85951 Implantable Cardio System Loop Recorder Sys Remota Data Completed Acquistio 11/29/2017 77784 Implantable Cardio System Loop Recorder Sys Remota Data Completed Acquistio 11/29/2017 56056 Interrogation Dev Loop Recorder Incl Physician Completed Analysis,Rev,Repor 10/29/2017 67414 Implantable Cardio System Loop Recorder Sys Remota Data Completed Acquistio 10/29/2017 18654 Interrogation Dev Loop Recorder Incl Physician Completed Analysis,Rev,Repor 10/09/2017 39474 Inject/Drain Joint/Bursa Major W/O US Completed 09/28/2017 38029 Implantable Cardio System Loop Recorder Sys Remota Data Completed Acquistio 09/28/2017 59764 Interrogation Dev Loop Recorder Incl Physician Completed Analysis,Rev,Repor 08/28/2017 13686 Interrogation Dev Loop Recorder Incl Physician Completed Analysis,Rev,Repor 08/28/2017 [id number] Implantable Cardio System Loop Recorder Sys Remota Data Completed Acquistio 07/28/2017 04023 Implantable Cardio System Loop Recorder Sys Remota Data Completed Acquistio 07/28/2017 10933 Interrogation Dev Loop Recorder Incl Physician Completed Analysis,Rev,Repor 06/27/2017 40364 Implantable Cardio System Loop Recorder Sys Remota Data Completed Acquistio 06/27/2017 53626 Interrogation Dev Loop Recorder Incl Physician Completed Analysis,Rev,Repor 05/28/2017 69295 EKG Tracing & Interpretation Completed 05/27/2017 91529 Implantable Cardio System Loop Recorder Sys Remota Data Completed Acquistio 05/27/2017 13287 Interrogation Dev Loop Recorder Incl Physician Completed Analysis,Rev,Repor 04/26/2017 [id number] Implantable Cardio System Loop Recorder Sys Remota Data Completed Acquistio 04/26/2017 49479 Interrogation Dev Loop Recorder Incl Physician Completed Analysis,Rev,Repor 03/26/2017 58027 Interrogation Dev Loop Recorder Incl Physician Completed Analysis,Rev,Repor 03/26/2017 94569 Implantable Cardio System Loop Recorder Sys Remota Data Completed Acquistio 02/23/2017 21927 Implantable Cardio System Loop Recorder Sys Remota Data Completed Acquistio 02/23/2017 90141 Interrogation Dev Loop Recorder Incl Physician Completed Analysis,Rev,Repor 01/23/2017 [id number] Implantable Cardio System Loop Recorder Sys Remota Data Completed Acquistio 01/23/2017 61482 Interrogation Dev Loop Recorder Incl Physician Completed Analysis,Rev,Repor 01/22/2017 14499 EKG Tracing & Interpretation Completed 12/23/2016 45575 Implantable Cardio System Loop Recorder Sys Remota Data Completed Acquistio 12/23/2016 60364 Interrogation Dev Loop Recorder Incl Physician Completed Analysis,Rev,Repor 12/05/2016 99933 EKG Tracing & Interpretation Completed 11/22/2016 51595 Interrogation Dev Loop Recorder Incl Physician Completed Analysis,Rev,Repor 11/22/2016 52449 Implantable Cardio System Loop Recorder Sys Remota Data Completed [facility] 10/22/2016 79073 Implantable Cardio System Loop Recorder Sys Remota Data Completed [facility] 10/22/2016 62782 Interrogation Dev Loop Recorder Incl Physician Completed Analysis,Rev,Repor 09/21/2016 77042 Implantable Cardio System Loop Recorder Sys Remota Data Completed [facility] 09/21/2016 03597 Interrogation Dev Loop Recorder Incl Physician Completed Analysis,Rev,Repor 08/21/2016 25800 Implantable Cardio System Loop Recorder Sys Remota Data Completed [facility] 08/21/2016 46319 Interrogation Dev Loop Recorder Incl Physician Completed Analysis,Rev,Repor 08/08/2016 66433 Nerve Conduction 07-08 Studies Completed 07/21/2016 30091 Interrogation Dev Loop Recorder Incl Physician Completed Analysis,Rev,Repor 07/21/2016 77547 Implantable Cardio System Loop Recorder Sys Remota Data Completed [facility] 06/19/2016 47766 Implant Cardiac Loop Recorder Completed 06/02/2016 07766 EKG Tracing & Interpretation Completed 05/15/2016 17358 Color Flow Doppler/Interp & Reprt Completed 05/15/2016 00819 Pulse Wave/Continuous-Interp.RPT Completed 05/15/2016 71117 Echocardiography, Transesophageal, Real Time W/Image 2D Completed W/W/O M-M 05/14/2016 95673 EKG, Interpretation Only Completed 03/18/2016 07190 Stress Test Completed 03/18/2016 18067 Myocardial Perfusion Imaging Tomographic (Spect) Multiple Completed Studies 12/07/2015 23721 EKG Tracing & Interpretation Completed Encounters Type Date Location Provider Dx Diagnosis Office Visit 03/04/2019 [facility] Ria Brothers, I63.9 Cerebral 4:00p Of Brendan Ontiveros infarction, unspecified I10 Essential (primary) hypertension E78.5 Hyperlipidemia, unspecified 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, subs Z79.899 Other long term care social worker (current) drug therapy Office Visit 12/25/2018 [facility] King S06.360A Traum hemor cereb, 11:04a Assoc,noah Salmeron PA w/o loss of Hospitalists consciousness, init W19.xxxA Unspecified fall, initial encounter E03.9 Hypothyroidism, unspecified D64.9 Anemia, unspecified I10 Essential (primary) hypertension Office 12/24/2018 [facility] S06.340A Traum hemor right Visit 7:00a Services Of Brendan Mathias MD cerebrum w/o loss of consciousness, init Office 12/24/2018 [facility] King Salmeron, S06.360A Traum hemor cereb, Visit 11:04a Assoc,noah PA w/o loss of Hospitalists consciousness, init Z86.73 Prsnl hx of TIA (TIA), and cereb infrc w/o resid deficits I10 Essential (primary) hypertension Office Visit 12/23/2018 [facility] Brittny S06.360A Traum hemor cereb, 11:03a Assocnoah Root, DO w/o loss of Hospitalists consciousness, init I48.91 Unspecified atrial fibrillation I10 Essential (primary) hypertension Z86.73 Prsnl hx of TIA (TIA), and cereb infrc w/o resid deficits Office Visit 11/23/2018 9:54a [facility] Esvin Polanco, N39.0 Urinary tract Assocnoah MD infection, site Hospitalists not specified B95.2 Enterococcus as the cause of diseases classified elsewhere J01.90 Acute sinusitis, unspecified Office Visit 11/22/2018 9:53a [facility] Esvin Polanco, N39.0 Urinary tract Assocnoah MD infection, site Hospitalists not specified J01.90 Acute sinusitis, unspecified R50.9 Fever, unspecified R10.9 Unspecified abdominal pain K58.9 Irritable bowel syndrome without diarrhea F41.8 Other specified anxiety disorders Office Visit 11/21/2018 9:53a [facility] Esvin Polanco, N39.0 Urinary tract Assocnoah MD infection, site Hospitalists not specified J01.90 Acute sinusitis, unspecified R50.9 Fever, unspecified R10.9 Unspecified abdominal pain K58.9 Irritable bowel syndrome without diarrhea Office Visit 11/20/2018 [facility] Shayla Contreras J18.1 Lobar pneumonia, 9:52a Assoc,pc Janet, RISK COMPLIANCE ANALYST unspecified Hospitalists organism R41.82 Altered mental status, unspecified I10 Essential (primary) hypertension D64.9 Anemia, unspecified E03.9 Hypothyroidism, unspecified K21.9 Gastro-esophageal reflux disease without esophagitis Office Visit 07/08/2018 2:30p [facility] SDiana I49.1 Atrial premature Cardiology Of Catalina Ward depolarization [facility] I10 Essential (primary) hypertension 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 M.D. 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 M.D. knee M17.12 Unilateral primary osteoarthritis, left knee M25.462 Effusion, left knee Office Visit 10/09/2017 2:45p [facility] Ruthy Tolliver M25.562 Pain in left Of C.M.A. M.D. knee M17.12 Unilateral primary osteoarthritis, left knee M25.462 Effusion, left knee Office Visit 07/24/2017 11:40a [facility] Ria Deneen, I63.9 Cerebral Of [employer] [facility] M.D. infarction, unspecified I49.1 Atrial premature depolarization I10 Essential (primary) hypertension E78.2 Mixed hyperlipidemia I49.5 Sick sinus syndrome Office Visit 05/28/2017 1:00p [facility] Ria Brothers, R00.0 Tachycardia, Of [employer] M.D. unspecified F41.9 Anxiety disorder, unspecified I49.1 Atrial premature depolarization I49.5 Sick sinus syndrome Office Visit 03/03/2017 11:45a [facility] Ria Brothers, Z95.818 Presence of Of [employer] M.D. other cardiac implants and grafts I49.5 Sick sinus syndrome Office Visit 01/22/2017 2:00p [facility] Ria Brothers, I49.5 Sick sinus Of [facility] AT [facility] M.D. syndrome I49.1 Atrial premature depolarization R00.2 Palpitations Z86.73 Prsnl hx of TIA (TIA), and cereb infrc w/o resid deficits D64.9 Anemia, unspecified Office Visit 12/05/2016 1:00p [facility] Ria Brothers, I63.9 Cerebral Of [facility] M.D. 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 infarction, unspecified R00.2 Palpitations E78.2 Mixed hyperlipidemia I10 Essential (primary) hypertension Office Visit 05/15/2016 [facility]hospital[facility] Josie I63.9 Cerebral 1:30p [facility] [place] infarction, unspecified I10 Essential (primary) hypertension E78.5 Hyperlipidemia, unspecified Z79.82 long term care social worker (current) use of aspirin Office Visit 05/15/2016 [facility] Shayladarnell Contreras G45.9 Transient 8:43a Assoc,noah Gonzales NP cerebral Hospitalists ischemic attack, unspecified E03.9 Hypothyroidism, unspecified Office Visit 05/14/2016 [facility] Josie I63.9 Cerebral 1:29p [facility] [place] infarction, unspecified I10 Essential (primary) hypertension E78.5 Hyperlipidemia, unspecified Z79.82 long term care social worker (current) use of aspirin Office Visit 05/13/2016 8:42a [facility] Isiah Erasmo, G45.9 Transient Assoc,noah Ontiveros cerebral ischemic Hospitalists attack, unspecified E03.9 Hypothyroidism, unspecified Office Visit 03/20/2016 4:00p [facility] Ria Brothers, R07.9 Chest pain, Of [facility] M.D. unspecified I10 Essential (primary) hypertension D64.9 Anemia, unspecified E03.9 Hypothyroidism, unspecified Office Visit 12/07/2015 2:00p [facility] Ria Brothers, R07.9 Chest pain, Of [employer] M.D. unspecified M79.621 Pain in right upper arm R06.02 Shortness of breath Office Visit 05/30/2015 10:30a [facility] Bella Mcintosh 350.1 Neuralgia Services Of Brendan Rich M.D. Trigeminal 724.2 Lumbago 781.2 Gait Abnormality Office Visit 04/11/2014 11:45a [facility] Bella Mcintosh 350.1 Neuralgia Services Of Brendan Rich M.D. Trigeminal Office Visit 04/12/2013 11:45a [facility] Mc[facility] 350.1 Neuralgia Services Of Brendan Rich M.D. Trigeminal Office Visit 07/14/2012 11:45a [facility] Bella Mcintosh 350.1 Neuralgia Services Of Brendan Rich M.D. Trigeminal 354.0 Carpal Tunnel Syndrome 785.9 Cardiovascular Symptoms Other Plan of Treatment Future Appointment(s):09/15/2019 1:30 pm - Ria Brothers M.D. at [facility]03/04/2019 - Ria Brothers M.D.I63.9 Cerebral infarction, unspecifiedComments:Continue Plavix (clopidegrel)NO EVENTS seen on your monitor- good news.I10 Essential (primary) hypertensionComments:Well controlledContinue QgpjgfgoE63.5 Hyperlipidemia, unspecifiedComments:Good control last year.Labs given to update.Z95.818 Presence of other cardiac implants and graftsComments: Your battery will likely run out at the end of this year, we will let you know.Follow up:6 months
--- OUTSIDE RECORDS SUMMARY | 2019-03-06 20:16 | XMS REPORT | Continuity of Care Document ---
:1935 External Reference #:[id number] Author Name Kylah Cisse Care Team Providers Name Role Phone Roxanne Sanchez PA Primary Care Physician Unavailable Payers Date Identification Numbers Payment Provider Subscriber Effective: 1998 Policy Number: [id number] Medicare Emma Vergara PayID: [id number] [address] [place] [address] Effective: 2012 Policy Number: [id number] Facets Emma Conradálvaro PayID: [id number] [address] [address] [place] [address] Policy Number: [id number] [facility] Emma Vergara Group Number: [id number] [address] PayID: [id number] [place] [address] Problems Active Problems Provider Date Trigeminal neuralgia [...] Sister Cerebrovascular Accident (CVA) ? arrhythmia, in [place], occured 2017. Social History Type Date Description Comments Sex Unknown Lives With Occupation Retired Tobacco Use Start: Unknown Never Smoked Cigarettes Smoking Status Reviewed: 02/14/19 Never Smoked Cigarettes ETOH Use Never used alcohol Tobacco Use Start: Unknown Patient has never smoked Recreational Drug Use Denies Drug Use Exercise Type/Frequency Exercises sporadically Allergies, Adverse Reactions, Alerts Active Allergies Reaction Severity Comments Date Relafen 04/12/2013 Sulfa Antibiotics 04/12/2013 Medications Active Medications SIG Qnty Indications Ordering Date Provider Vitamin B6 Take one tablet 90tabs Gui S. 02/24/2019 50mg Tablets by mouth daily. Rama Rich Take with food. Lasix take for leg Unknown pain as needed Synthroid 1 by mouth every Unknown 88mcg Tablets day Acetaminophen 2 tablets by Unknown 325mg mouth every 6 Tablets hours as needed for pain/fever Clopidogrel Bisulfate 1 by mouth every 90tabs Gui S. day Rama Rich 75mg Tablets Atorvastatin Calcium take 1 tablet at Unknown 20mg bedtime Tablets Vitamin B-12 1 tab po every Unknown Natural day 500mcg Tablets Atenolol 1 by mouth every 60tabs Qutaybwhit S. 50mg Tablets morning and 1 Rama Tubbs tab every evening Carbamazepine 1 tab by mouth 180tabs Gui S. 200mg twice a day Rama Rich Tablets Karolina 128 1 gtt each eye Unknown 2% Solution bid Refresh Liquigel 1 gtt each eye Unknown 1% prn Solution Lexapro 1 po bid 30tabs Unknown 10mg Tablets Clonazepam 1 tab three 20tabs Unknown 1mg Tablets times a day . MDD=3 History Medications Synthroid 1 po qd 90tabs Unknown - 75mcg Tablets 02/14/2019 Omeprazole 1 po qam Unknown - 20mg Capsules 12/06/2015 Aspirin Low Dose 1 po qd 30tabs Unknown - 81mg Tablets 10/07/2016 Vitamin D-3 1 cap po daily Unknown - 1000mg Capsule 02/13/2019 Iron Supplement by mouth every day Unknown - 325(65Fe) mg 07/05/2018 Tablets Acetaminophen Extra 2 tab by mouth daily Unknown - Strength needed for arthritis 06/27/2016 500mg Tablets Vitamin C 1 by mouth twice a Unknown - 500mg Tablets day 02/13/2019 Medications Administered in Office Medication SIG Qnty Indications Ordering Provider Date Depomedrol 40MG Ruthy Tolliver M.D. 10/09/2017 Injection Inj, Regadenoson, 0.1 MG Mario Tong M.D., 03/18/2016 Injection FACC, FASNC Aminophylline Mario Tong M.D., 03/18/2016 Injection FACC, FASNC Technetium TC 99M Mario Tong M.D., 03/18/2016 Tetrofosmin, Per Unit Dose Up FACC, FASNC To 40 Millicuries Injection Technetium TC 99M Ria Brothers M.D. 03/18/2016 Tetrofosmin, Per Unit Dose Up To 40 Millicuries Injection Vital Signs Date Vital Result Comment 02/14/2019 3:16pm Height 60 inches 5'0" Weight [...] Range Note CBC Auto Diff 07/12/2018 [facility] White Blood 3.7 10^3/uL N 3.5-10.[address] [place] [address] [phone] Red Blood Count 3.39 10^6/uL Low 4.00-5.40 [...] % 0 Comp Metabolic Panel 07/12/2018 [facility] Sodium 139 mmol/L N 135-[address] [place] [address] [phone] Potassium 4.2 mmol/L N 3.5-5.0 Chloride 104 [...] 62.3 >60 2 Laboratory test 07/12/2018 [facility] B-Type 215 pg/mL High [address] [place] [place] [address] Peptide BNP [phone] Comp Metabolic 01/27/2018 [facility] Sodium 138 mmol/L Low 139 -[address] [place] [address] [phone] Potassium 4.8 mmol/L N 3.5-5.0 Chloride 103 [...] >60 4 CBC Auto Diff 01/27/2018 [facility] White Blood 4.6 10^3/uL N 3.5-10.[address] [place] [address] [phone] Red Blood Count 3.22 10^6/uL Low 4.0-5.4 [...] Blood Cells % 0.1 Laboratory 01/27/2018 [facility] TSH (Thyroid Stim 5.02 N 0.34 -5.60 5 test finding [facility] Horm) mcIU/[place] [address] [phone] Lipid Panel - 01/27/2018 [facility] Creatine 103 U/L N 10-223 6 JFM [facility] Kinase(CK) [place] [address] [phone] Lipid Profile 01/27/2018 [facility] Triglycerides 168 mg/dL 7 (Trig/Chol/HDL ) [place] [address] [phone] Cholesterol 157 mg/dL 8 HDL Cholesterol 48.3 mg/dL 9 LDL Cholesterol 75 mg/dL 10 Urinalysis Profile 05/13/2016 [facility] Urine Color Yellow N [address] [place] [address] [phone] Urine Appearance Clear N Urine Specific [place] > 1.060 High 1.010-1.030 Urine pH 5.0 N 5-9 Urine Urobilinogen Negative N Negative Urine Ketones Negative N Negative Urine Protein Negative N Negative Urine Leukocytes Negative N Negative Urine Blood Negative N Negative Urine Nitrite Negative N Negative Urine Bilirubin Negative N Negative Urine Glucose Negative N Negative Type & Screen 05/13/2016 [facility] Patient Blood Type A Negative N [address] [place] [address] [phone] Antibody Screen NEGATIVE N Laboratory test 05/13/2016 [facility] Troponin-I (TnI) 0.00 ng/ mL N <0.03 11 finding [address] [place] [address] [phone] Lipid Profile 05/13/2016 [facility] Triglycerides 215 mg/dL N 12 (Trig/Chol/HDL) [address] [place] [address] [phone] Cholesterol 224 mg/dL N 13 HDL Cholesterol 44.7 mg/dL N 14 LDL Cholesterol 136 mg/dL N 15 Comp Metabolic Panel 05/13/2016 [facility] Sodium 135 mmol/L N 133-145 [address] [place] [address] [phone] Potassium 4.2 mmol/L N 3.5-5.0 Chloride 101 [...] N >60 16 Laboratory test 05/13/2016 [facility] Partial 27.5 seconds N 26.0-36.3 finding [address] [facility] [place] [address] PTT [phone] Inr/Protime 05/13/2016 [facility] Inr 0.91 N 0.89-1.11 [place] [address] [phone] Laboratory test 05/13/2016 [facility] Lactic Acid 0.7 mmol/L N 0.5-2.0 17 finding [facility] [address] [phone] CBC Auto Diff 05/13/2016 [facility] White Blood 6.7 10^3/uL N 3.5-10.[address] [place] [address] [phone] Red Blood Count 3.81 10^6/uL Low 4.0-5.4 [...] 5 FASTING Copy Result to: ROXANNE SANCHEZ ([id number]) 6 FASTING Copy Result to: ROXANNE SANCHEZ ([id number]) 7 Desirable: <150 Borderline High: 150-199 High: 200-499 Very High: >500 8 Desirable: <200 Borderline High: 200-239 High: >239 9 Low: <40 Desirable: 40-60 High: >60 10 Desirable: <100 Near Optimal: 100-129 Borderline High: 130-159 High: 160-189 Very High: >189 11 Reference Range and Interpretation: TnI (ng/mL) Interpretation Less Than 0.03 ng/mL Not supportive of diagnosis of MO 0.03 - 0.50 ng/mL Indeterminate: suggest serial studies if clinically indicated. Greater than 0.5 ng/mL Consistent with diagnosis of MO 12 Desirable <150 Borderline high 150-199 High [...] 5 Kidney failure <15 (or dialysis) 17 [facility] Severe Sepsis and Septic Shock Management Bundle Measure requires all lactic acids initially measuring >2.0 mmol/L be repeated. Procedures Date Code Description Status 2019 90128 Implantable Cardio System Loop Recorder Sys Remota Data Completed Acquistio 2019 39466 Interrogation Dev Loop Recorder Incl Physician Completed Analysis,Rev,Repor 01/06/2019 31392 Implantable Cardio System Loop Recorder Sys Remota Data Completed Acquistio 01/06/2019 11236 Interrogation Dev Loop Recorder Incl Physician Completed Analysis,Rev,Repor 12/06/2018 09681 Implantable Cardio System Loop Recorder Sys Remota Data Completed Acquistio 12/06/2018 46281 Interrogation Dev Loop Recorder Incl Physician Completed Analysis,Rev,Repor 11/05/2018 15228 Implantable Cardio System Loop Recorder Sys Remota Data Completed Acquistio 11/05/2018 92354 Interrogation Dev Loop Recorder Incl Physician Completed Analysis,Rev,Repor 10/05/2018 47080 Implantable Cardio System Loop Recorder Sys Remota Data Completed Acquistio 10/05/2018 75128 Interrogation Dev Loop Recorder Incl Physician Completed Analysis,Rev,Repor 09/04/2018 73698 Interrogation Dev Loop Recorder Incl Physician Completed Analysis,Rev,Repor 09/04/2018 05380 Implantable Cardio System Loop Recorder Sys Remota Data Completed Acquistio 08/09/2018 35770 ECHO Transthoracic, Real-Time 2D With Doppler And Color Completed Flow 08/09/2018 66535 ECHO Transthoracic, Real-Time 2D With Doppler And Color Completed Flow 08/04/2018 18570 Implantable Cardio System Loop Recorder Sys Remota Data Completed Acquistio 08/04/2018 52310 Interrogation Dev Loop Recorder Incl Physician Completed Analysis,Rev,Repor 07/08/2018 87453 EKG Tracing & Interpretation Completed 07/04/2018 81545 Implantable Cardio System Loop Recorder Sys Remota Data Completed Acquistio 07/04/2018 04093 Interrogation Dev Loop Recorder Incl Physician Completed Analysis,Rev,Repor 06/03/2018 69327 Interrogation Dev Loop Recorder Incl Physician Completed Analysis,Rev,Repor 06/03/2018 25304 Implantable Cardio System Loop Recorder Sys Remota Data Completed Acquistio 05/03/2018 58857 Implantable Cardio System Loop Recorder Sys Remota Data Completed Acquistio 05/03/2018 21302 Interrogation Dev Loop Recorder Incl Physician Completed Analysis,Rev,Repor 04/02/2018 99241 Implantable Cardio System Loop Recorder Sys Remota Data Completed Acquistio 04/02/2018 81332 Interrogation Dev Loop Recorder Incl Physician Completed Analysis,Rev,Repor 03/02/2018 27530 Implantable Cardio System Loop Recorder Sys Remota Data Completed Acquistio 03/02/2018 33143 Interrogation Dev Loop Recorder Incl Physician Completed Analysis,Rev,Repor 01/30/2018 17787 Implantable Cardio System Loop Recorder Sys Remota Data Completed Acquistio 01/30/2018 58430 Interrogation Dev Loop Recorder Incl Physician Completed Analysis,Rev,Repor 01/22/2018 56994 EKG Tracing & Interpretation Completed 12/30/2017 14463 Interrogation Dev Loop Recorder Incl Physician Completed Analysis,Rev,Repor 12/30/2017 85523 Implantable Cardio System Loop Recorder Sys Remota Data Completed Acquistio 11/29/2017 28191 Implantable Cardio System Loop Recorder Sys Remota Data Completed Acquistio 11/29/2017 95136 Interrogation Dev Loop Recorder Incl Physician Completed Analysis,Rev,Repor 10/29/2017 95205 Implantable Cardio System Loop Recorder Sys Remota Data Completed Acquistio 10/29/2017 60778 Interrogation Dev Loop Recorder Incl Physician Completed Analysis,Rev,Repor 10/09/2017 04535 Inject/Drain Joint/Bursa Major W/O US Completed 09/28/2017 00712 Implantable Cardio System Loop Recorder Sys Remota Data Completed Acquistio 09/28/2017 04330 Interrogation Dev Loop Recorder Incl Physician Completed Analysis,Rev,Repor 08/28/2017 74479 Interrogation Dev Loop Recorder Incl Physician Completed Analysis,Rev,Repor 08/28/2017 79403 Implantable Cardio System Loop Recorder Sys Remota Data Completed Acquistio 07/28/2017 79414 Implantable Cardio System Loop Recorder Sys Remota Data Completed Acquistio 07/28/2017 74313 Interrogation Dev Loop Recorder Incl Physician Completed Analysis,Rev,Repor 06/27/2017 78735 Implantable Cardio System Loop Recorder Sys Remota Data Completed Acquistio 06/27/2017 72336 Interrogation Dev Loop Recorder Incl Physician Completed Analysis,Rev,Repor 05/28/2017 43349 EKG Tracing & Interpretation Completed 05/27/2017 92240 Implantable Cardio System Loop Recorder Sys Remota Data Completed Acquistio 05/27/2017 63889 Interrogation Dev Loop Recorder Incl Physician Completed Analysis,Rev,Repor 04/26/2017 32112 Implantable Cardio System Loop Recorder Sys Remota Data Completed Acquistio 04/26/2017 02467 Interrogation Dev Loop Recorder Incl Physician Completed Analysis,Rev,Repor 03/26/2017 26067 Interrogation Dev Loop Recorder Incl Physician Completed Analysis,Rev,Repor 03/26/2017 00049 Implantable Cardio System Loop Recorder Sys Remota Data Completed Acquistio 02/23/2017 92457 Implantable Cardio System Loop Recorder Sys Remota Data Completed Acquistio 02/23/2017 29187 Interrogation Dev Loop Recorder Incl Physician Completed Analysis,Rev,Repor 01/23/2017 64839 Implantable Cardio System Loop Recorder Sys Remota Data Completed Acquistio 01/23/2017 46467 Interrogation Dev Loop Recorder Incl Physician Completed Analysis,Rev,Repor 01/22/2017 23756 EKG Tracing & Interpretation Completed 12/23/2016 80941 Implantable Cardio System Loop Recorder Sys Remota Data Completed Acquistio 12/23/2016 50393 Interrogation Dev Loop Recorder Incl Physician Completed Analysis,Rev,Repor 12/05/2016 72716 EKG Tracing & Interpretation Completed 11/22/2016 90894 Interrogation Dev Loop Recorder Incl Physician Completed Analysis,Rev,Repor 11/22/2016 92002 Implantable Cardio System Loop Recorder Sys Remota Data Completed Acquistio 10/22/2016 62394 Implantable Cardio System Loop Recorder Sys Remota Data Completed Acquistio 10/22/2016 03342 Interrogation Dev Loop Recorder Incl Physician Completed Analysis,Rev,Repor 09/21/2016 02015 Implantable Cardio System Loop Recorder Sys Remota Data Completed Acquistio 09/21/2016 11959 Interrogation Dev Loop Recorder Incl Physician Completed Analysis,Rev,Repor 08/21/2016 02962 Implantable Cardio System Loop Recorder Sys Remota Data Completed Acquistio 08/21/2016 60832 Interrogation Dev Loop Recorder Incl Physician Completed Analysis,Rev,Repor 08/08/2016 48648 Nerve Conduction 07-08 Studies Completed 07/21/2016 67352 Interrogation Dev Loop Recorder Incl Physician Completed Analysis,Rev,Repor 07/21/2016 74286 Implantable Cardio System Loop Recorder Sys Remota Data Completed Acquistio 06/19/2016 44990 Implant Cardiac Loop Recorder Completed 06/02/2016 20992 EKG Tracing & Interpretation Completed 05/15/2016 34844 Color Flow Doppler/Interp & Reprt Completed 05/15/2016 58892 Pulse Wave/Continuous-Interp.RPT Completed 05/15/2016 79004 Echocardiography, Transesophageal, Real Time W/Image 2D Completed W/W/O M-M 05/14/2016 55598 EKG, Interpretation Only Completed 03/18/2016 00157 Stress Test Completed 03/18/2016 23529 Myocardial Perfusion Imaging Tomographic (Spect) Multiple Completed Studies 12/07/2015 89048 EKG Tracing & Interpretation Completed Encounters Type Date Location Provider Dx Diagnosis Office Visit 02/14/2019 [facility] Gui SDiana G50.0 Trigeminal 2:45p Services Of Brendan Rich M.D. 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, subs Z79.899 Other assisted (current) drug therapy Office Visit 12/25/2018 [facility] King S06.360A Traum hemor cereb, 11:04a Assoc,[place] Syed w/o loss of Hospitalists consciousness, init W19.xxxA Unspecified fall, initial encounter E03.9 Hypothyroidism, unspecified D64.9 Anemia, unspecified I10 Essential (primary) hypertension Office 12/24/2018 [facility] Vassilios S06.340A Traum hemor right Visit 7:00a Services Of Brendan Mathias MD cerebrum w/o loss of consciousness, init Office 12/24/2018 [facility] King Salmeron, S06.360A Traum hemor cereb, Visit 11:04a Assoc,pc PA w/o loss of Hospitalists consciousness, init Z86.73 Prsnl hx of TIA (TIA), and cereb infrc w/o resid deficits I10 Essential (primary) hypertension Office Visit 12/23/2018 [facility] Brittny S06.360A Traum hemor cereb, 11:03a Assoc,pc Rooth, DO w/o loss of Hospitalists consciousness, init I48.91 Unspecified atrial fibrillation I10 Essential (primary) hypertension Z86.73 Prsnl hx of TIA (TIA), and cereb infrc w/o resid deficits Office Visit 11/23/2018 9:54a [facility] Esvin Polanco, N39.0 Urinary tract Assoc,noah DELONG infection, site Hospitalists not specified B95.2 Enterococcus as the cause of diseases classified elsewhere J01.90 Acute sinusitis, unspecified Office Visit 11/22/2018 9:53a [facility] Esvin Ploanco, N39.0 Urinary tract Assoc,noah DELONG infection, site Hospitalists not specified J01.90 Acute sinusitis, unspecified R50.9 Fever, unspecified R10.9 Unspecified abdominal pain K58.9 Irritable bowel syndrome without diarrhea F41.8 Other specified anxiety disorders Office Visit 11/21/2018 9:53a [facility] Esvin Polanco, N39.0 Urinary tract Assoc,noah DELONG infection, site Hospitalists not specified J01.90 Acute sinusitis, unspecified R50.9 Fever, unspecified R10.9 Unspecified abdominal pain K58.9 Irritable bowel syndrome without diarrhea Office Visit 11/20/2018 [facility] Shayla Youngsamjoleen J18.1 Lobar pneumonia, 9:52a Assoc,noah Gonzales, JENN unspecified Hospitalists organism R41.82 Altered mental status, unspecified I10 Essential (primary) hypertension D64.9 Anemia, unspecified E03.9 Hypothyroidism, unspecified K21.9 Gastro-esophageal reflux disease without esophagitis Office Visit 07/08/2018 2:30p [facility] Qi SDiana I49.1 Atrial premature Cardiology Of Radha Ward. 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 infarction, unspecified I49.1 Atrial premature depolarization E78.2 Mixed hyperlipidemia Office Visit 11/04/2017 11:15a [facility] Ruthy Tolliver, M25.562 Pain in left Of C.M.A. M.D. knee M17.12 Unilateral primary osteoarthritis, left knee M25.462 Effusion, left knee S83.522D Sprain of posterior cruciate ligament of left knee, subs Office Visit 11/02/2017 11:45a [facility] Gui S. G50.0 Trigeminal Services Of [facility] Rama Rich neuralgia M13.0 Polyarthritis, unspecified Z79.899 Other assisted (current) drug therapy Z86.73 Prsnl hx of TIA (TIA), and cereb infrc w/o resid deficits Office Visit 10/21/2017 11:15a [facility] Ruthy Tolliver, M25.562 Pain in left Of C.M.A. M.D. knee M17.12 Unilateral primary osteoarthritis, left knee M25.462 Effusion, left knee Office Visit 10/09/2017 2:45p [facility] Ruthy Tolliver, M25.562 Pain in left Of C.M.A. M.D. knee M17.12 Unilateral primary osteoarthritis, left knee M25.462 Effusion, left knee Office Visit 07/24/2017 11:40a [facility] Ria Brothers, I63.9 Cerebral Of [facility] AT [facility] M.D. infarction, unspecified I49.1 Atrial premature depolarization I10 Essential (primary) hypertension E78.2 Mixed hyperlipidemia I49.5 Sick sinus syndrome Office Visit 05/28/2017 1:00p [facility] Ria Brothers, R00.0 Tachycardia, Of [facility] M.D. unspecified F41.9 Anxiety disorder, unspecified I49.1 Atrial premature depolarization I49.5 Sick sinus syndrome Office Visit 03/03/2017 11:45a [facility] Ria Brothers, Z95.818 Presence of Of [facility] M.D. other cardiac implants and grafts I49.5 Sick sinus syndrome Office Visit 01/22/2017 2:00p [facility] Ria Brothers I49.5 Sick sinus Of [facility] AT [facility] M.D. syndrome I49.1 Atrial premature depolarization R00.2 Palpitations Z86.73 Prsnl hx of TIA (TIA), and cereb infrc w/o resid deficits D64.9 Anemia, unspecified Office Visit 12/05/2016 1:00p [facility] Ria Brothers I63.9 Cerebral Of [facility] M.D. 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 infarction, unspecified R00.2 Palpitations E78.2 Mixed hyperlipidemia I10 Essential (primary) hypertension Office Visit 05/15/2016 Neurohospitalist Josie Hassan63.9 Cerebral 1:30p Clinic [place] infarction, unspecified I10 Essential (primary) hypertension E78.5 Hyperlipidemia, unspecified Z79.82 detention (current) use of aspirin Office Visit 05/15/2016 [facility] Sahyla Contreras G45.9 Transient 8:43a Assoc,noah Gonzales, HARVESTER OPERATOR cerebral Hospitalists ischemic attack, unspecified E03.9 Hypothyroidism, unspecified Office Visit 05/14/2016 Neurohospital[facility] Josie Hassan63.9 Cerebral 1:29p Clinic [place] infarction, unspecified I10 Essential (primary) hypertension E78.5 Hyperlipidemia, unspecified Z79.82 detention (current) use of aspirin Office Visit 05/13/2016 8:42[facility] Isiah Chanko, G45.9 Transient Assoc,noah Ontiveros cerebral ischemic Hospitalists attack, unspecified E03.9 Hypothyroidism, unspecified Office Visit 03/20/2016 4:00p [facility] Ria Brothers, R07.9 Chest pain, Of [facility] Rama unspecified I10 Essential (primary) hypertension D64.9 Anemia, unspecified E03.9 Hypothyroidism, unspecified Office Visit 12/07/2015 2:00p [facility] Ria Brothers, R07.9 Chest pain, Of [facility] Rama unspecified M79.621 Pain in right upper arm R06.02 Shortness of breath Office Visit 05/30/2015 10:30a [facility] Gui Mcintosh 350.1 Neuralgia Services Of [facility] Rama Rich Trigeminal 724.2 Lumbago 781.2 Gait Abnormality Office Visit 04/11/2014 11:45a [facility] Bella Mcintosh 350.1 Neuralgia Services Of Brendan Rich M.D. Trigeminal Office Visit 04/12/2013 11:45a [facility] Gui Mcintosh 350.1 Neuralgia Services Of Brendan Rich M.D. Trigeminal Office Visit 07/14/2012 11:45a [facility] Gui Mcintosh 350.1 Neuralgia Services Of Brendan Rich M.D. Trigeminal 354.0 Carpal Tunnel Syndrome 785.9 Cardiovascular Symptoms Other Plan of Treatment Future Appointment(s):03/04/2019 4:00 pm - Ria Brothers M.D. at [facility]02/14/2019 - Gui Rich M.D.G50.0 Trigeminal neuralgiaFollow up:1 YEARS06.360D Traumatic hemorrhage of cerebrum, unspecified , without lossZ79.899 nsciousness, subsequent encounter
[2019-03-06 20:18] VITALS: BP 145/59
--- NOTE | 2019-03-06 20:34 | UC ---
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 NO LOC. NO VISUAL DISTURBANCES , DIZZINESS, NAUSEA. SHE DOES COMPLAIN OF A MILD HEADACHE. SHE IS ON PLAVIX FOR HISTORY OF STROKE AND HAS A HISTORY OF A BRAIN BLEED STATUS POST HEAD INJURY JUST THIS PAST WINTER. SHE IS ACCOMPANIED TODAY BY HER SON. - History Of Current Complaint Chief Complaint: UCHeadInjury Stated Complaint: HIT HER HEAD Time Seen by Provider: 03/06/19 20:10 Hx Obtained From: Patient, Family/Culinary Arts Instructor - SON Hx Last Menstrual Period: post Onset/Duration: Sudden Onset, Lasting Minutes, Still Present Severity Currently: Moderate Severity Initially: Moderate Pain Intensity: 4 Pain Scale Used: 0-10 Numeric Character: Dull Aggravating Factor(s): Nothing Alleviating Factor(s): Nothing Associated Signs And Symptoms: Negative: LOC (Time In Secs./Mins/Hrs), Confusion , Memory Loss, Neck Pain, Nausea Anticoagulant Therapy: Platelet Inhibitors - Allergies/Home Medications Allergies/Adverse Reactions: Allergies Allergy/AdvReac Type Severity Reaction Status Date / Time nabumetone [From Relafen] Allergy Swelling Verified 03/06/19 20:15 Of Face,Lips,& Throat Sulfa (Sulfonamide Allergy Rash Verified 03/06/19 20:15 Antibiotics) PMH/Surg Hx/FS Hx/Imm Hx Endocrine History: Hypothyroidism Cardiovascular History: Hypertension Neurological History: CVA - Surgical History Surgical History: Yes Surgery Procedure, Year, and Place: HYSTERECTOMY 1984-APPENDECTOMY AGE 15- DETACHED RETINA-CLEARED BY ORBIT XRAY IN 2003. MEDTRONIC LINQ 11-OK FOR UP TO 3T-PLACED AT [facility] [place] 06/2016-ALL INFO DOCUMENTED - Family History Known Family History: Positive: Hypertension, Renal Disease, Other - no breast cancer Negative: Respiratory Disease, Seizure Disorder - Social History Alcohol Use: None Substance Use Type: None Smoking Status (MU): Never Smoked Tobacco - Immunization History Most Recent Influenza Vaccination: May 2018 Most Recent Pneumonia Vaccination: 2016 Review of Systems All Other Systems Reviewed And Are Negative: Yes Constitutional: Positive: Negative Skin: Positive: Negative Respiratory: Positive: Negative Cardiovascular: Positive: Negative Gastrointestinal: Positive: Negative Neurological: Positive: Headache Physical Exam Triage Information Reviewed: Yes Appearance: Well-Appearing, No Pain Distress, Well-Nourished Vital Signs: Initial Vital Signs Temp 98.8 F 03/06/19 20:11 Pulse 66 03/06/19 20:11 Resp 16 03/06/19 20:11 BP 145/59 03/06/19 20:11 Pulse Ox 95 03/06/19 20:11 Vital Signs Reviewed: Yes Eyes: Positive: Conjunctiva Clear, Other: - EOMI, LEFT PUPIL LESS REACTIVE THAN RIGHT - H/O EYE SURGERY X2 ENT: Positive: Pharynx normal, TMs normal - NO HEMOTYMPANUM Neck: Positive: Supple, Nontender, No Lymphadenopathy Respiratory: Positive: No respiratory distress, No accessory muscle use Cardiovascular: Positive: Pulses Normal Abdomen Description: Positive: Soft Musculoskeletal: Positive: Edema @ - 2+ NON PITTING EDEMA Neurological: Positive: Alert, Other: - CN II-XII GROSSLY INTACT BILATERALLY. RAPID ALTERNATING MOVEMENTS INTACT. NEG PRONATOR DRIFT. 5/5 STRENGTH. HEEL TO POSADA INTACT BILATERALLY. FINGER TO NOSE INTACT. Psychological: Positive: Normal Response To Family, Age Appropriate Behavior Skin: Positive: Other - NO RACCOON EYES. NO BATTLES SIGN. Negative: Rashes Head Injury Course/Dx - Course Course Of Treatment: NO CT AVAILABLE IN . TO [facility] [place] ER BY AMBULANCE. - Differential Dx/Diagnosis Provider Diagnosis: Head injury - Physician Notification/Consults Discussed Patient Care With: Mason Briseno - TO [facility] [place] [facility] BY AMBULANCE Time Discussed With Above Provider: 20:30 Instructed by Provider To: MD Will See In ED Discharge - Sign-Out/Discharge Documenting (check all that apply): Patient Departure All imaging exams completed and their final reports reviewed: No Studies - Discharge Plan Condition: Stable Disposition: TRANS HIGHER LVL OF CARE FAC Referrals: Jia Kenney PA [Primary Care Provider] - - Billing Disposition and Condition Condition: STABLE Disposition: Trans Higher Lvl of Care Fac
== END 2019-03-06 20:45 | disposition short-term general hospital (02) ==
LOC: UCEAST 20:05
DX: S09.90XA Unspecified injury of head, initial encounter (principal); W19.XXXA Unspecified fall, initial encounter; Y93.K1 Activity, walking an animal; Y92.410 Unspecified street and highway as the place of occurrence of the external cause; Z79.01 Long term (current) use of anticoagulants; Z86.73 Personal history of transient ischemic attack (TIA), and cerebral infarction without residual deficits; I10 Essential (primary) hypertension
CPT/HCPCS: 99213; G0463

== ENCOUNTER 2019-03-06 21:01 | Emergency (ER) | payer MEDICARE, BC, OTHER ==
--- NOTE | 2019-03-06 21:11 | ED ---
Head Injury - HPI Summary HPI Summary: This patient is an 84 year old F brought to ED via EMS with a chief complaint of fall at 1900. Patient was walking her dog when the dog turned around and she lost her balance. She fell and hit the back of her head. Patient was barely able to pick herself up after the fall by first going up to her knees. Patient had a fall in December when CT scan at [facility] discovered bleeding in vessel per patient. In the room, patient reports a PASTRANA and feeling sore. She takes Plavix. The patient rates the pain 4/10 in severity. Symptoms aggravated by nothing. Symptoms alleviated by nothing. PMHx of anemia, HTN. PSHx of hysterectomy and appendectomy. FHx of HTN and renal disease. Patient does not use alcohol, tobacco, or substances. - History Of Current Complaint Stated Complaint: FALL PER EMS Hx Obtained From: Patient Hx Last Menstrual Period: post Mechanism Of Injury: Fall From A Standing Position Onset/Duration: Started Hours Ago - 1900 Onset of Pain: Post Accident Severity Initially: Moderate Pain Intensity: 4 Pain Scale Used: 0-10 Numeric Location of Head Injury: Occipital Character: Other: - Sore Associated Signs And Symptoms: Headache, Other: - Sore - Allergies/Home Medications Allergies/Adverse Reactions: Allergies Allergy/AdvReac Type Severity Reaction Status Date / Time nabumetone [From Relafen] Allergy Swelling Verified 03/06/19 20:15 Of Face,Lips,& Throat Sulfa (Sulfonamide Allergy Rash Verified 03/06/19 20:15 Antibiotics) PMH/Surg Hx/FS Hx/Imm Hx Previously Healthy: No Endocrine/Hematology History: Reports: Hx Thyroid Disease, Hx Anemia Denies: Hx Diabetes, Hx Unexplained Bleeding Cardiovascular History: Reports: Hx Hypertension, Hx Valvular Heart Disease - MVP Denies: Hx Aneurysm, Hx Angina, Hx Angioplasty, Hx Auto Implanted Cardiovert Defib, Hx Cardiac Arrest, Hx Cardiomegaly, Hx Congenital Heart Disease, Hx Congestive Heart Failure, Hx Coronary Artery Disease, Hx Deep Vein Thrombosis, Hx Embolism, Hx Hypotension, Hx Pacemaker/ICD, Hx Peripheral Vascular Disease, Hx Rheumatic Fever, Hx Syncope, Other Cardiovascular Problems/Disorders GI History: Reports: Hx Gastroesophageal Reflux Disease History: Reports: Hx Kidney Stones, Hx Renal Disease Musculoskeletal History: Reports: Hx Arthritis Sensory History: Reports: Hx Cataracts, Hx Contacts or Glasses, Hx Eye Injury - Retina detachment on left eye, Hx Hearing Aid - REMOVED Opthamlomology History: Reports: Hx Cataracts, Hx Contacts or Glasses, Hx Eye Injury - Retina detachment on left eye Neurological History: Reports: Hx Transient Ischemic Attacks (TIA), Other Neuro Impairments/Disorders - Pt states tegretol used for right cheek, trigeminal neuralgia Denies: Hx Dementia, Hx Developmental Delay, Hx Headaches, Hx Migraine, Hx Nerve Disease, Hx Seizures, Hx Spinal Cord Injury Psychiatric History: Reports: Hx Anxiety, Hx Depression, Hx Panic Disorder - Cancer History Hx Chemotherapy: No Hx Radiation Therapy: No - Surgical History Surgery Procedure, Year, and Place: HYSTERECTOMY 1984-APPENDECTOMY AGE 15- DETACHED RETINA-CLEARED BY ORBIT XRAY IN 2003. MEDTRONIC LINQ 11-OK FOR UP TO 3T[place] [facility] [place]ALL INFO DOCUMENTED Hx Anesthesia Reactions: No - Immunization History Date of Tetanus Vaccine: 2012 Date of Influenza Vaccine: Fall 2014 Infectious Disease History: Denies: Hx of Known/Suspected MRSA - Family History Known Family History: Positive: Hypertension, Renal Disease, Other - no breast cancer Negative: Respiratory Disease, Seizure Disorder - Social History Alcohol Use: None Hx Substance Use: No Substance Use Type: Reports: None Hx Tobacco Use: No Smoking Status (MU): Never Smoked Tobacco Review of Systems Musculoskeletal: Other - Sore Positive: Headache All Other Systems Reviewed And Are Negative: Yes Physical Exam - Summary Physical Exam Summary: Appearance: Well-appearing, Well-nourished, lying in bed comfortable Skin: Warm, dry, no obvious rash Eyes: sclera anicteric, no conjunctival pallor ENT: mucous membranes moist Neck: deferred Respiratory: No signs of respiratory distress Cardiovascular: Appears well perfused, pulses are nml Abdomen: deferred Musculoskeletal: Moving all 4 extremities without obvious discomfort, no signs of objective head trauma Neurological: Awake and alert, mentation is normal, speech is fluent and appropriate Psychiatric: affect is normal, does not appear anxious or depressed GCS: 15 Triage Information Reviewed: Yes Vital Signs On Initial Exam: Initial Vitals Temp Pulse Resp BP Pulse Ox 98 F 63 18 160/69 97 03/06/19 21:03 03/06/19 21:03 03/06/19 21:03 03/06/19 21:03 03/06/19 21:03 Vital Signs Reviewed: Yes Diagnostics - Laboratory Lab Statement: Any lab studies that have been ordered have been reviewed, and results considered in the medical decision making process. - CT Brain CT Interpretation Completed By: Radiologist Summary of CT Findings: 1. No traumatic intracranial abnormalities. 2. Age- related atrophy and mild chronic small vessel ischemic disease. Dr. Briseno has reviewed this radiology report. Head Injury Course/Dx Course Of Treatment: This patient is an 84 year old F brought to ED via EMS with a chief complaint of fall at 1900. Brain CT revealed: 1. No traumatic intracranial abnormalities. 2. Age-related atrophy and mild chronic small vessel ischemic disease. Patient will be discharged home with dx of fall and head injury. Patient understands and agrees with this plan. - Diagnoses Provider Diagnoses: Fall, Head injury Discharge - Sign-Out/Discharge Documenting (check all that apply): Patient Departure - Discharge Patient Received Moderate/Deep Sedation with Procedure: No - Discharge Plan Condition: Good Disposition: HOME Patient Education Materials: Head Injury (ED) Referrals: Jia Kenney PA [Primary Care Provider] - If Needed - Billing Disposition and Condition Condition: GOOD Disposition: Home - Attestation Statements Document Initiated by Frederick: Yes Documenting Scribe: Pete Howe Provider For Whom Frederick is Documenting (Include Credential): Mason Briseno MD Scribe Attestation: IPete, scribed for Mason Briseno MD on 03/07/19 at 0315. Scribe Documentation Reviewed: Yes Provider Attestation: The documentation as recorded by the Pete short accurately reflects the service I personally performed and the decisions made by me, Mason Briseno MD Status of Scribe Document: Viewed
[2019-03-06 22:27] VITALS: BP 151/66
== END 2019-03-06 22:20 | disposition home or self-care (01) ==
LOC: ED 21:01
DX: S09.90XA Unspecified injury of head, initial encounter (principal); R51 Headache; I10 Essential (primary) hypertension; Z88.2 Allergy status to sulfonamides; Z86.73 Personal history of transient ischemic attack (TIA), and cerebral infarction without residual deficits; I35.9 Nonrheumatic aortic valve disorder, unspecified; Z87.442 Personal history of urinary calculi; W19.XXXA Unspecified fall, initial encounter; Y93.K1 Activity, walking an animal; Y92.410 Unspecified street and highway as the place of occurrence of the external cause; Z79.01 Long term (current) use of anticoagulants
CPT/HCPCS: 70450; 99283

== ENCOUNTER 2019-03-23 04:12 | Emergency (ER) | payer MEDICARE, BC, OTHER ==
--- NOTE | 2019-03-23 04:29 | ED ---
Headache - HPI Summary HPI Summary: 84 year old F brought in by [facility] to [facility] from home where she lives with her with a chief complaint of shooting, sharp left-sided headache that radiates to her left ear since 21:00 yesterday. The patient rates the pain 4/10 in severity. Symptoms aggravated by nothing. Symptoms alleviated by nothing. Patient reports left-sided face numbness. Patient denies vomiting, photophobia. Patient states she fell a few months ago. Patient has treated the headache with 325 mg Tylenol 4 hours ago. - History Of Current Complaint Stated Complaint: "HEADACHE" PER EMS Time Seen by Provider: 03/23/19 04:15 Hx Obtained From: Patient Hx Last Menstrual Period: post Onset/Duration: Sudden Onset, Started hours ago - 21:00 yesterday, Still Present Currently Pain Is: Moderate Timing: Constant Character: Sharp Location of Headache: Other: - left sided Aggravating Factor: Nothing Allevating Factors: Nothing Associated Signs And Symptoms: Negative - vomiting, photophobia, Other (Noted In Comments) - left-sided face numbness - Allergies/Home Medications Allergies/Adverse Reactions: Allergies Allergy/AdvReac Type Severity Reaction Status Date / Time nabumetone [From Relafen] Allergy Swelling Verified 03/06/19 20:15 Of Face,Lips,& Throat Sulfa (Sulfonamide Allergy Rash Verified 03/06/19 20:15 Antibiotics) PMH/Surg Hx/FS Hx/Imm Hx Previously Healthy: No Endocrine/Hematology History: Reports: Hx Thyroid Disease, Hx Anemia Denies: Hx Diabetes, Hx Unexplained Bleeding Cardiovascular History: Reports: Hx Hypertension, Hx Valvular Heart Disease - MVP Denies: Hx Aneurysm, Hx Angina, Hx Angioplasty, Hx Auto Implanted Cardiovert Defib, Hx Cardiac Arrest, Hx Cardiomegaly, Hx Congenital Heart Disease, Hx Congestive Heart Failure, Hx Coronary Artery Disease, Hx Deep Vein Thrombosis, Hx Embolism, Hx Hypotension, Hx Pacemaker/ICD, Hx Peripheral Vascular Disease, Hx Rheumatic Fever, Hx Syncope, Other Cardiovascular Problems/Disorders GI History: Reports: Hx Gastroesophageal Reflux Disease History: Reports: Hx Kidney Stones, Hx Renal Disease Musculoskeletal History: Reports: Hx Arthritis Sensory History: Reports: Hx Cataracts, Hx Contacts or Glasses, Hx Eye Injury - Retina detachment on left eye, Hx Hearing Aid - REMOVED Opthamlomology History: Reports: Hx Cataracts, Hx Contacts or Glasses, Hx Eye Injury - Retina detachment on left eye Neurological History: Reports: Hx Transient Ischemic Attacks (TIA), Other Neuro Impairments/Disorders - Pt states tegretol used for right cheek, trigeminal neuralgia Denies: Hx Dementia, Hx Developmental Delay, Hx Headaches, Hx Migraine, Hx Nerve Disease, Hx Seizures, Hx Spinal Cord Injury Psychiatric History: Reports: Hx Anxiety, Hx Depression, Hx Panic Disorder - Cancer History Hx Chemotherapy: No Hx Radiation Therapy: No - Surgical History Surgery Procedure, Year, and Place: HYSTERECTOMY 1984-APPENDECTOMY AGE 15- DETACHED RETINA-CLEARED BY ORBIT XRAY IN 2003. MEDTRONIC LINQ 11-OK FOR UP TO 3T-PLACED AT [facility] [place] 06/2016-ALL INFO DOCUMENTED Hx Anesthesia Reactions: No - Immunization History Date of Tetanus Vaccine: 2012 Date of Influenza Vaccine: Fall 2014 Infectious Disease History: No Infectious Disease History: Denies: Hx of Known/Suspected MRSA, Traveled Outside the [place] in Last 30 Days - Family History Known Family History: Positive: Hypertension, Renal Disease, Other - no breast cancer Negative: Respiratory Disease, Seizure Disorder - Social History Alcohol Use: None Hx Substance Use: No Substance Use Type: Reports: None Hx Tobacco Use: No Smoking Status (MU): Never Smoked Tobacco Review of Systems Negative: Photophobia Negative: Vomiting Neurological: Other - left-sided face numbness Positive: Headache All Other Systems Reviewed And Are Negative: Yes Physical Exam - Summary Physical Exam Summary: VITAL SIGNS: Reviewed. GENERAL: Patient is a well-developed and nourished FEMALE who is lying comfortable in the stretcher. Patient is not in any acute respiratory distress. HEAD AND FACE: No signs of trauma. No ecchymosis, hematomas or skull depressions. No sinus tenderness. EYES: PERRLA, EOMI x 2, No injected conjunctiva, no nystagmus. EARS: Hearing grossly intact. Ear canals and tympanic membranes are within normal limits. MOUTH: Oropharynx within normal limits. NECK: Supple, trachea is midline, no adenopathy, no JVD, no carotid bruit, no c- spine tenderness, neck with full ROM CHEST: Symmetric, no tenderness at palpation LUNGS: Clear to auscultation bilaterally. No wheezing or crackles. CVS: Regular rate and rhythm, S1 and S2 present, no murmurs or gallops appreciated. ABDOMEN: Soft, non-tender. No signs of distention. No rebound no guarding, and no masses palpated. Bowel sounds are normal. EXTREMITIES: FROM in all major joints, no edema, no cyanosis or clubbing. NEURO: Alert and oriented x 3. No acute neurological deficits. Speech is normal and follows commands. SKIN: Dry and warm GCS: 15 Triage Information Reviewed: Yes Vital Signs On Initial Exam: Initial Vitals Temp Pulse Resp BP Pulse Ox 98.4 F 67 18 159/76 97 03/23/19 04:13 03/23/19 04:13 03/23/19 04:13 03/23/19 04:13 03/23/19 04:13 Vital Signs Reviewed: Yes Diagnostics - Vital Signs Vital Signs Temp Pulse Resp BP Pulse Ox 03/23/19 04:13 98.4 F 67 18 159/76 97 - Laboratory Result Diagrams: 03/23/19 04:49 03/23/19 04:49 Lab Statement: Any lab studies that have been ordered have been reviewed, and results considered in the medical decision making process. - CT Brain CT Interpretation Completed By: Radiologist Summary of CT Findings: 1. No acute intracranial abnormality. 2. No significant interval change in the appearance of brain since prior study. ED physician has reviewed this report. Headache Course/Dx - Course Course Of Treatment: 84 year old F brought in by [facility] to [facility] from home where she lives with her with a chief complaint of shooting, sharp left-sided headache that radiates to her left ear since 21:00 yesterday. Patient reports left-sided face numbness. Patient denies vomiting, photophobia. Physical exam findings: unremarkable. CT Brain reveals, per radiologist, 1. No acute intracranial abnormality. 2. No significant interval change in the appearance of brain since prior study. Test results with no significant abnormalities except for RBC 3.27, Hgb 10.0, Hct 30, MPV 6.6, BUN 27, creatinine 1.10, BUN/Creatinine ratio 24.5, glucose 107. In the ED course, the patient was given morphine and Zofran. Patient feels better and would like to go home. Patient will be discharged home with follow up from primary care provider in 3 days. Patient was instructed to return to ED for new or worsening symptoms. Patient understands and is agreeable to discharge plan. - Diagnoses Provider Diagnoses: Headache Discharge - Sign-Out/Discharge Documenting (check all that apply): Patient Departure - Discharge Patient Received Moderate/Deep Sedation with Procedure: No - Discharge Plan Condition: Stable Disposition: HOME Patient Education Materials: General Headache (ED) Referrals: Jia Kenney PA [Primary Care Provider] - 3 Days Additional Instructions: Follow up with your primary care provider in 3 days. Return to the Emergency Department for new or worsening symptoms. - Attestation Statements Document Initiated by Scribe: Yes Documenting Scribe: Krystal Romeo Provider For Whom Scribe is Documenting (Include Credential): Janene Allen MD Scribe Attestation: Krystal Hassan, scribed for Janene Allen MD on 03/23/19 at 0640. Status of Scribe Document: Ready
[2019-03-23] MEDS: Ondansetron INJ* 2 MG/ML VIAL IV ONE (04:52)
[2019-03-23] MEDS: Morphine 4 MG/ML VIAL (1 ml) 4 MG/ML VIAL IV ONE (04:52)
[2019-03-23 04:56] LABS: ABS Eosinophils 0.2 10^3/ul (0-0.6); ABS Lymphocytes 1.6 10^3/ul (1.0-4.8); ABS Monocytes 0.4 10^3/ul (0-0.8); Eosinophil % 3.9 %; Hematocrit 30 % (35-47); Lymphocyte % 36.6 %; Mean Corpuscular HGB Conc 34 g/dL (31-36); Mean Corpuscular Hemoglobin 31 pg (27-31); Mean Corpuscular Volume 91 fL (80-97); Mean Platelet Volume 6.6 fL (7.4-10.4); Nucleated Red Blood Cells % 0.1; Platelet Count 281 10^3/uL (150-450); Red Blood Count 3.27 10^6 /uL (3.70-4.87); Red Cell Distribution Width 13 % (10-15); White Blood Count 4.2 10^3/uL (3.5-10.8)
--- OUTSIDE RECORDS SUMMARY | 2019-03-23 05:06 | XMS REPORT | Continuity of Care Document ---
:1935 External Reference #:[id number] Author Name Vale Charles O.D. Address [address] [place] [address] Care Team Providers Name Role Phone Roxanne José Primary Care Physician Unavailable Payers Date Identification Numbers Payment Provider Subscriber Policy Number: [id number] Medicare - [facility] Emma Conradálvaro PayID: [id number] [address] [place] [address] Policy Number: [id number] [facility] Neeraj Vergara Group Number: [id number] [address] PayID: [id number] [place] [address] Policy Number: [id number] [facility] Emma Vergara Group Number: [id number] [address] [address] PayID: [id number] [place] [address] Problems Active Problems Provider Date Hearing loss Onset: Gastroesophageal reflux disease Onset: Hyperthyroidism Onset: Tachycardia Onset: Arthritis Onset: Neuralgia Onset: Anxiety attack Onset: Corneal endothelial dystrophy Vale Charles O.D. Onset: 05/02/2015 Nuclear senile cataract Vale Charles O.D. Onset: 05/02/2015 Cortical senile cataract Vale Charles O.D. Onset: 05/02/2015 Old partial retinal detachment Vale Charles O.D. Onset: 05/02/2015 Retinal detachment Vale Charles O.D. Onset: 02/13/2016 Hypermetropia Vale Charles O.D. Onset: 02/13/2016 Regular astigmatism Vale Charles O.D. Onset: 02/13/2016 Presbyopia Vale Charles O.D. 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 day prn Omeprazole Unknown 20mg Capsules DR Synthroid Unknown 75mcg Tablets Atenolol Unknown 50mg Tablets Aspirin Ec twice a day by Unknown 81mg Tablets DR mouth Vitamin B-12 Unknown 500mcg Tablets Sub Clonazepam Unknown 1mg Tablets Lexapro Unknown 10mg Tablets Vitamin D3 Unknown 1000Unit Tablets Carbamazepine ER Unknown 200mg Caps ER 12HR Atorvastatin Calcium Unknown 20mg Tablets Clopidogrel Bisulfate Unknown 75mg Tablets Karolina 128 both eyes every Unknown 5% Ointment night Medications Administered in Office Medication SIG Qnty Indications Ordering Provider Date Elinor Martinez 08/15/2003 Injection Procedures Date Code Description Status 02/10/2018 50430 Determination Of Refractive State Completed 02/10/2018 13696 Est Patient Comprehensive Exam Completed 01/15/2017 02578 Est Patient Comprehensive Exam Completed 02/13/2016 83940 Determination Of Refractive State Completed 02/13/2016 76139 Est Patient Comprehensive Exam Completed 05/02/2015 95164 Est Patient Comprehensive Exam Completed 04/28/2014 52484 Determination Of Refractive State Completed 04/28/2014 71104 Est Patient Comprehensive Exam Completed 09/21/2013 24448 Est Patient Comprehensive Exam Completed 03/24/2013 59606 Est Patient Intermediate Exam Completed 09/21/2012 35652 Pachymetry Completed 03/25/2012 42627 Est Patient Intermediate Exam Completed 03/25/2011 09959 Est Patient Comprehensive Exam Completed 07/24/2010 69205 Est Patient Intermediate Exam Completed 03/20/2010 29047 Est Patient Comprehensive Exam Completed 06/21/2009 63937 Determination Of Refractive State Completed 06/21/2009 22351 Est Patient Comprehensive Exam Completed 12/11/2008 57913 Est Patient Intermediate Exam Completed 07/24/2008 58012 Determination Of Refractive State Completed 07/24/2008 92217 Est Patient Comprehensive Exam Completed 11/11/2006 80205 Recheck Completed 01/15/2006 30697 Determination Of Refractive State Completed 01/15/2006 39070 Est Patient Comprehensive Exam Completed 08/15/2003 113 Crizal Completed Encounters Type Date Location Provider Dx Diagnosis Office Visit 02/18/2018 Vale Peterson, 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 Dystrophy Plan of Treatment 03/16/2019 - Vale Charles O.D.H18.51 Endothelial corneal dystrophyComments: Smoking can increase the risk of developing or worsening any eye related disease , as well as affect your overall health. If you are a smoker, we strongly recommend that you quit.If you are not a smoker, we strongly recommend that you do not start. You have Fuch's corneal dystrophy. This may cause reduced vision. If you are noticing blurred vision, especially in the morning, use Karolina 128 ointment inaffected eyes before bedtime.Follow up:1 Year Follow Up You can expect to have your eyes [...] feel free to call our office at .H25.13 Age- related nuclear cataract, bilateralComments:You have nuclear sclerosis, which is hardening of your natural lens. This is normal as a person ages.H52.223 Regular astigmatism, bilateralComments:Astigmatism is a common vision condition that happens when a person's cornea is not symmetrical. Dr. Charles has given you a prescription to correct for this.H52.4 PresbyopiaComments:You have presbyopia. This is when the lens in your eye loses the ability to change focus , and happens as we age. A pair of reading glasses will help you see up close.H52.03 Hypermetropia, bilateralComments:You have Hyperopia, or far sightedness, I have given you a prescription for glasses.
[2019-03-23 05:11] LABS: Activated Partial Thrombo Time 33.3 seconds (26.0-38.0); INR 0.91 (0.82-1.09)
[2019-03-23 05:16] LABS: Albumin 3.8 g/dL (3.2-5.2); Albumin/Globulin Ratio 1.4 (1-3); BUN/Creatinine Ratio 24.5 (8-20); Calcium 8.7 mg/dL (8.6-10.3); EGFR Non-African American 47.1 (>60); Globulin 2.7 g/dL (2-4); Potassium 4.1 mmol/L (3.5-5.0); Total Bilirubin 0.2 mg/dL (0.2-1.0); Total Protein 6.5 g/dL (6.4-8.9)
[2019-03-23 06:37] VITALS: BP 109/61
== END 2019-03-23 06:51 | disposition home or self-care (01) ==
LOC: ED 04:12
DX: R51 Headache (principal); I10 Essential (primary) hypertension
CPT/HCPCS: 36415; 70450; 80053; 85025; 85610; 85730; 96374; 96375; 99284; J2270; J2405

== ENCOUNTER 2019-06-05 17:51 | Emergency (ER) | payer MEDICARE, BC, OTHER ==
[2019-06-05] MEDS ORDERED: Acetaminophen TAB* 325 MG PO ONE (18:33)
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
[2019-06-05 19:15] LABS: ABS Basophils 0.1 10^3/ul (0-0.2); ABS Eosinophils 0.2 10^3/ul (0-0.6); ABS Lymphocytes 1.7 10^3/ul (1.0-4.8); ABS Monocytes 0.6 10^3/ul (0-0.8); ABS Neutrophils 3.8 10^3/ul (1.5-7.7); Eosinophil % 2.7 %; Hematocrit 32 % (35-47); Hemoglobin 10.9 g/dL (12.0-16.0); Lymphocyte % 27.5 %; Mean Corpuscular HGB Conc 34 g/dL (31-36); Mean Corpuscular Hemoglobin 30 pg (27-31); Mean Corpuscular Volume 89 fL (80-97); Mean Platelet Volume 6.8 fL (7.4-10.4); Platelet Count 305 10^3/uL (150-450); Red Blood Count 3.63 10^6 /uL (3.70-4.87); Red Cell Distribution Width 14 % (10-15); White Blood Count 6.4 10^3/uL (3.5-10.8)
[2019-06-05 19:19] LABS: INR 0.92 (0.82-1.09)
[2019-06-05 19:29] LABS: Urine Appearance Cloudy; Urine Bacteria 2+ (Absent); Urine Bilirubin Negative (Negative); Urine Blood Negative (Negative); Urine Color Yellow; Urine Glucose Negative (Negative); Urine Ketones Negative (Negative); Urine Nitrite Positive (Negative); Urine Protein Negative (Negative); Urine Red Blood Cell Trace(0-2/hpf) (Absent); Urine Squamous Epithelial Cell Present (Absent); Urine Urobilinogen Negative (Negative); Urine White Blood Cell 2+(11-20/hpf) (Absent)
[2019-06-05 19:30] LABS: Albumin/Globulin Ratio 1.6 (1-3); BUN/Creatinine Ratio 20.1 (8-20); Calcium 9.1 mg/dL (8.6-10.3); EGFR African American 45.4 (>60); EGFR Non-African American 37.5 (>60); Globulin 2.5 g/dL (2-4); Potassium 4.3 mmol/L (3.5-5.0); Total Bilirubin 0.2 mg/dL (0.2-1.0); Total Protein 6.5 g/dL (6.4-8.9)
[2019-06-05] MEDS ORDERED: Cephalexin CAP* 500 MG PO ONE (20:27)
[2019-06-05 21:26] VITALS: BP 156/60
== END 2019-06-05 21:26 | disposition home or self-care (01) ==
LOC: ED 17:51
DX: S80.02XA Contusion of left knee, initial encounter (principal); S40.022A Contusion of left upper arm, initial encounter; M25.512 Pain in left shoulder; V47.5XXA Car driver injured in collision with fixed or stationary object in traffic accident, initial encounter; Y92.413 State road as the place of occurrence of the external cause; N39.0 Urinary tract infection, site not specified; M19.012 Primary osteoarthritis, left shoulder; M50.322 Other cervical disc degeneration at C5-C6 level; I11.9 Hypertensive heart disease without heart failure; I34.1 Nonrheumatic mitral (valve) prolapse; Z79.01 Long term (current) use of anticoagulants; N28.9 Disorder of kidney and ureter, unspecified; G50.0 Trigeminal neuralgia; Z88.2 Allergy status to sulfonamides; Z88.8 Allergy status to other drugs, medicaments and biological substances
CPT/HCPCS: 36415; 70450; 71045; 72125; 80053; 81003; 81015; 82150; 82550; 83690; 83880; 84484; 85025; 85610; 87077; 87086; 87186; 93005; 99282; A9270-GY

== ENCOUNTER 2019-06-12 07:01 | Emergency (ER) | payer MEDICARE, BC, OTHER ==
[2019-06-12] MEDS ORDERED: Acetaminophen TAB* 325 MG PO ONE (07:38)
[2019-06-12 09:17] VITALS: BP 146/68
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
== END 2019-06-12 09:24 | disposition home or self-care (01) ==
LOC: ED 07:01
DX: S09.90XA Unspecified injury of head, initial encounter (principal); W07.XXXA Fall from chair, initial encounter; Y92.009 Unspecified place in unspecified non-institutional (private) residence as the place of occurrence of the external cause; E07.9 Disorder of thyroid, unspecified; D64.9 Anemia, unspecified; I10 Essential (primary) hypertension; K21.9 Gastro-esophageal reflux disease without esophagitis; Z86.73 Personal history of transient ischemic attack (TIA), and cerebral infarction without residual deficits; F41.9 Anxiety disorder, unspecified; F32.9 Major depressive disorder, single episode, unspecified; Z79.01 Long term (current) use of anticoagulants; Z79.899 Other long term (current) drug therapy; Z88.2 Allergy status to sulfonamides; Z88.8 Allergy status to other drugs, medicaments and biological substances
CPT/HCPCS: 70450; 72125; 99283; A9270-GY

== ENCOUNTER 2019-08-11 09:03 | Observation (INO) | payer MEDICARE, BC, OTHER ==
[~2019-08-11 09:03] MED LIST: ceFAZolin 2 GM in NS 100 ml - ONCE (Pharmacy Admix) IVPB ONE
[2019-08-11 09:57] LABS: ABS Eosinophils 0.1 10^3/ul (0-0.6); ABS Lymphocytes 1.2 10^3/ul (1.0-4.8); ABS Monocytes 0.4 10^3/ul (0-0.8); ABS Neutrophils 2.8 10^3/ul (1.5-7.7); Eosinophil % 2.3 %; Hematocrit 33 % (35-47); Hemoglobin 10.9 g/dL (12.0-16.0); Lymphocyte % 25.7 %; Mean Corpuscular HGB Conc 33 g/dL (31-36); Mean Corpuscular Hemoglobin 30 pg (27-31); Mean Corpuscular Volume 91 fL (80-97); Mean Platelet Volume 6.6 fL (7.4-10.4); Nucleated Red Blood Cells % 0.1; Platelet Count 275 10^3/uL (150-450); Red Cell Distribution Width 14 % (10-15); White Blood Count 4.5 10^3/uL (3.5-10.8)
[2019-08-11] MEDS ORDERED: Diazepam TAB(*) 5 MG ONE (10:04)
[2019-08-11 10:11] LABS: BUN/Creatinine Ratio 21.4 (8-20); Calcium 8.9 mg/dL (8.6-10.3); EGFR African American 53.1 (>60); EGFR Non-African American 43.9 (>60); Potassium 4.1 mmol/L (3.5-5.0)
[2019-08-11 10:15] LABS: Activated Partial Thrombo Time 34.7 seconds (26.0-38.0); INR 0.91 (0.82-1.09)
[2019-08-11] MEDS ORDERED: Flumazenil* 0.1 MG/ML 5 ML MDV ONE (10:17)
[2019-08-11] MEDS ORDERED: Naloxone* 0.4 MG/ML 1 ML VIAL ONE (10:17)
[2019-08-11] MEDS ORDERED: Lidocaine 1% INJ* 10 MG/ML 30 ML SDV ONE ×2 (10:17→11:48)
[2019-08-11] MEDS ORDERED: Midazolam* 1 MG/ML 5 ML VIAL (5 MG) ONE (10:17)
[2019-08-11] MEDS ORDERED: fentaNYL* 50 MCG/ML 2 ML VIAL (100 MCG VIAL) ONE (10:17)
[2019-08-11] MEDS ORDERED: Iohexol 300* (CONTRAST) 10 ML SDV ONE (10:18)
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
[2019-08-11] MEDS ORDERED: Furosemide TAB* 20 MG PO PRN (12:52)
[2019-08-11] MEDS ORDERED: Cephalexin CAP* 500 MG PO SCH (14:00)
[2019-08-11] MEDS: ceFAZolin VIAL(*) 1 GM in NS 0.9% 50 ML* 50 ML IVPB SCH ×2 (14:39→22:49)
[2019-08-11] MEDS: Acetaminophen TAB* 325 MG PO PRN ×2 (16:24→20:31)
[2019-08-11] MEDS ORDERED: Atorvastatin* 20 MG TAB PO SCH (18:00)
[2019-08-11] MEDS: Escitalopram * 10 MG TAB PO SCH (19:48)
[2019-08-11] MEDS: carBAMazepine TAB(*) 200 MG PO SCH (19:48)
[2019-08-11] MEDS: Atenolol TAB* 25 MG PO SCH (19:48)
[2019-08-11] MEDS: clonazePAM TAB(*) 1 MG PO SCH (19:48)
[2019-08-11] MEDS ORDERED: Famotidine TAB* 20 MG PO SCH (21:00)
[2019-08-12] MEDS ORDERED: Lidocaine PATCH 5%* 1 PATCH TRANSDERM ONE (01:00)
[2019-08-12] MEDS: Acetaminophen TAB* 325 MG PO PRN (03:10)
[2019-08-12] MEDS ORDERED: Levothyroxine TAB* 88 MCG TAB PO SCH (06:00)
[2019-08-12] MEDS: ceFAZolin VIAL(*) 1 GM in NS 0.9% 50 ML* 50 ML IVPB SCH (06:09)
--- NOTE | 2019-08-12 08:27 | PN ---
Subjective Date of Service: 08/12/19 - CC: sick sinus syndrom s/p pacer Interval History: Incisional tenderness, improved with Lidocaine patch. No SOB. Medications Active Medications: Acetaminophen (Tylenol Tab*) 650 mg PO Q4H PRN PRN Reason: PAIN Last Admin: 08/12/19 03:10 Dose: 650 mg Atenolol (Tenormin Tab*) 25 mg PO BID [facility] Last Admin: 08/11/19 19:48 Dose: 25 mg Atorvastatin Calcium (Lipitor*) 20 mg PO QPM [facility] Last Admin: 08/11/19 19:48 Dose: 20 mg Carbamazepine (Tegretol Tab(*)) 200 mg PO BID [facility] Last Admin: 08/11/19 19:48 Dose: 200 mg Carboxymethylcellulose Sodium (Celluvisc 1% Opth*) 1 drop BOTH EYES DAILY [facility] Clonazepam (Klonopin Tab(*)) 1 mg PO BID [facility] Last Admin: 08/11/19 19:48 Dose: 1 mg Cyanocobalamin (Vitamin B12 Tab*) 500 mcg PO DAILY [facility] Escitalopram Oxalate (Lexapro *) 10 mg PO BID [facility] Last Admin: 08/11/19 19:48 Dose: 10 mg Famotidine (Pepcid Tab*) 20 mg PO BEDTIME [facility]; Protocol Last Admin: 08/11/19 19:51 Dose: 20 mg Levothyroxine Sodium (Synthroid Tab*) 88 mcg PO DAILY@0600 [facility] Last Admin: 08/12/19 06:08 Dose: 88 mcg Pharmacy Profile Note (Lidocaine Patch Remove*) 1 note PATCH OFF 1300 ONE Stop: 08/12/19 13:01 Objective Vital Signs: Temp Pulse Resp BP Pulse Ox 97.4 F 61 16 121/56 95 08/12/19 03:27 08/12/19 03:27 08/12/19 03:27 08/12/19 03:27 08/12/19 04:00 Oxygen Devices in Use Now: None Appearance: elderly woman, lying in no distress Eyes: PERRLA Ears/Nose/Mouth/Throat: Clear Oropharnyx, Mucous Membranes Moist Neck: NL Appearance and Movements; NL JVP Respiratory: Symmetrical Chest Expansion and Respiratory Effort, Clear to Auscultation Cardiovascular: RRR - incision left subclavian fossa free of infection, bruising and no hematoma. Abdominal: NL Sounds; No Tenderness; No Distention Extremities: No Edema Skin: No Rash or Ulcers Neurological: Alert and Oriented x 3, NL Muscle Strength and Tone Laboratory Results: 08/11/19 09:45 08/11/19 09:45 INR (Anticoag Therapy) 0.91 (0.82-1.09) 08/11/19 09:45 APTT 34.7 seconds (26.0-38.0) 08/11/19 09:45 Diagnostic Imaging: CXR 08/11/19: No pneumothorax good lead placement. Assessment/Plan 84 yo s/p pacer implantation doing well. Awaiting pacer interogation, CXR today and will have PT evaluate. Poss. discharge today.
[2019-08-12] MEDS ORDERED: Carboxymethylcellulos 1% OPTH* 1 DROP AMP BOTH EYES SCH (09:00)
[2019-08-12] MEDS ORDERED: Cyanocobalamin TAB* 500 MCG PO SCH (09:00)
[2019-08-12] MEDS: clonazePAM TAB(*) 1 MG PO SCH (10:28)
[2019-08-12] MEDS: Escitalopram * 10 MG TAB PO SCH (10:29)
[2019-08-12] MEDS: Atenolol TAB* 25 MG PO SCH (10:29)
[2019-08-12] MEDS: carBAMazepine TAB(*) 200 MG PO SCH (10:29)
[2019-08-12 11:42] VITALS: BP 116/52
[2019-08-12] MEDS ORDERED: Lidocaine Patch REMOVE* 1 NOTE MISC PATCH OFF ONE (13:00)
--- NOTE | 2019-08-17 23:56 | OP ---
DATE OF OPERATION: 08/11/19 - ROOM #442 DATE OF : 31 SURGEON: Ria Brothers MD ANESTHESIA: MAC. PRE-OP DIAGNOSIS: Sick sinus syndrome with sinus pauses. POST-OP DIAGNOSIS: Sick sinus syndrome with sinus pauses. OPERATIVE PROCEDURE: Dual chamber pacemaker implantation. DESCRIPTION OF PROCEDURE: The indications, risks, and benefits were discussed with the patient in the office and again in the hospital and she was amenable to proceeding. The patient is right handed and the left subclavian fossa was prepped and draped in the usual sterile fashion. A time-out procedure was called. The patient received Versed and fentanyl for sedation and 1% lidocaine for local anesthesia, amounts documented separately. The patient received 10 cc of radiopaque dye in the left upper extremity outlining the left subclavian and left axillary veins. Following this, the patient received 1% lidocaine for local anesthesia. Using a 10-blade knife, a 2.5 cm incision was made in the left subclavian fossa and using Bovie and blunt dissection, was extended to the level of the pectoralis muscle. Additional lidocaine was then infused inferiorly and using blunt dissection, a pocket was fashioned. Using a modified Seldinger technique, the left subclavian vein was cannulated, a guidewire inserted and extended to the right atrium, this was repeated with a second guidewire. Using an introducer technique, the right ventricular lead was guided in the right ventricular apex, then slid up the septum and actively fixed in place. Using the second guidewire in an introducer technique, the atrial lead was guided into the right atrial appendage and actively fixed in place. Pacing and sensing thresholds were checked and found to be good. The leads were sutured to the pocket taking care adequate lead was placed from movement. The pocket was then copiously irrigated. The leads were attached to the device. The device was placed in the pocket. The pocket was closed using 2 layers of absorbable suture, 2-0 followed by 4-0 followed by darrel and external dressing. FINDINGS: The system is a Offermatica MRI compatible system. The device is a model Edora #8 DRT, reference #328628, serial #[id number]. The atrial lead is a Biotronik Solia S45, reference #701952, serial #[id number]. The ventricular lead is a Biotronik Solia S53, reference #749827, serial #[id number]. The atrial lead measures P waves of 2.1 millivolts with atrial lead impedance of 443 ohms and atrial pacing threshold of 1.6 volts at 0.4 milliseconds. The ventricular lead measures R waves of 6.1 millivolts with ventricular lead impedance of 852 ohms and a ventricular pacing threshold of 0.4 volt at 0.4 milliseconds. The patient was hemodynamically stable throughout the procedure and on transfer to the floor, and there were no complications. CONCLUSIONS: Successful implantation of the dual chamber pacer. No complications. ESTIMATED BLOOD LOSS: Less than 5 cc. [id number]/[facility] #: [id number] [facility]immie
--- NOTE | 2019-08-31 10:56 | DS ---
CC: ARGENTINA Amador DISCHARGE SUMMARY: DATE OF ADMISSION: DATE OF DISCHARGE: 08/12/19 HISTORY OF PRESENT ILLNESS: Emma Vergara is an 84-year-old woman with a LINQ implantable event monito r due to her history of TIAs and strokes.. The monitor had revealed some atrial ectopy and more recently episodes of second degree heart block t ype 2 and she was admitted for elective pacemaker implantation. OUTPATIENT MEDICATIONS: Included: 1. Clonazepam 1 mg t.i.d. 2. Lexapro 10 mg b.i.d. 3. Liquigel eye drops. 4. Carbamazepine 200 mg b.i.d. 5. Atenolol 50 mg b.i.d. (recently decreased). 6. Vitamin B12 of 500 mg a day. 7. Atorvastatin 20 mg a day. 8. Plavix 75 mg a day (on hold). 9. Tylenol p.r.n. 10. Synthroid 88 mcg a day. 11. Lasix p.r.n. 12. Flintstones multivitamins daily. ALLERGIES AND INTOLERANCE: Include RELAFEN and SULFA. PAST MEDICAL HISTORY: 1. The patient has a past medical history of stroke, May 2016, consistent with embolic stroke and 2017. 2. Sick sinus syndrome with 4-second pause 2016 and recurrence 2017. 3. Restrictive lung disease. 4. Osteoarthritis. 5. Trigeminal neuralgia. 6. Hypothyroid disease. 7. Anxiety 8. Anemia. 9. Hypertension. 10. Intracranial hemorrhage December 2018 following a fall. PAST SURGICAL HISTORY: Includes appendectomy and hysterectomy. SOCIAL HISTORY: The patient lives with her . 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 Ne zohreh smoked. No history of alcohol or recreational drug use. FAMILY HISTORY: Positive for heart disease, hypertension, stroke, cancer. Mother had renal cancer. HOSPITAL COURSE: The patient was admitted on 08/11/19, underwent implantation of dual chamber pacema ker, had some mild incisional tenderness overnight that responded to lidocaine patch. She otherwise felt well. PHYSICAL EXAMINATION ON DAY OF DISCHARGE: The patient was awake, alert and oriented to person, place and time. Cranial nerves II through XII intact. Lungs were clear with good effort. No wheezes, ra les or rhonchi. Incision in the left subclavian fossa free of infection, ecchymosis or hematoma. Co ronary: S1 and S2, regular. Abdomen: Soft. Extremities were free of edema. LABORATORY ON ADMISSION: Revealed anemia with crit of 33 and mild renal insufficiency. Chest x-ray done post implant showed no pneumothorax, good lead placement. The pacemaker was a Biotr onLinguaLeo Edora MRI compatible device with Solia leads, atrial sensing 2.1 millivolts with atrial lead imp edance of 443 ohms and a ventricular pacing threshold of 1.6 volts at 6.4 milliseconds. The ventricu lar lead impedance was 852 ohms with R-wave sense of 6.1 millivolts and a ventricular pacing threshol d of 0.4 volts at 0.4 milliseconds. Labs from 08/11/19. Sodium 139, potassium 4.1, chloride 103, bicarb 29, BUN 25, creatinine 1.17, INR 0.91, PTT 35. MEDICATIONS AT DISCHARGE: Included: 1. Tylenol p.r.n. 2. Atenolol 25 mg b.i.d. 3. Atorvastatin 20 mg a day. 4. Tegretol 200 mg b.i.d. 5. Carboxymethylcellulose eye drops. 6. Keflex 500 mg t.i.d. for 4 days. 7. Klonopin 1 mg b.i.d. 8. Plavix 75 mg a day to resume Thursday. 9. Vitamin B12 of 500 mcg a day. 10. Lexapro 10 mg b.i.d. 11. Lasix 20 mg p.r.n. 12. Synthroid 88 mcg a day. 13. Multivitamins. 14. Flintstones vitamins. 15. Ranitidine 150 mg b.i.d. She was sent home with visiting nurses and followup was arranged at 1 week and 1 month with myself. CONCLUSION: Ms. Vergara underwent a dual chamber pacemaker implantation for progressive sick sinus syn drome as well as atrial ectopy and a history of stroke without complications. [id number]/[facility] #: [id number]
== END 2019-08-12 15:50 | disposition home or self-care (01) ==
LOC: CHICATH 09:03 → MEDTELE 12:47 → UNDOADMOB 13:19 → MEDTELE 13:19 → INTOOBSV 13:19
PROVIDERS: ADMIT Specialist; ATTEND Specialist
DX: I49.5 Sick sinus syndrome (principal); G45.9 Transient cerebral ischemic attack, unspecified; R00.2 Palpitations; I49.1 Atrial premature depolarization; I10 Essential (primary) hypertension; J66.8 Airway disease due to other specific organic dusts; G50.0 Trigeminal neuralgia; F41.9 Anxiety disorder, unspecified; F32.9 Major depressive disorder, single episode, unspecified; E03.9 Hypothyroidism, unspecified; D64.9 Anemia, unspecified; Z86.73 Personal history of transient ischemic attack (TIA), and cerebral infarction without residual deficits; Z79.899 Other long term (current) drug therapy; Z87.440 Personal history of urinary (tract) infections; R94.31 Abnormal electrocardiogram [ECG] [EKG]; Z86.79 Personal history of other diseases of the circulatory system; Z79.01 Long term (current) use of anticoagulants
CPT/HCPCS: 33208; 36415; 71045; 71046; 80048; 85025; 85610; 85730; 93005; 99156; 99157; A9270-GY; C1786; C1892; C1898; G0378; G8978-GP-CI; G8979-GP-CI; G8980-GP-CI; J0690; J2250; J2310; J3010

== ENCOUNTER 2019-10-03 07:46 | Emergency (ER) | payer MEDICARE, BC, OTHER ==
--- OUTSIDE RECORDS SUMMARY | 2019-10-03 07:55 | XMS REPORT ---
:1935 Author Organization [facility] Care Team Providers Name Role Phone Unavailable Unavailable Unavailable Problems This patient has no known problems. Allergies, Adverse Reactions, Alerts Allergy Name Allergy Status Severity Reaction(s) Onset Inactive Treating Comments Type Date Date Clinician Sulfa Allergen Active Unknown Reaction 2019-0 Gaby Beam (Sulfonamide Group Unknown 3-23 Antibiotics) nabumetone Base Active Unknown Reaction 20190 Gaby Beam Ingredient Unknown 3-23 Medications Ordered Filled Start Stop Current Ordering Indication Dosage Frequency Signature Comments Components Medication Medication Date Date Medication? Clinician (SIG) Name Name No Known No Known No None None None Medications Medications For This For This Patient Patient Procedures This patient has no known procedures. Results This patient has no known results.
--- OUTSIDE RECORDS SUMMARY | 2019-10-03 07:55 | XMS REPORT | Continuity of Care Document ---
:1935 External Reference #:[id number] Author Name Ria Brothers M.D. (transmitted by agent of provider Heather Berry) Address [address] [place] [id number] Care Team Providers Name Role Phone King Andrade MD - Family Care Team Information Farmworker Livestock [phone] Medicine Roxanne José PA - Physician Care Team Information Farmworker Livestock [phone] Missionary Coordinator Problems Active Problems Provider Date Trigeminal neuralgia [...] primary osteoarthritis Ruthy Tolliver M.D. Onset: 10/09/2017 Cardiac pacemaker in situ Ria Brothers M.D. Onset: 08/18/2019 Social History Type Date Description Comments Sex Unknown Tobacco Use Start: Unknown Never Smoked Cigarettes Smoking Status Reviewed: 08/18/19 Never Smoked Cigarettes ETOH Use Never used alcohol Tobacco Use Start: Unknown Patient has never smoked Recreational Drug Use Denies Drug Use Exercise Type/Frequency Exercises sporadically Allergies, Adverse Reactions, Alerts Active Allergies Reaction Severity Comments Date Relafen 04/12/2013 Sulfa Antibiotics 04/12/2013 Medications Active Medications SIG Qnty Indications Ordering Date Provider Clonazepam 1 tab three 20tabs Unknown 1mg Tablets times a day . MDD=3 Lexapro 1 po bid 30tabs Unknown 10mg Tablets Refresh Liquigel 1 gtt each eye Unknown 1% prn Solution Carbamazepine 1 tab by mouth 180tabs Gui S. 200mg twice a day Rama Rich Tablets Atenolol 1/2 by mouth 60tabs Qutayb S. 50mg Tablets twice daily Rama Tubbs Vitamin B-12 1 tab po every Unknown Natural day 500mcg Tablets Atorvastatin Calcium take 1 tablet at Unknown 20mg bedtime Tablets Clopidogrel Bisulfate 1 by mouth every 90tabs Gui Mcintosh day Rama Rich 75mg Tablets Acetaminophen 2 tablets by Unknown 325mg mouth every 6 Tablets hours as needed for pain/fever Synthroid 1 by mouth every Unknown 88mcg Tablets day Lasix take for leg Unknown pain as needed Flintstones Complete 1 by mouth twice Unknown 60mg daily Chewtabs History Medications Vitamin B6 Take one tablet 90tabs Gui Rich, 02/24/2019 - 50mg by mouth daily. MDianaDDiana 03/02/2019 Tablets Take with food. Medications Administered in Office Medication SIG Qnty Indications Ordering Provider Date Depomedrol 40MG Ruthy Tolliver M.D. 10/09/2017 Injection Inj, Regadenoson, 0.1 MG Mario Tong M.D., 03/18/2016 Injection LENI KIM Aminophylline Mario Tong M.D., 03/18/2016 Injection LENI KIM Technetium TC 99M Mario Tong M.D., 03/18/2016 Tetrofosmin, Per Unit Dose Up LENI KIM To 40 Millicuries Injection Technetium TC 99M Ria Brothers M.D. 03/18/2016 Tetrofosmin, Per Unit Dose Up To 40 Millicuries Injection Immunizations Description No Information Available Vital Signs Date Vital Result Comment 08/18/2019 1:56pm Height 60 inches 5'0" Weight 173.00 lb with shoes Heart Rate 78 /min BP Systolic Sitting 124 mmHg Rue reg cuff BP Diastolic Sitting 70 mmHg Rue reg cuff BMI (Body Mass Index) 33.8 kg/m2 Ejection Fraction 55-60% date 08/09/18 ECHO 03/04/2019 4:03pm Height 60 inches 5'0" Weight 174.00 lb with shoes Heart Rate 68 /min BP Systolic Sitting 110 mmHg lue reg cuff BP Diastolic Sitting 68 mmHg lue reg cuff BP Systolic Standing 110 mmHg lue reg cuff BP Diastolic Standing 60 mmHg lue reg cuff BMI (Body Mass Index) 34.0 kg/m2 Ejection Fraction 55-60% echo. 08/09/18 Results Test Acquired Date Facility Test Result H/L Range Note Inr/Protime 08/11/2019 [facility] Inr 0.91 Normal 0.82-1.[address] [place] [address] [phone] Laboratory test 08/11/2019 [facility] Partial 34.7 Normal 26.0 -38.[address] [place] [address] PTT [phone] CBC Auto Diff 08/11/2019 [facility] White Blood 4.5 10^3/uL Normal 3.5-10.[address] [place] [address] [phone] Red Blood Count 3.60 10^6/uL Low 3.70-4.87 Hemoglobin 10.9 g/dL Low 12.0-16.0 Hematocrit 33 % Low 35-47 Mean Corpuscular Volume 91 fL Normal 80-97 Mean Corpuscular Hemoglobin 30 pg Normal 27-31 Mean Corpuscular HGB Conc 33 g/dL Normal 31-36 Red Cell Distribution Width 14 % Normal 10-15 Platelet Count 275 10^3/uL Normal 150-450 Mean Platelet Volume 6.6 fL Low 7.4-10.4 Abs Neutrophils 2.8 10^3/uL Normal 1.5-7.7 Abs Lymphocytes 1.2 10^3/uL Normal 1.0-4.8 Abs Monocytes 0.4 10^3/uL Normal 0-0.8 Abs Eosinophils 0.1 10^3/uL Normal 0-0.6 Abs Basophils 0.0 10^3/uL Normal 0-0.2 Abs Nucleated RBC 0.0 10^3/uL Granulocyte % 62.9 % Lymphocyte % 25.7 % Monocyte % 8.1 % Eosinophil % 2.3 % Basophil % 1.0 % Nucleated Red Blood Cells % 0.1 Basic Metabolic 08/11/2019 [facility] Sodium 139 mmol/L Normal 135-[address] [place] [address] [phone] Potassium 4.1 mmol/L Normal 3.5-5.0 Chloride 103 mmol/L Normal 101-111 Co2 Carbon Dioxide 29 mmol/L Normal 22-32 Anion Gap 7 mmol/L Normal 2-11 Glucose 106 mg/dL High 70-100 Blood Urea Nitrogen 25 mg/dL High 6-24 Creatinine 1.17 mg/dL High 0.51-0.95 BUN/Creatinine Ratio 21.4 High 8-20 Calcium 8.9 mg/dL Normal 8.6-10.3 Egfr Non- 43.9 >60 Egfr 53.1 >60 2 1 Standard intensity warfarin therapeutic range: 2.0-3.0 High intensity warfarin therapeutic range: 2.5-3.5 2 Because ethnic data is not always [...] 15-29 5 Kidney failure <15 (or dialysis) Procedures Date Code Description Status 07/11/2019 96048 Implantable Cardio System Loop Recorder Sys Remota Data Completed [employer] 07/11/2019 90266 Interrogation Dev Loop Recorder Incl Physician Completed Analysis,Rev,Repor 06/10/2019 45825 Implantable Cardio System Loop Recorder Sys Remota Data Completed [employer] 06/10/2019 63696 Interrogation Dev Loop Recorder Incl Physician Completed Analysis,Rev,Repor 05/10/2019 83161 Implantable Cardio System Loop Recorder Sys Remota Data Completed [employer] 05/10/2019 65049 Interrogation Dev Loop Recorder Incl Physician Completed Analysis,Rev,Repor 04/09/2019 53285 Implantable Cardio System Loop Recorder Sys Remota Data Completed [employer] 04/09/2019 19595 Interrogation Dev Loop Recorder Incl Physician Completed Analysis,Rev,Repor 03/09/2019 57632 Implantable Cardio System Loop Recorder Sys Remota Data Completed [employer] 03/09/2019 89047 Interrogation Dev Loop Recorder Incl Physician Completed Analysis,Rev,Repor 03/04/2019 56451 EKG Tracing & Interpretation Completed Medical Devices Description No Information Available Encounters Type Date Location Provider Dx Diagnosis Office Visit 03/04/2019 [facility] Ria Brothers, I63.9 Cerebral 4:00p Of [facility] Rama infarction, unspecified I10 Essential (primary) hypertension E78.5 Hyperlipidemia, unspecified Z95.818 Presence of other cardiac implants and grafts Assessments Date Code Description Provider 08/18/2019 I49.5 Sick sinus syndrome Ria Brothers M.D. 08/18/2019 Z95.0 Presence of cardiac pacemaker Ria Brothers M.D. 07/11/2019 I49.5 Sick sinus syndrome Ria Brothers M.D. 07/11/2019 I63.9 Cerebral infarction, unspecified Ria Brothers M.D. 07/11/2019 Z95.818 Presence of other cardiac implants and grafts Ria Brothers M.D. 06/10/2019 I49.5 Sick sinus syndrome Ria Brothers M.D. 06/10/2019 I63.9 Cerebral infarction, unspecified iRa Brothers M.D. 06/10/2019 Z95.818 Presence of other cardiac implants and grafts Ria Brothers M.D. 05/10/2019 I49.5 Sick sinus syndrome Ria Brothers M.D. 05/10/2019 I63.9 Cerebral infarction, unspecified Ria Brothers M.D. 05/10/2019 Z95.818 Presence of other cardiac implants and grafts Ria Brothers M.D. 04/09/2019 I49.5 Sick sinus syndrome Ria Brothers M.D. 04/09/2019 I63.9 Cerebral infarction, unspecified Ria Brothers M.D. 04/09/2019 Z95.818 Presence of other cardiac implants and grafts Ria Brothers M.D. 03/09/2019 I49.5 Sick sinus syndrome Ria Brothers M.D. 03/09/2019 I63.9 Cerebral infarction, unspecified Ria Brothers M.D. 03/09/2019 Z95.818 Presence of other cardiac implants and grafts Ria Brothers M.D. 03/04/2019 I63.9 Cerebral infarction, unspecified Ria Brothers M.D. 03/04/2019 I10 Essential (primary) hypertension Ria Brothers M.D. 03/04/2019 E78.5 Hyperlipidemia, unspecified Ria Brothers M.D. 03/04/2019 Z95.818 Presence of other cardiac implants and grafts Ria Brothers M.D. Plan of Treatment Future Appointment(s):09/15/2019 1:00 pm - Ica Pacer Schedule at [facility]09/15/2019 1:30 pm - Ria rBothers M.D. at [facility]08/18/2019 - Ria Brothers M.D.I49.5 Sick sinus plbfuxprZ44.0 Presence of cardiac pacemakerComments:Your incision looks great. OK to use regular sling if you prefer.Follow up:PO 3-5 weeks (Biotronic) with OV, or STEEL CONSTRUCTION WORKER. Pt has forms for DMV I need to fill out. Functional Status Description No Information Available Mental Status Description No Information Available Referrals Description No Information Available
--- OUTSIDE RECORDS SUMMARY | 2019-10-03 07:55 | XMS REPORT ---
:1935 Author Organization [facility] Care Team Providers Name Role Phone Unavailable [...]
--- OUTSIDE RECORDS SUMMARY | 2019-10-03 07:55 | XMS REPORT ---
:1935 Author Organization [facility] Care Team Providers Name Role [...]
--- OUTSIDE RECORDS SUMMARY | 2019-10-03 07:55 | XMS REPORT | Continuity of Care Document ---
:1935 External Reference #:[id number] Author Name Ria Brothers M.D. (transmitted by agent of provider Jenna Houser) Address [address] [place] [phone] Care Team Providers Name Role Phone King Andrade MD - Family Care Team Information Disaster Director [phone] Medicine Roxanne José PA - Physician Care Team Information Disaster Director [phone] Core Oven Tender Problems Active Problems Provider Date Trigeminal neuralgia [...] Unknown Never Smoked Cigarettes Smoking Status Reviewed: 09/15/19 Never Smoked Cigarettes ETOH Use Never used [...] twice a day Rama Rich Tablets Atenolol 1 tab by mouth 60tabs Qutaybwhit S. 50mg Tablets twice daily Rama Tubbs Vitamin B-12 1 tab po every Unknown Natural day 500mcg Tablets Atorvastatin Calcium take 1 tablet at Unknown 20mg bedtime Tablets Clopidogrel Bisulfate 1 by mouth every 90tabs Gui S. day Rama Rich 75mg Tablets Acetaminophen 2 tablets by Unknown 325mg mouth every 6 Tablets hours as needed for pain/fever Synthroid 1 by mouth every Unknown 88mcg Tablets day Lasix take for leg Unknown pain as needed Flintstones Complete 1 by mouth twice Unknown 60mg daily Chewtabs Medications Administered in Office Medication SIG Qnty Indications Ordering Provider Date Depomedrol 40MG Ruthy Tolliver M.D. 10/09/2017 Injection Inj, Regadenoson, 0.1 MG Mario Tong M.D., 03/18/2016 [facility] Tong M.D., 03/18/2016 Injection JUDY, LENI Technetium TC 99M Mario Tong M.D., 03/18/2016 Tetrofosmin, Per Unit Dose Up LENI KIM To 40 Millicuries Injection Technetium TC 99M Ria Brothers M.D. 03/18/2016 Tetrofosmin, Per Unit Dose Up To 40 Millicuries Injection Immunizations Description No Information Available Vital Signs Date Vital Result Comment 09/15/2019 1:10pm Height 60 inches 5'0" Weight 168.00 lb with shoes Heart Rate 72 /min BP Systolic Sitting 122 mmHg Ra BP Diastolic Sitting 80 mmHg Ra BP Systolic Standing 120 mmHg Ra BP Diastolic Standing 80 mmHg Ra BMI (Body Mass Index) 32.8 kg/m2 Ejection Fraction 55-60% Echo 08/09/18 08/18/2019 1:56pm Height 60 inches 5'0" Weight 173.00 lb with shoes Heart Rate 78 /min BP Systolic Sitting 124 mmHg Rue reg cuff BP Diastolic Sitting 70 mmHg Rue reg cuff BMI (Body Mass Index) 33.8 kg/m2 Ejection Fraction 55-60% date 08/09/18 ECHO Results Test Acquired Date Facility Test Result H/L Range Note Inr/Protime 08/11/2019 [facility] Inr 0.91 Normal 0.82-1.[address] [place] [address] [phone] Laboratory test 08/11/2019 [facility] Partial 34.7 Normal 26.0 -38.[address] [place] [address] PTT [phone] CBC Auto Diff 08/11/2019 [facility] White Blood 4.5 10^3/uL Normal 3.5-10.[address] [place] [address] [phone] Red Blood Count 3.60 10^6/uL Low 3.70-4.87 [...] Blood Cells % 0.1 Basic Metabolic 08/11/2019 [facility] Sodium 139 mmol/L Normal 135-[address] [place] [address] [phone] Potassium 4.1 mmol/L Normal 3.5-5.0 Chloride 103 [...] (or dialysis) Procedures Date Code Description Status 09/15/2019 64603 Pace Maker Eval W/Iterative Adjment Dual Lead Completed 08/11/2019 66676 Implantable Cardio System Loop Recorder Sys Remota Data Completed [facility] 08/11/2019 66017 Interrogation Dev Loop Recorder Incl Physician Completed Analysis,Rev,Repor 08/11/2019 65479 Perm Pacemaker Av Sequential Atrial And Ventricular Completed 07/11/2019 46821 Implantable Cardio System Loop Recorder Sys Remota Data Completed [facility] 07/11/2019 40900 Interrogation Dev Loop Recorder Incl Physician Completed Analysis,Rev,Repor 06/10/2019 02550 Implantable Cardio System Loop Recorder Sys Remota Data Completed [employer] 06/10/2019 41291 Interrogation Dev Loop Recorder Incl Physician Completed Analysis,Rev,Repor 05/10/2019 [id number] Implantable Cardio System Loop Recorder Sys Remota Data Completed [employer] 05/10/2019 31283 Interrogation Dev Loop Recorder Incl Physician Completed Analysis,Rev,Repor 04/09/2019 09115 Implantable Cardio System Loop Recorder Sys Remota Data Completed [facility] 04/09/2019 06753 Interrogation Dev Loop Recorder Incl Physician Completed Analysis,Rev,Repor Medical Devices Description No Information Available Encounters Description No Information Available Assessments Date Code Description Provider 09/15/2019 I49.5 Sick sinus syndrome Ria Brothers M.D. 09/15/2019 I49.5 Sick sinus syndrome [facility] Pacer Schedule 09/15/2019 Z95.0 Presence of cardiac pacemaker Ria Brothers M.D. 09/15/2019 Z95.0 Presence of cardiac pacemaker Ica Pacer Schedule 09/15/2019 I10 Essential (primary) hypertension Ria Brothers M.D. 09/15/2019 Z86.73 Personal history of transient ischemic attack Ria Brothers M.D. (TIA), and cerebral infarction without residual deficits 09/15/2019 M25.512 Pain in left shoulder Ria Brothers M.D. 08/18/2019 I49.5 Sick sinus syndrome Ria Brothers M.D. 08/18/2019 Z95.0 Presence of cardiac pacemaker Ria Brothers M.D. 08/12/2019 Z95.0 Presence of cardiac pacemaker Ria Brothers M.D. 08/11/2019 I63.9 Cerebral infarction, unspecified Ria Brothers M.D. 08/11/2019 I49.5 Sick sinus syndrome Ria Brothers M.D. 08/11/2019 Z95.818 Presence of other cardiac implants and grafts Ria Brothers M.D. 07/11/2019 I49.5 Sick sinus syndrome Ria Brothers M.D. 07/11/2019 I63.9 Cerebral infarction, unspecified Ria Brothers M.D. 07/11/2019 Z95.818 Presence of other cardiac implants and grafts Ria Brothers M.D. 06/10/2019 I49.5 Sick sinus syndrome Ria Brothers M.D. 06/10/2019 I63.9 Cerebral infarction, unspecified Rai Brothers M.D. 06/10/2019 Z95.818 Presence of other [...] Ria Brothers M.D. Plan of Treatment Future Appointment(s):03/13/2020 1:30 pm - Qi Ward N.P. at [facility]03/13/2020 1:00 pm - [facility] Pacer Schedule at [facility]09/15/2019 - Ria Brothers M.D.I49.5 Sick sinus ctmsmbseO57.0 Presence of cardiac pacemakerComments:Your incision looks great. OK to do regular unrestricted activity.Follow up:6 month Pacer check 6 month OV, LEAD SYSTEMS DEVELOPER or MDRecommendations:We can leave event monitor in or take out, non urgent decision.I10 Essential (primary) hypertensionComments:Well controlledRecommendations:Continue Atenalol at your current dose for BP control and extra heart beats.Z86.73 Personal history of transient ischemic attack (TIA) , and cerebral infarction without residualdeficitsComments:On leudoeX69.512 Pain in left shoulderComments:Sounds musculoskeletal and exam c/w with this.Follow up:For shoulder and carpal tunnel f/u with Roxanne José (or Dr Rich). Functional Status Description No Information Available Mental Status Description No Information Available Referrals Description No Information Available
--- OUTSIDE RECORDS SUMMARY | 2019-10-03 07:55 | XMS REPORT ---
:1935 Author Organization [facility] Care Team Providers Name Role Phone Unavailable [...]
--- NOTE | 2019-10-03 07:57 | UC ---
Head Injury HPI - HPI Summary HPI Summary: 84 yo female presents with head injury. She drove herself here. She tells me that around 0400 this am she was sleeping on the couch and "had a dream" that she needed to go to the bathroom. The next thing she remembers is being on the ground next to the couch. She thinks she stood up to go to the bathroom and then fell to the floor. She thinks she hit her head hard as she has a mild headache at the top of her head - has had this pain before with previous head injuries. She also endorses some mild neck pain and left shoulder pain as she thinks she landed on her left head/neck/shoulder. States no LOC, but fall was unwitnessed. Was unable to get to her feet herself and notes that she remained on the floor calling out for her for 10-15 minutes before he arrived to help her. She had a head injury with traumatic hemorrhage in december 2018 requiring hospitalization. She also has sick sinus syndrome with a defib placement and pacemaker placement as recent as 07/2019. She denies numbness, tingling, vision change, vomiting, SOB, chest pain. - History Of Current Complaint Stated Complaint: HEAD INJURY Time Seen by Provider: 10/03/19 07:56 Hx Obtained From: Patient Hx Last Menstrual Period: post Onset/Duration: Sudden Onset Severity Currently: Severe Severity Initially: Severe Pain Intensity: 9 Pain Scale Used: 0-10 Numeric - Allergies/Home Medications Allergies/Adverse Reactions: Allergies Allergy/AdvReac Type Severity Reaction Status Date / Time nabumetone [From Relafen] Allergy Swelling Verified 10/03/19 08:02 Of Face,Lips,& Throat Sulfa (Sulfonamide Allergy Rash Verified 10/03/19 08:02 Antibiotics) Home Medications: Home Medications Trolamine Salicylate/Aloe Vera [Aspercreme 10% Cream] 1 dose TOPICAL DAILY PRN 10/03/19 [History Confirmed 10/03/19] PMH/Surg Hx/FS Hx/Imm Hx - Additional Past Medical History Additional PMH: Sick sinus syndrome TBI Endocrine History: Hypothyroidism Cardiovascular History: Hypertension - Surgical History Surgical History: Yes Surgery Procedure, Year, and Place: HYSTERECTOMY 1984-APPENDECTOMY AGE 15- DETACHED RETINA-CLEARED BY ORBIT XRAY IN 2003. [employer] 11-OK FOR UP TO 3T-PLACED AT [facility] [place] 06/2016-ALL INFO DOCUMENTED - Family History Known Family History: Positive: Hypertension, Renal Disease, Other - no breast cancer Negative: Respiratory Disease, Seizure Disorder - Social History Occupation: Retired Lives: With Family Alcohol Use: Rare Substance Use Type: None Smoking Status (MU): Never Smoked Tobacco - Immunization History Most Recent Influenza Vaccination: July 2019 Most Recent Pneumonia Vaccination: 2016 Review of Systems All Other Systems Reviewed And Are Negative: No Constitutional: Positive: Negative Skin: Positive: Negative Eyes: Positive: Negative ENT: Positive: Negative Respiratory: Positive: Negative Cardiovascular: Positive: Negative Gastrointestinal: Positive: Negative Genitourinary: Positive: Negative Motor: Positive: Negative Neurovascular: Positive: Negative Musculoskeletal: Positive: Other: - Left shoulder pain Neurological: Positive: Headache Psychological: Positive: Negative Physical Exam - Summary Physical Exam Summary: GENERAL: NAD. WDWN. SKIN: No rashes, sores, ulcers, masses, lesions. HEENT: Head: AT/NC. No raccoon eyes or battles sign. Eyes: PERRLA. EOM intact. Ears: Hearing grossly normal. No hemotympanum NECK: In kaela collar. No point tenderness on vetebrae. CHEST: CTAB. No r/r/w. Breathing comfortably and in no distress. CV: Pulses intact. Brisk cap refill. ABDOMEN: Soft. NTTP. Bowel sounds present MSK: FROM in B/L UEs and LEs with symmetric strength. NEURO: A&Ox3. Soirim-fa-fhwj are intact. Normal speech. No facial drooping. PSYCH: Age appropriate behavior. Triage Information Reviewed: Yes Vital Signs: Vital Signs: Temp Pulse Resp BP Pulse Ox 95.7 F 118 16 147/56 97 10/03/19 07:58 10/03/19 07:58 10/03/19 07:58 10/03/19 07:58 10/03/19 07:58 Vital Signs Reviewed: Yes Diagnostics - EKG Summary of EKG Findings: EKG atrial paced 80bpm. Head Injury Course/Dx - Course Course Of Treatment: EKG as above. I suspect pt had an orthostatic episode and fell to the floor causing her head injury. She is currently well appearing and stable, but given her hx of traumatic CVA and cardiac history I cannot be sure this wasn't a syncopal episode of cardiac/neurologic origin. Given her neck pain, she was placed in a kaela collar. I discussed with pt the need for a higher level of care including CT scanning, cardiac monitoring, and observation and recommended transfer to the ED via EMS. She was agreeable to this. EMS called and pt left in stable condition. Report called to Dr. Estrada in the ED - Differential Dx/Diagnosis Provider Diagnosis: Fall, Head injury Discharge ED - Sign-Out/Discharge Documenting (check all that apply): Patient Departure All imaging exams completed and their final reports reviewed: No Studies - Discharge Plan Condition: Stable Disposition: TRANS HIGHER LVL OF CARE FAC Referrals: Roxanne José PA [Primary Care Provider] - - Billing Disposition and Condition Condition: STABLE Disposition: Trans Higher Lvl of Care Fac
[2019-10-03 08:11] VITALS: BP 147/56
== END 2019-10-03 08:58 | disposition short-term general hospital (02) ==
LOC: UCEAST 07:46
DX: S09.90XA Unspecified injury of head, initial encounter (principal); I10 Essential (primary) hypertension; M25.512 Pain in left shoulder; I49.5 Sick sinus syndrome; Z88.6 Allergy status to analgesic agent; Z88.2 Allergy status to sulfonamides; Z87.820 Personal history of traumatic brain injury; W18.30XA Fall on same level, unspecified, initial encounter; Y92.9 Unspecified place or not applicable; Z95.0 Presence of cardiac pacemaker; Z87.442 Personal history of urinary calculi; Z86.73 Personal history of transient ischemic attack (TIA), and cerebral infarction without residual deficits; Z79.899 Other long term (current) drug therapy; M54.2 Cervicalgia; E11.9 Type 2 diabetes mellitus without complications; E03.9 Hypothyroidism, unspecified; D64.9 Anemia, unspecified; E78.00 Pure hypercholesterolemia, unspecified; K21.9 Gastro-esophageal reflux disease without esophagitis; F41.9 Anxiety disorder, unspecified; F32.9 Major depressive disorder, single episode, unspecified; Z90.89 Acquired absence of other organs; Z79.890 Hormone replacement therapy
CPT/HCPCS: 99213; G0463

== ENCOUNTER 2019-10-03 09:25 | Emergency (ER) | payer MEDICARE, BC, OTHER ==
--- NOTE | 2019-10-03 09:28 | ED ---
Head Injury - HPI Summary HPI Summary: 84-year-old female on Plavix with a significant past medical history of stroke, sick sinus syndrome with pace maker placement, hypothyroidism, anemia, hypertension, intracranial hemorrhage post fall December 2018 presents to the emergency Department today status post fall this morning. Patient states she does not remember the cause for her fall however she was "tired and walking to go to the bathroom". She denies loss of consciousness. Patient is currently endorsing left shoulder pain as well as mild neck pain. Patient has full range of motion of her left shoulder. Family and social history noncontributory. Patient denies fever, chest pain, abdominal pain, pain urination, rash, shortness breath. Patient is resting comfortably and endorses no neurological deficits or headache/ changes in vision. - History Of Current Complaint Stated Complaint: SHOULDER INJURY PER EMS Time Seen by Provider: 10/03/19 09:27 Hx Obtained From: Patient Hx Last Menstrual Period: post Mechanism Of Injury: Fall From A Standing Position Onset/Duration: Started Hours Ago Onset of Pain: Immediate Severity Currently: Mild Severity Initially: Mild Pain Scale Used: 0-10 Numeric Character: Aching Associated Signs And Symptoms: Neck Pain Related History: Similar Episode/Dx as - Intracranial hemorrhage status post fall in December 2018 Anticoagulant Therapy: Platelet Inhibitors - Allergies/Home Medications Allergies/Adverse Reactions: Allergies Allergy/AdvReac Type Severity Reaction Status Date / Time nabumetone [From Relafen] Allergy Swelling Verified 10/03/19 09:33 Of Face,Lips,& Throat Sulfa (Sulfonamide Allergy Rash Verified 10/03/19 09:33 Antibiotics) Home Medications: Home Medications Diclofenac Sodium [Diclofono] 2 gm TOPICAL QID MDD 16 gm 10/03/19 [History Confirmed 10/03/19] Levothyroxine TAB* [Synthroid 88 MCG TAB*] 88 mcg PO QAM 10/03/19 [History Confirmed 10/03/19] Pediatric Multivitamin No.136 [Children Multivitamin] 1 each PO BID 10/03/19 [ History Confirmed 10/03/19] Sodium Chloride 2% OPTH.KOBE* [Karolina 128 Opth 2% Kobe*] 1 drop BOTH EYES BID [History Confirmed 10/03/19] Triamcinolone 0.1% CREAM(NF) [Kenalog Cream 0.1%(NF)] 1 applic TOPICAL BID PRN 10/03/19 [History Confirmed 10/03/19] PMH/Surg Hx/FS Hx/Imm Hx Endocrine/Hematology History: Reports: Hx Diabetes - Type 2 per history, Hx Thyroid Disease, Hx Anemia Denies: Hx Unexplained Bleeding Cardiovascular History: Reports: Hx Hypercholesterolemia, Hx Hypertension, Hx Valvular Heart Disease - MVP Denies: Hx Aneurysm, Hx Angina, Hx Angioplasty, Hx Auto Implanted Cardiovert Defib, Hx Cardiac Arrest, Hx Cardiomegaly, Hx Congenital Heart Disease, Hx Congestive Heart Failure, Hx Coronary Artery Disease, Hx Deep Vein Thrombosis, Hx Embolism, Hx Hypotension, Hx Myocardial Infarction, Hx Pacemaker/ICD, Hx Peripheral Vascular Disease, Hx Rheumatic Fever, Hx Syncope, Other Cardiovascular Problems/Disorders Respiratory History: Denies: Hx Asthma, Hx Chronic Obstructive Pulmonary Disease (COPD) GI History: Reports: Hx Gastroesophageal Reflux Disease History: Reports: Hx Kidney Stones, Hx Renal Disease Musculoskeletal History: Reports: Hx Arthritis Sensory History: Reports: Hx Cataracts, Hx Contacts or Glasses, Hx Eye Injury - Retina detachment on left eye, Hx Hearing Aid, Hx Hearing Problem Opthamlomology History: Reports: Hx Cataracts, Hx Contacts or Glasses, Hx Eye Injury - Retina detachment on left eye Neurological History: Reports: Hx Transient Ischemic Attacks (TIA), Other Neuro Impairments/Disorders - Pt states tegretol used for right cheek, trigeminal neuralgia Denies: Hx Dementia, Hx Developmental Delay, Hx Headaches, Hx Migraine, Hx Nerve Disease, Hx Seizures, Hx Spinal Cord Injury Psychiatric History: Reports: Hx Anxiety, Hx Depression, Hx Panic Disorder - Cancer History Hx Chemotherapy: No Hx Radiation Therapy: No - Surgical History Surgery Procedure, Year, and Place: HYSTERECTOMY 1984-APPENDECTOMY AGE 15- DETACHED RETINA-CLEARED BY ORBIT XRAY IN 2003. MEDTRONIC LINQ 11-OK FOR UP TO 3T-PLACED AT [facility] [place] 06/2016-ALL INFO DOCUMENTED Hx Anesthesia Reactions: No - Immunization History Date of Tetanus Vaccine: 2012 Date of Influenza Vaccine: Fall 2014 Infectious Disease History: Denies: Hx of Known/Suspected MRSA - Family History Known Family History: Positive: Hypertension, Renal Disease, Other - no breast cancer Negative: Respiratory Disease, Seizure Disorder - Social History Alcohol Use: Rare Hx Substance Use: No Substance Use Type: Reports: None Hx Tobacco Use: No Smoking Status (MU): Never Smoked Tobacco Review of Systems Constitutional: Negative Eyes: Negative ENT: Negative Cardiovascular: Negative Respiratory: Negative Gastrointestinal: Negative Genitourinary: Negative Positive: Arthralgia, Myalgia Skin: Negative Neurological: Negative Psychological: Normal All Other Systems Reviewed And Are Negative: Yes Physical Exam - Summary Physical Exam Summary: Patient is in no acute distress. There is no midline tenderness with palpation of cervical spine, thoracic spine, lumbar spine. Patient has full range of motion in her left shoulder elbow and wrist. There is no evidence of acute trauma such as lacerations or abrasions or ecchymosis. PERRLA, no Infante sign or periorbital ecchymosis indicative of basilar skull fracture. No neurological deficits. Patient follows commands well and is oriented 3. Triage Information Reviewed: Yes Vital Signs Reviewed: Yes Appearance: Positive: Well-Appearing, No Pain Distress, Well-Nourished Skin: Positive: Warm, Skin Color Reflects Adequate Perfusion Eyes: Positive: EOMI, CATALINA ENT: Positive: Hearing grossly normal Neck: Positive: Supple, Nontender, No Lymphadenopathy Respiratory/Lung Sounds: Positive: Clear to Auscultation, Breath Sounds Present Cardiovascular: Positive: RRR, S1, S2 Abdomen Description: Positive: Nontender, Soft Bowel Sounds: Positive: Present Musculoskeletal: Positive: Strength/ROM Intact Neurological: Positive: Sensory/Motor Intact, Alert, Oriented to Person Place, Time, Speech Normal Psychiatric: Positive: Normal AVPU Assessment: Alert Procedures - Sedation Patient Received Moderate/Deep Sedation with Procedure: No Diagnostics - Laboratory Result Diagrams: 10/03/19 09:37 10/03/19 09:37 Lab Statement: Any lab studies that have been ordered have been reviewed, and results considered in the medical decision making process. Head Injury Course/Dx Course Of Treatment: Patient was evaluated in the emergency department status post fall. Patient seen and evaluated, vitals stable. EKG was done promptly which shows atrial paced complexes at 73 bpm with no evidence of STEMI. NJ interval is prolonged at 242. These findings are unchanged since previous EKG done on 10/03/2019 at urgent care prior to arrival. CT of the brain and cervical spine were ordered which showed no evidence of acute fracture or intracranial hemorrhage. X-ray of the left shoulder showed no evidence of fracture. Labs returned showing no leukocytosis. There is mild anemia noted with an H&H of 11.2/33. This is the patients baseline. Coagulation studies are within normal limits. There are no significant electrolyte abnormalities. urinalysis is negative for UTI and appears to be a contaminated sample. Patient appears to have suffered no significant trauma from her fall and has no significant medical problems requiring intervention time. She is to follow-up with her primary care provider in 5 days for further evaluation and management of her symptoms. - Diagnoses Differential Diagnosis/HQI/PQRI: Concussion Without LOC, Contusion, Intracranial Bleed, Skull Fracture Provider Diagnoses: Fall, Shoulder pain, Neck pain Discharge ED - Sign-Out/Discharge Documenting (check all that apply): Patient Departure - Discharge Plan Condition: Stable Disposition: HOME Patient Education Materials: Fall Prevention for Older Adults (ED) Referrals: Roxanne José PA [Primary Care Provider] - 5 Days Additional Instructions: You were seen in the emergency department today due to a fall. Imaging was done which showed no evidence of fracture or brain bleed as a result of your fall. Please follow-up with your primary care provider in 5 days for further evaluation and management of your symptoms. Please return to the emergency department immediately if you develop any new or worsening symptoms. - Billing Disposition and Condition Condition: STABLE Disposition: Home - Attestation Statements Provider Attestation: I was available for consult. This patient was seen by the NILSON. The patient was not presented to, seen by, or examined by me. Mateo Estrada MD
[2019-10-03 09:46] LABS: ABS Basophils 0.1 10^3/ul (0-0.2); ABS Eosinophils 0.2 10^3/ul (0-0.6); ABS Lymphocytes 1.3 10^3/ul (1.0-4.8); ABS Monocytes 0.4 10^3/ul (0-0.8); ABS Neutrophils 2.9 10^3/ul (1.5-7.7); Eosinophil % 3.5 %; Hematocrit 33 % (35-47); Hemoglobin 11.2 g/dL (12.0-16.0); Lymphocyte % 26.7 %; Mean Corpuscular HGB Conc 34 g/dL (31-36); Mean Corpuscular Hemoglobin 31 pg (27-31); Mean Corpuscular Volume 91 fL (80-97); Mean Platelet Volume 6.7 fL (7.4-10.4); Platelet Count 260 10^3/uL (150-450); Red Blood Count 3.66 10^6 /uL (3.70-4.87); Red Cell Distribution Width 14 % (10-15); White Blood Count 4.8 10^3/uL (3.5-10.8)
[2019-10-03 09:56] LABS: Activated Partial Thrombo Time 31.7 seconds (26.0-38.0); INR 0.88 (0.82-1.09)
[2019-10-03 10:07] LABS: Albumin 3.9 g/dL (3.2-5.2); Albumin/Globulin Ratio 1.4 (1-3); BUN/Creatinine Ratio 20.7 (8-20); C Reactive Protein 1.63 mg/L (<8.01); Calcium 8.6 mg/dL (8.6-10.3); EGFR African American 56.4 (>60); EGFR Non-African American 46.6 (>60); Globulin 2.7 g/dL (2-4); Magnesium 2.2 mg/dL (1.9-2.7); Potassium 4.2 mmol/L (3.5-5.0); Total Bilirubin 0.2 mg/dL (0.2-1.0); Total Protein 6.6 g/dL (6.4-8.9)
[2019-10-03 10:23] LABS: Urine Appearance Clear; Urine Bilirubin Negative (Negative); Urine Blood Negative (Negative); Urine Color Yellow; Urine Glucose Negative (Negative); Urine Ketones Negative (Negative); Urine Nitrite Negative (Negative); Urine Protein Negative (Negative); Urine Specific Gravity 1.013 (1.010-1.030); Urine Urobilinogen Negative (Negative)
[2019-10-03 10:34] LABS: Urine Bacteria 1+ (Absent); Urine Red Blood Cell Trace(0-2/hpf) (Absent); Urine Squamous Epithelial Cell Present (Absent); Urine White Blood Cell 2+(11-20/hpf) (Absent)
[2019-10-03 11:35] VITALS: BP 170/77
--- NOTE | 2019-10-05 07:07 | ED ---
Imaging and Labs Follow Up Follow Up Type: Labs/Cultures Labs/Culture Result: klebsiella pna Patient Communication/Plan: Urine culture preliminary grew Klebsiella pneumonia This appears to be contaminated Pt exhibited no symptoms or concerns for UTI while in ED No hx of such Pt afebrile Other Patient Communication/Plan: Pt will not be treated for UTI at this time Provider Diagnoses: Fall, Shoulder pain, Neck pain
== END 2019-10-03 11:35 | disposition home or self-care (01) ==
LOC: ED 09:25
DX: M25.512 Pain in left shoulder (principal); M54.2 Cervicalgia; W18.30XA Fall on same level, unspecified, initial encounter; Y92.009 Unspecified place in unspecified non-institutional (private) residence as the place of occurrence of the external cause; E11.9 Type 2 diabetes mellitus without complications; E03.9 Hypothyroidism, unspecified; D64.9 Anemia, unspecified; E78.00 Pure hypercholesterolemia, unspecified; I10 Essential (primary) hypertension; K21.9 Gastro-esophageal reflux disease without esophagitis; F41.9 Anxiety disorder, unspecified; F32.9 Major depressive disorder, single episode, unspecified; Z90.710 Acquired absence of both cervix and uterus; Z90.89 Acquired absence of other organs; Z86.73 Personal history of transient ischemic attack (TIA), and cerebral infarction without residual deficits; Z87.442 Personal history of urinary calculi; Z95.0 Presence of cardiac pacemaker; Z79.890 Hormone replacement therapy; Z79.899 Other long term (current) drug therapy; Z88.2 Allergy status to sulfonamides; Z88.8 Allergy status to other drugs, medicaments and biological substances
CPT/HCPCS: 36415; 70450; 72125; 80053; 81003; 81015; 83735; 84484; 85025; 85610; 85730; 86140; 87086; 93005; 99283

== ENCOUNTER 2019-11-09 12:47 | Emergency (ER) | payer MEDICARE, BC, OTHER ==
--- NOTE | 2019-11-09 13:03 | ED ---
Complex/Multi-Sys Presentation - HPI Summary HPI Summary: 84 year old F presenting to [facility] accompanied by EMS complains of a sudden onset of dizziness and weakness since earlier today 11/09/2019. Patient reports upset stomach, PASTRANA, abd pain, pain in her arms, and old pain in LEs due to arthritis. Patient denies nausea, emesis, CP, hematochezia, and dysuria. EMS reports a spike of HR to the 120s that was not A-fib that resolved on its own. PMHx of arthritis and irritable bowels. She recently had a pacemaker placed. She reports the onset of her symptoms when she went to turn of her carbon monoxide detector but says that her home did not have noticeable levels per inspectors. The patient rates the pain 0/10 in severity. Symptoms aggravated by nothing. Symptoms alleviated by nothing. - History Of Current Complaint Time Seen by Provider: 11/09/19 12:50 Hx Obtained From: Patient, EMS Onset/Duration: Sudden Onset, Still Present Timing: Constant Severity Initially: Mild Aggravating Factor(s): nothing Alleviating Factor(s): nothing Associated Signs And Symptoms: Positive: Dizziness, Weakness, Headache, Abdominal Pain - LLQ. Negative: Chest Pain, Nausea, Vomiting, Dysuria - Allergies/Home Medications Allergies/Adverse Reactions: Allergies Allergy/AdvReac Type Severity Reaction Status Date / Time nabumetone [From Relafen] Allergy Swelling Verified 10/03/19 09:33 Of Face,Lips,& Throat Sulfa (Sulfonamide Allergy Rash Verified 10/03/19 09:33 Antibiotics) PMH/Surg Hx/FS Hx/Imm Hx Endocrine/Hematology History: Reports: Hx Diabetes - Type 2 per history, Hx Thyroid Disease, Hx Anemia Denies: Hx Unexplained Bleeding Cardiovascular History: Reports: Hx Hypercholesterolemia, Hx Hypertension, Hx Valvular Heart Disease - MVP Denies: Hx Aneurysm, Hx Angina, Hx Angioplasty, Hx Auto Implanted Cardiovert Defib, Hx Cardiac Arrest, Hx Cardiomegaly, Hx Congenital Heart Disease, Hx Congestive Heart Failure, Hx Coronary Artery Disease, Hx Deep Vein Thrombosis, Hx Embolism, Hx Hypotension, Hx Myocardial Infarction, Hx Pacemaker/ICD, Hx Peripheral Vascular Disease, Hx Rheumatic Fever, Hx Syncope, Other Cardiovascular Problems/Disorders Respiratory History: Denies: Hx Asthma, Hx Chronic Obstructive Pulmonary Disease (COPD) GI History: Reports: Hx Gastroesophageal Reflux Disease History: Reports: Hx Kidney Stones, Hx Renal Disease Musculoskeletal History: Reports: Hx Arthritis Sensory History: Reports: Hx Cataracts, Hx Contacts or Glasses, Hx Eye Injury - Retina detachment on left eye, Hx Hearing Aid, Hx Hearing Problem Opthamlomology History: Reports: Hx Cataracts, Hx Contacts or Glasses, Hx Eye Injury - Retina detachment on left eye Neurological History: Reports: Hx Transient Ischemic Attacks (TIA), Other Neuro Impairments/Disorders - Pt states tegretol used for right cheek, trigeminal neuralgia Denies: Hx Dementia, Hx Developmental Delay, Hx Headaches, Hx Migraine, Hx Nerve Disease, Hx Seizures, Hx Spinal Cord Injury Psychiatric History: Reports: Hx Anxiety, Hx Depression, Hx Panic Disorder - Cancer History Hx Chemotherapy: No Hx Radiation Therapy: No - Surgical History Surgery Procedure, Year, and Place: HYSTERECTOMY 1984-APPENDECTOMY AGE 15- DETACHED RETINA-CLEARED BY ORBIT XRAY IN 2003. MEDTRONIC LINQ 11-OK FOR UP TO 3T-PLACED AT [facility] [place] 06/2016-ALL INFO DOCUMENTED Hx Anesthesia Reactions: No - Immunization History Date of Tetanus Vaccine: 2012 Date of Influenza Vaccine: Fall 2014 Infectious Disease History: No Infectious Disease History: Denies: Hx of Known/Suspected MRSA, Traveled Outside the [place] in Last 30 Days - Family History Known Family History: Positive: Hypertension, Renal Disease, Other - no breast cancer Negative: Respiratory Disease, Seizure Disorder - Social History Alcohol Use: Rare Hx Substance Use: No Substance Use Type: Reports: None Hx Tobacco Use: No Smoking Status (MU): Never Smoked Tobacco Review of Systems Negative: Chest Pain Gastrointestinal: Negative - neagtive - hematochezia, Other - upset stomach Positive: Abdominal Pain - LLQ. Negative: Vomiting, Nausea Negative: dysuria Musculoskeletal: Other - Pain in arms and old pain in legs due to arthritis Neurological: Other - dizziness Positive: Headache, Weakness All Other Systems Reviewed And Are Negative: Yes Physical Exam - Summary Physical Exam Summary: Constitutional: Well-developed, Well-nourished, Alert. (-) Distressed Skin: Warm, Dry HENT: Normocephalic; Atraumatic Eyes: Conjunctiva normal Neck: Musculoskeletal ROM normal neck. (-) JVD, (-) Stridor, (-) Tracheal deviation Cardio: Rhythm regular, rate normal, Heart sounds normal; Intact distal pulses; The pedal pulses are 2+ and symmetric. Radial pulses are 2+ and symmetric. (-) Murmur Pulmonary/Chest wall: Effort normal. (-) Respiratory distress, (-) Wheezes, (-) Rales Abd: soft, mild LLQ tenderness Musculoskeletal: (-) Edema Lymph: (-) Cervical adenopathy Neuro: Alert, Oriented x3 Psych: Mood and affect Normal Triage Information Reviewed: Yes Vital Signs On Initial Exam: Initial Vitals Temp Pulse Resp BP Pulse Ox 97.6 F 75 16 148/69 96 11/09/19 12:50 11/09/19 12:50 11/09/19 12:50 11/09/19 12:50 11/09/19 12:50 Vital Signs Reviewed: Yes Procedures - Sedation Patient Received Moderate/Deep Sedation with Procedure: No Diagnostics - Vital Signs Vital Signs Temp Pulse Resp BP Pulse Ox 11/09/19 12:50 97.6 F 75 16 148/69 96 - Laboratory Result Diagrams: 11/09/19 13:04 11/09/19 13:04 Lab Statement: Any lab studies that have been ordered have been reviewed, and results considered in the medical decision making process. - EKG 1328 Summary of EKG Findings: EKG at 1328 reveals atrial paced rhythm at 67 bpm. No ischemic changes. has reviewed and interpreted this report. Complex Multi-Symp Course/Dx Course Of Treatment: 84 year old F presenting to [facility] complains of a sudden onset of dizziness and weakness since earlier today 11/09/2019. Physical exam findings: Abd: soft, mild LLQ tenderness. Bloodwork results with no significant abnormalities except for L Hgb, L MPV, H Creatinine, H Glucose. EKG at 1328 reveals atrial paced rhythm at 67 bpm. No ischemic changes. Patient asymptomatic in the ED, ambulated around Department, steady gait, feels well for discharge home. Patient awaiting her son to pick her up. Patient was told to follow up with her PCP in 1-2 days. Patient was instructed to return to Emergency Department for new or worsening symptoms. Patient understands and is agreeable to this plan. - Diagnoses Provider Diagnoses: Weakness Discharge ED - Sign-Out/Discharge Documenting (check all that apply): Patient Departure - discharge - Discharge Plan Condition: Stable Disposition: HOME Patient Education Materials: Weakness (ED) Referrals: Roxanne José PA [Primary Care Provider] - 2 Days Additional Instructions: Follow up with your primary care provider in 1-2 days. Return to the Emergency Department with new or worsening symptoms. - Billing Disposition and Condition Condition: STABLE Disposition: Home - Attestation Statements Document Initiated by Frederick: Yes Documenting Scribe: Blas Pina Provider For Whom Frederick is Documenting (Include Credential): Mitul Shaw DO Scribe Attestation: IBlas, scribed for Mitul Shaw DO on 11/09/19 at 1426. Scribe Documentation Reviewed: Yes Provider Attestation: The documentation as recorded by the Blas short accurately reflects the service I personally performed and the decisions made by me, Mitul Shaw DO Status of Scribe Document: Viewed
[2019-11-09 13:16] LABS: ABS Basophils 0.1 10^3/ul (0-0.2); ABS Eosinophils 0.1 10^3/ul (0-0.6); ABS Lymphocytes 1.2 10^3/ul (1.0-4.8); ABS Monocytes 0.2 10^3/ul (0-0.8); ABS Neutrophils 3.8 10^3/ul (1.5-7.7); Eosinophil % 1.5 %; Hematocrit 35 % (35-47); Hemoglobin 11.7 g/dL (12.0-16.0); Lymphocyte % 21.9 %; Mean Corpuscular HGB Conc 34 g/dL (31-36); Mean Corpuscular Hemoglobin 30 pg (27-31); Mean Corpuscular Volume 91 fL (80-97); Mean Platelet Volume 6.8 fL (7.4-10.4); Platelet Count 264 10^3/uL (150-450); Red Blood Count 3.84 10^6 /uL (3.70-4.87); Red Cell Distribution Width 14 % (10-15); White Blood Count 5.4 10^3/uL (3.5-10.8)
[2019-11-09 13:41] LABS: Albumin/Globulin Ratio 1.6 (1-3); BUN/Creatinine Ratio 19.5 (8-20); Calcium 8.7 mg/dL (8.6-10.3); EGFR African American 55.2 (>60); EGFR Non-African American 45.7 (>60); Globulin 2.5 g/dL (2-4); Potassium 4.2 mmol/L (3.5-5.0); Total Bilirubin 0.3 mg/dL (0.2-1.0); Total Protein 6.5 g/dL (6.4-8.9)
--- OUTSIDE RECORDS SUMMARY | 2019-11-09 13:42 | XMS REPORT | Continuity of Care Document ---
:1935 External Reference #:[id number] Author Name Qi Ward N.P. (transmitted by agent of provider Renetta Oliveira) Address [facility] [place] [address] Care Team Providers Name Role Phone King Andrade MD - Family Care Team Information Tractor Operator Laser Leveling [phone] Medicine Roxanne José PA - Physician Care Team Information Tractor Operator [employer] [phone] Lead Etl Developer Problems Active Problems Provider Date Trigeminal neuralgia [...] Medications SIG Qnty Indications Ordering Date Provider Codey apply to Unknown 09/25/2019 1% Gel affected area four times a day as needed Clonazepam 1 tab three 20tabs Unknown 1mg Tablets times a day . MDD=3 Lexapro 1 po bid 30tabs Unknown 10mg Tablets Refresh Liquigel 1 gtt each eye Unknown 1% prn Solution Carbamazepine 1 tab by mouth 180tabs Gui S. 200mg twice a day Rama Rich Tablets Atenolol 1 tab by mouth 60tabs Briantaelina S. 50mg Tablets twice daily Rama Tubbs [...] MG Mario Tong M.D., 03/18/2016 Injection FACC, LENI Aminophylline Mario Tong M.D., 03/18/2016 Injection LENI KIM Technetium TC 99M Mario Tong M.D., 03/18/2016 Tetrofosmin, Per Unit Dose Up LENI KMI To 40 Millicuries Injection Technetium TC 99M [...] Test Result H/L Range Note Inr/Protime 08/11/2019 [facility] Inr 0.91 Normal 0.82-1.[address] [place] [address] [phone] Laboratory test 08/11/2019 [facility] Partial 34.7 Normal 26.0 -38.[address] Thrombo [place] [address] PTT [phone] CBC Auto Diff 08/11/2019 [facility] White Blood 4.5 10^3/uL Normal 3.5-10.[address] [place] [address] [phone] Red Blood Count 3.60 10^6/uL Low 3.70-4.87 [...] Blood Cells % 0.1 Basic Metabolic 08/11/2019 [facility] Sodium 139 mmol/L Normal 135-[address] [place] [address] [phone] Potassium 4.1 mmol/L Normal 3.5-5.0 Chloride 103 [...] dialysis) Procedures Date Code Description Status 09/15/2019 10304 Pace Maker Eval W/Iterative Adjment Dual Lead Completed 09/15/2019 73459 Pace Maker Eval W/Iterative Adjment Dual Lead Completed 08/12/2019 89371 EKG, Interpretation Only Completed 08/11/2019 89991 EKG, Interpretation Only Completed 08/11/2019 11040 Implantable Cardio System Loop Recorder Sys Remota Data Completed Acquist[facility] 08/11/2019 87835 Interrogation Dev Loop Recorder Incl Physician Completed Analysis,Rev,Repor 08/11/2019 88948 Perm Pacemaker Av Sequential Atrial And Ventricular Completed 07/11/2019 58147 Implantable Cardio System Loop Recorder Sys Remota Data Completed [facility]quist[facility] 07/11/2019 32407 Interrogation Dev Loop Recorder Incl Physician Completed Analysis,Rev,Repor 06/10/2019 62596 Implantable Cardio System Loop Recorder Sys Remota Data Completed [facility] 06/10/2019 74840 Interrogation Dev Loop Recorder Incl Physician Completed Analysis,Rev,Repor 05/10/2019 70410 Implantable Cardio System Loop Recorder Sys Remota Data Completed [facility] 05/10/2019 44188 Interrogation Dev Loop Recorder Incl Physician Completed Analysis,Rev,Repor Medical Devices Description No Information Available Encounters Type Date Location Provider Dx Diagnosis Office Visit 09/15/2019 [facility] Ria Brothers, I49.5 Sick sinus 1:30p Of Operations Label Clerk M.DDiana syndrome Z95.0 Presence of cardiac pacemaker I10 Essential (primary) hypertension Z86.73 Prsnl hx of TIA (TIA), and cereb infrc w/o resid deficits M25.512 Pain in left shoulder Assessments Date Code Description Provider 09/15/2019 I49.5 [...] of cardiac pacemaker Ria Brothers M.D. 08/12/2019 R94.31 Abnormal electrocardiogram [ECG] [EKG] Ria Brothers M.D. 08/12/2019 Z95.0 Presence of cardiac pacemaker Ria Brothers M.D. 08/11/2019 Z95.0 Presence of cardiac pacemaker Ria Brothers M.D. 08/11/2019 Z95.818 Presence of other cardiac implants and grafts Ria Brothers M.D. 08/11/2019 I63.9 Cerebral infarction, [...] Brothers M.D. 06/10/2019 I63.9 Cerebral infarction, unspecified Ria Brothers M.D. 06/10/2019 Z95.818 Presence of other cardiac implants and grafts Ria Brothers M.D. 05/10/2019 I49.5 Sick sinus syndrome Ria Brothers M.D. 05/10/2019 I63.9 Cerebral infarction, unspecified Ria Brothers M.D. 05/10/2019 Z95.818 Presence of other cardiac implants and grafts Ria Brothers M.D. Plan of Treatment Future Appointment(s):03/13/2020 1:30 pm - Qi Ward NIsela at [facility]03/13/2020 1:00 pm - [facility] Pacer Schedule at [facility]09/15/2019 - Ria Brothers M.D.I49.5 Sick sinus caifohayE77.0 Presence of cardiac pacemakerComments:Your incision looks great. OK to do regular unrestricted activity.Follow up:6 month Pacer check 6 month OV, TILE SHADER or MDRecommendations:We can leave event monitor in or take out, non urgent decision.I10 Essential (primary) hypertensionComments:Well controlledRecommendations:Continue Atenalol at your current dose for BP control and extra heart beats.Z86.73 Personal history of transient ischemic attack (TIA) , and cerebral infarction without residualdeficitsComments:On pqfrclI89.512 Pain in left shoulderComments:Sounds musculoskeletal and exam c/w with this.Follow up:For shoulder and carpal tunnel f/u with Roxanne oJsé (or Dr Rich). Functional Status Description No Information Available Mental Status Description No Information Available Referrals Description No Information Available
--- OUTSIDE RECORDS SUMMARY | 2019-11-09 13:42 | XMS REPORT | Continuity of Care Document ---
:1935 External Reference #:[id number] Author Name Qi Ward N.P. (transmitted by agent of provider Jenna Houser) Address [address] 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 Problems Active Problems Provider Date Trigeminal neuralgia [...] Unknown Never Smoked Cigarettes Smoking Status Reviewed: 10/13/19 Never Smoked Cigarettes ETOH Use Never used [...] Available Vital Signs Date Vital Result Comment 10/13/2019 2:33pm Height 60 inches 5'0" Weight 174.00 lb with shoes Heart Rate 72 /min BP Systolic Sitting 126 mmHg Rue reg cuff BP Diastolic Sitting 78 mmHg Rue reg cuff Respiratory Rate 16 /min BMI (Body Mass Index) 34.0 kg/m2 Ejection Fraction 55-60% ECHO 08/09/2018 09/15/2019 1:10pm Height 60 inches 5'0" Weight 168.00 lb with shoes Heart Rate 72 /min BP Systolic Sitting 122 mmHg Ra BP Diastolic Sitting 80 mmHg Ra BP Systolic Standing 120 mmHg Ra BP Diastolic Standing 80 mmHg Ra BMI (Body Mass Index) 32.8 kg/m2 Ejection Fraction 55-60% Echo 08/09/18 Results Test Acquired Date Facility Test Result H/L Range Note Laboratory test 10/13/2019 [facility] Erythrocyte Sed <pending> finding [address] [place] [address] [phone] C Reactive Protein <pending> Inr/Protime 08/11/2019 [facility] Inr 0.91 Normal 0.82-1.[address] [place] [address] [phone] Laboratory test 08/11/2019 [facility] Partial 34.7 Normal 26.0 -38.[address] [place] [address] Time PTT [phone] CBC Auto Diff 08/11/2019 [facility] White Blood 4.5 10^3/uL Normal 3.5-10.[address] [place] [address] [phone] Red Blood Count 3.60 10^6/uL Low 3.70-4.87 [...] Blood Cells % 0.1 Basic Metabolic 08/11/2019 [facility] Sodium 139 mmol/L Normal 135-[address] [place] [address] [phone] Potassium 4.1 mmol/L Normal 3.5-5.0 Chloride 103 [...] dialysis) Procedures Date Code Description Status 09/15/2019 34834 Pace Maker Eval W/Iterative Adjment Dual Lead Completed 09/15/2019 78588 Pace Maker Eval W/Iterative Adjment Dual Lead Completed 08/12/2019 45893 EKG, Interpretation Only Completed 08/11/2019 77382 EKG, Interpretation Only Completed 08/11/2019 75499 Implantable Cardio System Loop Recorder Sys Remota Data Completed [facility] 08/11/2019 53933 Interrogation Dev Loop Recorder Incl Physician Completed Analysis,Rev,Repor 08/11/2019 34405 Perm Pacemaker Av Sequential Atrial And Ventricular Completed 07/11/2019 48166 Implantable Cardio System Loop Recorder Sys Remota Data Completed [facility] 07/11/2019 38845 Interrogation Dev Loop Recorder Incl Physician Completed Analysis,Rev,Repor 06/10/2019 59447 Implantable Cardio System Loop Recorder Sys Remota Data Completed [facility] 06/10/2019 31143 Interrogation Dev Loop Recorder Incl Physician Completed Analysis,Rev,Repor 05/10/2019 44705 Implantable Cardio System Loop Recorder Sys Remota Data Completed [facility] 05/10/2019 78827 Interrogation Dev Loop Recorder Incl Physician Completed Analysis,Rev,Repor Medical Devices Description No Information Available Encounters Type Date Location Provider Dx Diagnosis Office Visit 09/15/2019 [facility] Ria Brothers, I49.5 Sick sinus 1:30p Of Solution Manager M.D. syndrome Z95.0 Presence of cardiac pacemaker I10 Essential (primary) hypertension Z86.73 Prsnl hx of TIA (TIA), and cereb infrc w/o resid deficits M25.512 Pain in left shoulder Assessments Date Code Description Provider 10/13/2019 I49.5 Sick sinus syndrome Qi Ward, N.P. 10/13/2019 Z95.0 Presence of cardiac pacemaker Qi Ward N.P. 10/13/2019 I10 Essential (primary) hypertension Qi Ward, N.P. 10/13/2019 R21 Rash and other nonspecific skin eruption Qi Ward, N.P. 09/15/2019 I49.5 Sick sinus syndrome Ria Brothers [...] 1:30 pm - Qi Ward N.P. at [facility]03/13/2020 1:00 pm - Ica Pacer Schedule at [facility]10/13/2019 - Qi Ward N.P.I49.5 Sick sinus ggpkbpboX69.0 Presence of cardiac mbnjgfbraV18 Essential (primary) hovtejxspuxkG28 Rash and other nonspecific skin eruptionReferral:Shari Love MD, DermatologyFollow up:PO/ OV FINE UNHAIRER 6mo schedule LINQ removal w/ LS and wound check with me 1wk after.Recommendations:Continue using lanacane and benadryl as needed. Functional Status Description No Information Available Mental Status Description No Information Available Referrals Refer to Dr Reason for Referral Status Appt Date Shari Love MD rash on neck; s/p ppm Created [address] [place] [address], [place] [address] [phone]
[2019-11-09 14:18] VITALS: BP 145/70
== END 2019-11-09 14:09 | disposition home or self-care (01) ==
LOC: ED 12:47
DX: R53.1 Weakness (principal); E11.9 Type 2 diabetes mellitus without complications; E07.9 Disorder of thyroid, unspecified; D64.9 Anemia, unspecified; E78.00 Pure hypercholesterolemia, unspecified; I10 Essential (primary) hypertension; K21.9 Gastro-esophageal reflux disease without esophagitis; F41.9 Anxiety disorder, unspecified; F32.9 Major depressive disorder, single episode, unspecified; Z86.73 Personal history of transient ischemic attack (TIA), and cerebral infarction without residual deficits; Z87.442 Personal history of urinary calculi; Z88.2 Allergy status to sulfonamides; Z88.8 Allergy status to other drugs, medicaments and biological substances; Z90.710 Acquired absence of both cervix and uterus; Z90.89 Acquired absence of other organs
CPT/HCPCS: 36415; 80053; 84484; 85025; 93005; 99283

== ENCOUNTER 2021-12-07 16:43 | Inpatient (IN) ==
[2021-12-07] MEDS ORDERED: NS 0.9% 1000 ml BAG 1,000 ML IV ONE (17:42)
[2021-12-07] MEDS ORDERED: Morphine 4 MG/ML VIAL (1 ml) IV ONE (18:14)
[2021-12-07] MEDS ORDERED: Ondansetron 4 mg VIAL 2 MG/ML 2 ml VIAL IV ONE (18:15)
[2021-12-07 18:24] LABS: ABS Lymphocytes 1.4 10^3/ul (1.0-4.8); ABS Monocytes 0.5 10^3/ul (0-0.8); ABS Neutrophils 4.4 10^3/ul (1.5-7.7); Eosinophil % 0.5 %; Hematocrit 36 % (35-47); Hemoglobin 11.9 g/dL (12.0-16.0); Lymphocyte % 21.5 %; Mean Corpuscular HGB Conc 33 g/dL (31-36); Mean Corpuscular Hemoglobin 31 pg (27-31); Mean Corpuscular Volume 93 fL (80-97); Mean Platelet Volume 6.5 fL (7.4-10.4); Platelet Count 306 10^3/uL (150-450); Red Blood Count 3.82 10^6 /uL (3.70-4.87); Red Cell Distribution Width 13 % (10-15); White Blood Count 6.4 10^3/uL (3.5-10.8)
[2021-12-07 18:28] LABS: Urine Appearance Cloudy; Urine Bilirubin Negative (Negative); Urine Blood Negative (Negative); Urine Color Yellow; Urine Glucose Negative (Negative); Urine Ketones Negative (Negative); Urine Nitrite Positive (Negative); Urine Protein Negative (Negative); Urine Specific Gravity 1.009 (1.002-1.030); Urine Urobilinogen Negative (Negative)
[2021-12-07 18:33] LABS: Urine Bacteria 1+ (Absent); Urine Red Blood Cell Absent (Absent); Urine Squamous Epithelial Cell Present (Absent); Urine White Blood Cell 2+(11-20/hpf) (Absent)
[2021-12-07] MEDS ORDERED: cefTRIAXone 1 gm/50 mL NS BAG 1 GM/50 ML BAG IV ONE (18:47)
[2021-12-07 19:09] LABS: Albumin 4.3 g/dL (3.2-5.2); Albumin/Globulin Ratio 2.2 (1-3); Magnesium 1.8 mg/dL (1.9-2.7); Potassium 3.9 mmol/L (3.5-5.0); Total Bilirubin 0.5 mg/dL (0.2-1.0); Total Protein 6.3 g/dL (6.4-8.9); eGFR CKD-EPI 51.1 (>60)
[2021-12-07] MEDS ORDERED: Iodixanol (CONTRAST) 320 MG/ML 100 ML SDV IV ONE (19:41)
[2021-12-07] MEDS ORDERED: Magnesium Sulfate 2 gm BAG 2 GM/50 ML BAG IVPB ONE (23:07)
[2021-12-07] MEDS: Enoxaparin 40 MG/0.4 ML SYR SUBCUT SCH (23:50)
[2021-12-08] MEDS ORDERED: Potassium Chlor 20 meq TAB.ER PO ONE (00:22)
[2021-12-08 00:34] LABS: Urine Creatinine Concentration 47.91 mg/dL
[2021-12-08 00:34] LABS: Osmolality Serum 258 mOsm/kg (275-295)
[2021-12-08 00:39] LABS: Urine Osmo 328 mOsm/kg (150-1150)
[2021-12-08 00:42] LABS: Potassium 3.8 mmol/L (3.5-5.0)
[2021-12-08] MEDS ORDERED: Potassium Chloride LIQUID 20 MEQ/15 ML LIQUID PO ONE (01:21)
[2021-12-08] MEDS ORDERED: NS 0.9% 1000 ml BAG 1,000 ML IV SCH (01:45)
[2021-12-08 02:54] LABS: TSH Ultra Thyroid Stim Horm 0.88 mcIU/mL (0.34-5.60)
[2021-12-08 02:56] LABS: Free T4 0.7 ng/dL (0.61-1.12)
[2021-12-08] MEDS: Ondansetron 4 mg VIAL 2 MG/ML 2 ml VIAL IV PRN ×2 (03:34→09:38)
[2021-12-08 05:47] LABS: ABS Lymphocytes 1.1 10^3/ul (1.0-4.8); ABS Monocytes 0.6 10^3/ul (0-0.8); ABS Neutrophils 4.8 10^3/ul (1.5-7.7); Eosinophil % 0.5 %; Hematocrit 31 % (35-47); Hemoglobin 10.9 g/dL (12.0-16.0); Lymphocyte % 16.1 %; Mean Corpuscular HGB Conc 35 g/dL (31-36); Mean Corpuscular Hemoglobin 32 pg (27-31); Mean Corpuscular Volume 92 fL (80-97); Mean Platelet Volume 6.5 fL (7.4-10.4); Nucleated Red Blood Cells % 0.1; Platelet Count 269 10^3/uL (150-450); Red Blood Count 3.41 10^6 /uL (3.70-4.87); Red Cell Distribution Width 13 % (10-15); White Blood Count 6.5 10^3/uL (3.5-10.8)
[2021-12-08 06:14] LABS: Calcium 8.4 mg/dL (8.6-10.3); Potassium 4.3 mmol/L (3.5-5.0)
[2021-12-08 08:41] LABS: Magnesium 2.3 mg/dL (1.9-2.7)
[2021-12-08 13:58] LABS: Potassium 4.5 mmol/L (3.5-5.0); eGFR CKD-EPI 55.5 (>60)
[2021-12-08] MEDS ORDERED: Furosemide 20 mg/2 ml IV VIAL IV SLOW PU ONE (16:57)
[2021-12-08] MEDS: cefTRIAXone 1 gm/50 mL NS BAG 1 GM/50 ML BAG IVPB SCH (17:21)
[2021-12-08] MEDS: Enoxaparin 40 MG/0.4 ML SYR SUBCUT SCH (20:52)
[2021-12-08 21:12] LABS: Calcium 8.8 mg/dL (8.6-10.3); eGFR CKD-EPI 37.5 (>60)
[2021-12-08] MEDS ORDERED: Lorazepam PYXIS KEY PRN (23:00)
[2021-12-08] MEDS ORDERED: LORazepam 2 mg VIAL 1 ml IV PUSH ONE (23:00)
[2021-12-08] MEDS ORDERED: Lorazepam PYXIS KEY ONE (23:06)
[2021-12-08] MEDS ORDERED: LORazepam 2 mg VIAL 1 ml ONE (23:07)
[2021-12-08] MEDS ORDERED: Haloperidol 5 mg/ml SDV IV/IM 5 MG/ML AMP IM ONE (23:19)
[2021-12-09 02:58] LABS: ABS Lymphocytes 1.1 10^3/ul (1.0-4.8); ABS Monocytes 0.6 10^3/ul (0-0.8); ABS Neutrophils 4.4 10^3/ul (1.5-7.7); Eosinophil % 0.4 %; Hematocrit 34 % (35-47); Hemoglobin 11.5 g/dL (12.0-16.0); Lymphocyte % 17.7 %; Mean Corpuscular HGB Conc 34 g/dL (31-36); Mean Corpuscular Hemoglobin 32 pg (27-31); Mean Corpuscular Volume 93 fL (80-97); Mean Platelet Volume 6.4 fL (7.4-10.4); Platelet Count 286 10^3/uL (150-450); Red Blood Count 3.64 10^6 /uL (3.70-4.87); Red Cell Distribution Width 13 % (10-15); White Blood Count 6.2 10^3/uL (3.5-10.8)
[2021-12-09 03:54] LABS: Calcium 8.8 mg/dL (8.6-10.3); Carbamazepine 6.6 mcg/mL (4.0-12.0); Potassium 3.8 mmol/L (3.5-5.0); eGFR CKD-EPI 44.4 (>60)
[2021-12-09] MEDS ORDERED: LORazepam 2 mg VIAL 1 ml IV PUSH ONE (07:44)
[2021-12-09] MEDS: LORazepam 2 mg VIAL 1 ml ONE ×2 (07:49→07:58)
[2021-12-09] MEDS: cefTRIAXone 1 gm/50 mL NS BAG 1 GM/50 ML BAG IVPB SCH (17:29)
[2021-12-09] MEDS: Enoxaparin 40 MG/0.4 ML SYR SUBCUT SCH (21:02)
[2021-12-10 06:00] LABS: ABS Eosinophils 0.1 10^3/ul (0-0.6); ABS Lymphocytes 1.3 10^3/ul (1.0-4.8); ABS Monocytes 0.5 10^3/ul (0-0.8); ABS Neutrophils 2.9 10^3/ul (1.5-7.7); Eosinophil % 1.2 %; Hematocrit 33 % (35-47); Hemoglobin 11.2 g/dL (12.0-16.0); Lymphocyte % 27.4 %; Mean Corpuscular HGB Conc 34 g/dL (31-36); Mean Corpuscular Hemoglobin 32 pg (27-31); Mean Corpuscular Volume 93 fL (80-97); Mean Platelet Volume 6.6 fL (7.4-10.4); Platelet Count 292 10^3/uL (150-450); Red Blood Count 3.52 10^6 /uL (3.70-4.87); Red Cell Distribution Width 13 % (10-15); White Blood Count 4.9 10^3/uL (3.5-10.8)
[2021-12-10 06:20] LABS: Calcium 8.8 mg/dL (8.6-10.3); Potassium 4.1 mmol/L (3.5-5.0); eGFR CKD-EPI 51.1 (>60)
[2021-12-10] MEDS ORDERED: cefTRIAXone 1 gm/50 mL NS BAG 1 GM/50 ML BAG IVPB SCH (16:00)
[2021-12-10 16:22] VITALS: BP 121/52
== END 2021-12-10 18:05 | disposition home or self-care (01) | DRG 690 ==
LOC: SSU 16:43 → ED 16:43 → SSU 12-08 02:04
PROVIDERS: ADMIT Hospitalist; ATTEND Internal Medicine